=== PATIENT | male | born 1945 | race African-American/Black ===

== ENCOUNTER 2016-04-10 18:03 | Emergency (ER) | payer OTHER ==
[2016-04-10 18:23] VITALS: BP 207/122; PULSE 95; BMI 22.4
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
[2016-04-10] MEDS ORDERED: amLODIPine BESYLATE 5 MG TABLET (FP) PO ONE (18:28)
[2016-04-10 18:59] LABS: BASOPHIL 0.7 % (0-2.0); EOSINOPHIL 1.1 % (0-4.5); MCH 31.7 pg (25.7-33.7); MCHC 33.5 g/dl (32.0-35.9); MEAN CELL VOLUME 94.6 fl (80-96); MEAN PLT VOLUME 8.1 fl (7.5-11.1); NEUTROPHILS 58.4 % (42.8-82.8); PLATELET COUNT 157 K/MM3 (134-434); RDW 13.2 % (11.9-15.9); WHITE BLOOD COUNT 3.9 K/mm3 (4.0-10.0)
[2016-04-10] MEDS ORDERED: amLODIPine BESYLATE 5 MG TABLET (FP) ONE (19:13)
[2016-04-10 19:18] VITALS: TEMP 98.6
[2016-04-10 19:28] LABS: ALBUMIN 4.1 g/dl (3.4-5.0); ANION GAP 7 (8-16); BILIRUBIN,TOTAL 0.3 mg/dL (0.2-1.0); CALCIUM 8.5 mg/dL (8.5-10.1); CO2 30 mmol/L (21-32); CREATININE 1.1 mg/dL (0.7-1.3); GLUCOSE,RANDOM 117 mg/dL (74-106); MAGNESIUM 2.6 mg/dL (1.8-2.4); PHOSPHOROUS 2.4 mg/dL (2.5-4.9); SGOT/AST 48 U/L (15-37); SGPT/ALT 14 U/L (12-78)
[2016-04-10 19:31] LABS: ALK PHOS 78 U/L (45-117); TROPONIN I 0.05 ng/ml (0.00-0.05)
[2016-04-10 21:18] LABS: URINE APPEARANCE CLEAR; URINE BILIRUBIN NEGATIVE (NEGATIVE); URINE BLOOD NEGATIVE (NEGATIVE); URINE COLOR YELLOW; URINE GLUCOSE (UA) NEGATIVE (NEGATIVE); URINE KETONE NEGATIVE (NEGATIVE); URINE LEUK ESTERASE NEGATIVE (NEGATIVE); URINE NITRITE NEGATIVE (NEGATIVE); URINE PROTEIN NEGATIVE (NEGATIVE); URINE UROBILINOGEN NEGATIVE E.U./dl (0.2-1.0)
[2016-04-10 22:46] LABS: TROPONIN I 0.06 ng/ml (0.00-0.05)
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
--- NOTE | 2016-04-15 16:24 | EKG ---
Test Reason : Blood Pressure : / mmHG Vent. Rate : 096 BPM Atrial Rate : 096 BPM P-R Int : 160 ms QRS Dur : 094 ms QT Int : 348 ms P-R-T Axes : 042 020 033 degrees QTc Int : 439 ms SINUS RHYTHM WITH PREMATURE SUPRAVENTRICULAR COMPLEXES OTHERWISE NORMAL ECG WHEN COMPARED WITH ECG OF 11-NOV-2015 11:10, T WAVE VARIATION Confirmed by ANTHONY RON MD ([id number]) on 04/15/2016 4:24:30 PM Referred By: Confirmed By:ANTHONY RON MD
== END 2016-04-10 23:05 | disposition home or self-care (01) ==
LOC: JER 18:03
DX: R55 Syncope and collapse (principal); I10 Essential (primary) hypertension; G20 Parkinson's disease; I42.9 Cardiomyopathy, unspecified; V43.52XA Car driver injured in collision with other type car in traffic accident, initial encounter; Y93.89 Activity, other specified; Y92.410 Unspecified street and highway as the place of occurrence of the external cause
CPT/HCPCS: 36415; 70450-TC; 71010-TC; 80053; 81003; 82550; 82553; 83735; 84100; 84484; 85025; 93005; 93010; 99283-25

== ENCOUNTER 2017-01-12 11:38 | Observation (INO) | payer OTHER ==
--- NOTE | 2017-01-12 11:43 | PDOC ---
Attending Attestation - Resident Resident Name: Oskar Hayward - ED Attending Attestation I have performed the following: I have examined & evaluated the patient, The case was reviewed & discussed with the resident, I agree w/resident's findings & plan, Exceptions are as noted - Physicial Exam PE: GENERAL: Awake, alert, and fully oriented, in no acute distress HEAD: No signs of trauma EYES: PERRLA, EOMI, sclera anicteric, conjunctiva clear ENT: Auricles normal inspection, hearing grossly normal, nares patent, oropharynx clear without exudates. Moist mucosa NECK: Normal ROM, supple, no lymphadenopathy, JVD, or masses LUNGS: Breath sounds equal, clear to auscultation bilaterally. No wheezes, and no crackles HEART: Regular rate and rhythm, normal S1 and S2, no murmurs, rubs or gallops ABDOMEN: Soft, nontender, normoactive bowel sounds. No guarding, no rebound. No masses EXTREMITIES: Normal range of motion, no edema. No clubbing or cyanosis. No cords, erythema, or tenderness NEUROLOGICAL: Cranial nerves II through XII grossly intact. Normal speech, normal gait. +R facial droop (slight- with droop to R forehead; nasolabial fold intact) SKIN: Warm, Dry, normal turgor, no rashes or lesions noted. - Medical Decision Making 01/12/17 12:24 Case d/w Dr. Meza, field artillery operations specialist for neuro. NIHSS is very low at 1, not a tPA candidate. <Madie Galdamez - Last Filed: 01/12/17 12:39> - HPI HPI: 01/12/17 12:43 71 year old male, with significant past medical history of parkinson's, nonischemic cardiomyopathy, HTN, who presents to the emergency room s/p syncopal episode this morning at 10:30am. The patient slumped over at the table after eating breakfast. Denies headache, lightheadedness, chest pain prior to or after the fall. The patient does not have any complaints at the time. Denies fever, chills, nausea, vomiting. Denies recent travel. Denies sick contact. PCP: Dr. Vin Galan Neurologist: Dr. Meza <Millie Coburn - Last Filed: 01/12/17 12:43> - Medical Decision Making 01/12/17 14:[address] Schmidt [phone] 01/12/17 14:[address] Schmidt at [phone] <Brenda Devries - Last Filed: 01/12/17 14:53> NIH Stroke Scale - Last Known Well Date/Time & Onset Date Last Known Well: 01/12/17 Time Last Known Well: 10:30 - Initial Evaluation Level of consciousness: Alert Ask patient the month and their age: Answers both correctly Ask patient to open & close eyes; make fist and let go: Obeys both correctly Best gaze (horizontal eye movement): Normal Visual field testing: No visual field loss Facial paresis (Show teeth/raise eyebrows/close eyes tight): Minor paralysis ( flattened nasolabial fold, asymmetry on smiling) Motor Function: Left Arm: Normal Motor Function: Right Arm: Normal (extends arm 90 (or 45) degrees for 10 seconds without drift Motor Function: Left Leg: Normal (extends leg 30 degrees for 5 seconds without drift) Motor Function: Right Leg: Normal (extends leg 30 degrees for 5 seconds without drift) Limb Ataxia: No ataxia Sensory(Use pinprick test arms,legs,trunk,face/side to side): Normal Best language (Describe picture, name items, read sentences): No Aphasia Dysarthria (read several words): Normal articulation Extinction and Inattention: No abnormality - Total Score NIH Stroke Scale Score: 1 <Madie Galdamez - Last Filed: 01/12/17 12:39> tPA Exclusion Checklist 0-3hr - Time Elapsed Date last known well: 01/12/17 Time last known well: 10:30 Elaspsed time: Day(s) and 2 Hour(s) and 9 Minutes - Thrombolytic Therapy Candidate Is the patient eligible for Thrombolytic Therapy?: No - Exclusion Criteria 0-3hr SBP greater than 185 or DBP greater than 110mmHg despite tx: No Recent IC/spinal surgery,head trauma or stroke w/in last 3mo: No Hx of previous IC hemorrhage, IC neoplasm, AVM or aneurysm: No Active internal bleeding: No Blding diathesis(low plt ct, inc PTT,INR>1.7 or use of NOAC): No Symptoms suggest subarachnoid hemorrhage: No CT demonstrates multilobar infarct(>1/3 cerebral hemiphere): No Arterial puncture at noncompressible site in previous 7 days: No Blood glucose concentration less than 50mg/dL (2.7mmol/L): No - Relative Exclusion Criteria 0-3h Life expectancy <1yr/severe co-morbid illness/BACK SHOE CUTTER on admit: No : No Patient/family refused: No Rapid improvement: No Stroke severity too mild: Yes Recent acute [place] (w/in previous 3 months): No Seizure at onset with postictal residual neuro impairments: No Major surgery or serious trauma w/in previous 14 days: No Recent GI or hemorrhage (w/in previous 21 days): No - Ineligibility reason(s) Reasons No tPA given: See reason(s) noted above <Madie Galdamez - Last Filed: 01/12/17 12:39>
[2017-01-12] MEDS ORDERED: SODIUM CHLORIDE 1,000 ML IV SCH (12:15)
--- NOTE | 2017-01-12 12:16 | PDOC ---
History of Present Illness <Madie Galdamez - Last Filed: 01/12/17 12:29> - General History Source: Patient Exam Limitations: No Limitations - History of Present Illness Initial Comments: 01/12/17 12:30 71 year old M with pmh of HTN, parkinsons, nonischemic Cardiomyopathy, and multiple syncopal episodes in the past presenting with syncopal episode. Patient was eating breakfast with his sister at 1030 am. He slumped over and was unconscious for 20 minutes per sister. Sister called EMS and brought him in to the ED. Patient denies any preceding symptoms (DHILLON, chest pain, palpitations) , seizure activity, urinary incontinence, head trauma. PSH: denies All: NKDA SH: denies PCP: Vin Galan Neurology: Dr. Garcia --per patient <Oskar Hayward - Last Filed: 01/12/17 14:59> - General Chief Complaint: Syncope/Near Syncope Stated Complaint: altered mental status Time Seen by Provider: 01/12/17 11:42 Past History <Madie Galdamez - Last Filed: 01/12/17 12:29> - Past Medical History Cardiac Disorders: Yes (cardiomyopathy"loop" was removed) Disorders: Yes (bph) HTN: Yes - Surgical History Cardiac Surgery: Yes ("loop") - Suicide/Smoking/Psychosocial Hx Smoking History: Never smoked Have you smoked in the past 12 months: No Number of Cigarettes Smoked Daily: 0 Information on smoking cessation initiated: No Hx Alcohol Use: No Drug/Substance Use Hx: No Substance Use Type: None Hx Substance Use Treatment: No <Oskar Hayward - Last Filed: 01/12/17 14:59> - Past Medical History Allergies/Adverse Reactions: Allergies Allergy/AdvReac Type Severity Reaction Status Date / Time No Known Allergies Allergy Verified 04/10/16 18:20 Home Medications: Ambulatory Orders Amlodipine Besylate [Norvasc -] 1 tab PO DAILY 01/12/17 Carbidopa/Levodopa [Carbidopa-Levo ER 50-200 Tab] 1 tab PO HS 01/12/17 Carbidopa/Levodopa [Carbidopa-Levodopa 25-250 Tab] 1 tab PO BID 01/12/17 Escitalopram Oxalate [Lexapro -] 1 tab PO DAILY 01/12/17 Losartan Potassium 1 tab PO DAILY 01/12/17 Review of Systems - Review of Systems Able to Perform ROS?: Yes Comments:: 01/12/17 12:16 GENERAL/CONSTITUTIONAL: No fever or chills. No weakness. HEAD, EYES, EARS, NOSE AND THROAT: No acute change in vision. No ear pain or discharge. No sore throat. CARDIOVASCULAR: No chest pain or shortness of breath RESPIRATORY: No cough, wheezing, or hemoptysis. GASTROINTESTINAL: No nausea, vomiting, diarrhea or constipation. GENITOURINARY: No dysuria, frequency, or change in urination. MUSCULOSKELETAL: No joint or muscle swelling or pain. No neck or back pain. SKIN: No rash NEUROLOGIC: No headache, vertigo, loss of consciousness, or change in strength/ sensation. ENDOCRINE: No increased thirst. No abnormal weight change HEMATOLOGIC/LYMPHATIC: No anemia, easy bleeding, or history of blood clots. ALLERGIC/IMMUNOLOGIC: No hives or skin allergy. <Oskar Hayward - Last Filed: 01/12/17 14:59> *Physical Exam - Vital Signs Last Vital Signs Temp Pulse Resp BP Pulse Ox 98.7 F 72 16 141/90 98 01/12/17 12:02 01/12/17 12:02 01/12/17 12:02 01/12/17 12:02 01/12/17 12:02 <Madie Galdamez - Last Filed: 01/12/17 12:29> - Vital Signs Last Vital Signs Temp Pulse Resp BP Pulse Ox 98.7 F 72 16 141/90 98 01/12/17 12:02 01/12/17 12:02 01/12/17 12:02 01/12/17 12:02 01/12/17 12:02 - Physical Exam Comments: 01/12/17 12:16 GENERAL: Awake, alert, and fully oriented, in no acute distress, +resting tremor HEAD: No signs of trauma, normocephalic, atraumatic EYES: PERRLA, EOMI, sclera anicteric, conjunctiva clear ENT: Auricles normal inspection, hearing grossly normal, nares patent, oropharynx clear without exudates. Moist mucosa NECK: Normal ROM, supple, no lymphadenopathy, JVD, or masses LUNGS: No distress, speaks full sentences, clear to auscultation bilaterally HEART: Regular rate and rhythm, normal S1 and S2, no murmurs, rubs or gallops, peripheral pulses normal and equal bilaterally. ABDOMEN: Soft, nontender, normoactive bowel sounds. No guarding, no rebound. No masses EXTREMITIES: Normal inspection, Normal range of motion, no edema. No clubbing or cyanosis. NEUROLOGICAL: Right sided facial droop, decreased sensation in V1 distribution, Normal speech, Gait not observed, 5/5 strenght in UE/LE, sensation intact bilateral extremities. Cerebellar test unable to assess 2/2 to resting tremor SKIN: Warm, Dry, normal turgor, no rashes or lesions noted. <Oskar Hayward - Last Filed: 01/12/17 14:59> ED Treatment Course - RADIOLOGY Radiology Studies Ordered: Category Date Time Status HEAD CT (STROKE) [CT] Stat CT Scan 01/12/17 12:14 Ordered <Madie Galadmez - Last Filed: 01/12/17 12:29> - LABORATORY CBC & Chemistry Diagram: 01/12/17 12:26 01/12/17 13:41 <Oskar Hayward - Last Filed: 01/12/17 14:59> Medical Decision Making - Medical Decision Making 01/12/17 12:34 71 year old M with pmh of HTN, parkinsons, nonischemic Cardiomyopathy, and multiple syncopal episodes in the past presenting with syncopal episode. Code [place] Called. NIHSS- 1 Plan: Stroke order set ordered. Neurology called, Head CT performed. Head CT negative for any acute intracranial bleed <Oskar Hayward - Last Filed: 01/12/17 14:59> *DC/Admit/Observation/Transfer <Madie Galdamez - Last Filed: 01/12/17 12:29> - Discharge Dispostion Admit: Yes <Oskar Hayward - Last Filed: 01/12/17 14:59> Diagnosis at time of Disposition: CVA (cerebral vascular accident) Qualifiers: CVA mechanism: unspecified Qualified Code(s): I63.9 - Cerebral infarction, unspecified - Referrals Referrals: Vin Galan MD [Primary Care Provider] -
[2017-01-12 12:43] LABS: BASOPHIL 0.6 % (0-2.0); EOSINOPHIL 0.9 % (0-4.5); MCH 31.5 pg (25.7-33.7); MCHC 33.4 g/dl (32.0-35.9); MEAN CELL VOLUME 94.4 fl (80-96); NEUTROPHILS 57.6 % (42.8-82.8); PLATELET COUNT 154 K/MM3 (134-434); RDW 13.5 % (11.9-15.9); WHITE BLOOD COUNT 5.1 K/mm3 (4.0-10.0)
[2017-01-12 12:55] LABS: INR 1.05 (0.82-1.09); PROTHROMBIN TIME (PATIENT) 11.9 SEC (9.98-11.88)
[2017-01-12 14:14] LABS: ALBUMIN 4.1 g/dl (3.4-5.0); ANION GAP 9 (8-16); CALCIUM 9.1 mg/dL (8.5-10.1); CO2 30 mmol/L (21-32); CREATININE 1.3 mg/dL (0.7-1.3); GLUCOSE,RANDOM 106 mg/dL (74-106); SGPT/ALT 21 U/L (12-78)
[2017-01-12 14:15] LABS: ALK PHOS 67 U/L (45-117); BILIRUBIN,TOTAL 0.8 mg/dL (0.2-1.0); TOT PROT 7.6 g/dl (6.4-8.2)
[2017-01-12 14:16] LABS: SGOT/AST 36 U/L (15-37)
[2017-01-12 14:21] LABS: URINE APPEARANCE CLEAR; URINE BILIRUBIN NEGATIVE (NEGATIVE); URINE BLOOD NEGATIVE (NEGATIVE); URINE COLOR STRAW; URINE GLUCOSE (UA) NEGATIVE (NEGATIVE); URINE KETONE NEGATIVE (NEGATIVE); URINE NITRITE NEGATIVE (NEGATIVE); URINE PROTEIN NEGATIVE (NEGATIVE); URINE UROBILINOGEN NEGATIVE mg/dL (0.2-1.0)
[2017-01-12 14:42] LABS: CHOLESTEROL 181 mg/dL (50-200)
[2017-01-12 14:44] LABS: TROPONIN I 0.06 ng/ml (0.00-0.05)
[2017-01-12 14:53] LABS: CPK 277 IU/L (39-308)
[2017-01-12] MEDS ORDERED: ASPIRIN 81 MG CHEWABLE TABLETS PO ONE (14:56)
[2017-01-12] MEDS ORDERED: ATORVASTATIN CA 80 MG TABLET (FP) PO ONE (14:56)
[2017-01-12] MEDS ORDERED: ASPIRIN 325 MG TABLET ONE (15:14)
[2017-01-12] MEDS ORDERED: ATORVASTATIN CA 80 MG TABLET (FP) ONE (15:15)
[2017-01-12 16:00] VITALS: BMI 22.8
--- NOTE | 2017-01-12 17:16 | CON.NEURO ---
Consult - History of Present Illness History of Present Illness: cc episode of passing out. HPI 71 year old male history of htn, and parkinson disease, and cardiomyopathy . He has history of syncopal episode in past. He was having breastfast and slump over in chair. There was no tonic clonic activity, no tongue bite or incontinence and there was no post ictal confusion. As per sister, whole episodes may have lasted 15-20 minute. His was at bed side and sister was at bed side. They both feels that he is back to his baseline. He has been diagnoed with PD and he has blood pressure which fluctuate alot. 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 Cardio/Vascular: Yes: CHF, HTN, Other (Non-ischemic cardiomyopathy with recovery of LV function, Autonomic dysfunction with profound orthostatic hypotension) - Alcohol/Substance Use Hx Alcohol Use: No - Smoking History Smoking history: Never smoked Have you smoked in the past 12 months: No Aproximately how many cigarettes per day: 0 - Social History Usual Living Arrangement: With Spouse ADL: Independent History of Recent Travel: No Home Medications - Allergies Allergies/Adverse Reactions: Allergies Allergy/AdvReac Type Severity Reaction Status Date / Time No Known Allergies Allergy Verified 04/10/16 18:20 - Home Medications Home Medications: Ambulatory Orders Amlodipine Besylate [Norvasc -] 1 tab PO DAILY 01/12/17 Carbidopa/Levodopa [Carbidopa-Levo ER 50-200 Tab] 1 tab PO HS 01/12/17 Carbidopa/Levodopa [Carbidopa-Levodopa 25-250 Tab] 1 tab PO BID 01/12/17 Escitalopram Oxalate [Lexapro -] 1 tab PO DAILY 01/12/17 Losartan Potassium 1 tab PO DAILY 01/12/17 Physical Exam-Neuro Vital Signs: Vital Signs Temperature 98 F 01/12/17 16:34 Pulse Rate 86 01/12/17 16:34 Respiratory Rate 18 01/12/17 16:34 Blood Pressure 148/90 01/12/17 16:34 O2 Sat by Pulse Oximetry (%) 98 01/12/17 15:55 Labs: INR, PTT INR 1.05 (0.82-1.09) 01/12/17 12:26 - Neuro Exam Level Of Consciousness: Yes: Alert, Oriented to Person, Oriented to Place, Oriented to Time (Alert oriented x 3 speech is hypophonic and slow, able to follow simple and complex command) Eyes: Yes: PERRL Speech: Other Cranial Nerves II-XII Intact: Yes DTR's: 1+ Left Bicep, 1+ Right Bicep, 1+ Left Tricep, 1+ Right Tricep, 1+ Left Brachioradialis, 1+ Right Brachioradialis Motor Strength: 5/5: Left Arm, Right Arm, Left Leg, Right Leg Gait: Deferred Imaging - Results Cat Scan: Report Reviewed Assessment/Plan cc episode of passing out. HPI 71 year old male history of htn, and parkinson disease, and cardiomyopathy . He has history of syncopal episode in past. He was having breastfast and slump over in chair. There was no tonic clonic activity, no tongue bite or incontinence and there was no post ictal confusion. As per sister, whole episodes may have lasted 15-20 minute. His was at bed side and sister was at bed side. They both feels that he is back to his baseline. He has been diagnoed with PD and he has blood pressure which fluctuate alot. Past Medical History as above. No allergies no surgeries No history of drug abuse, he lives with and Retired Neurological Examination Alert oriented x 3 speech is hypophonic and slow, able to follow simple and complex command masked facies CN eomi and pupils is reactive no face asymmetry motor is 5/5 all four extremity there is bradykinesia in all four extremity there is mild resting tremor noticed on left side sensation is normal gait not tested Assessment- 1. this episodes seems to be syncope , unlikely to be seizure as there was no tonic clonic activity, post ictal confusion, no tongue bite or incontinence , ct head is normal 2. 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 suggest to do eeg and follow up outpatient 3. conitinue tele monitoring Thanks for consult Stan Meza MD
[2017-01-12 17:27] LABS: URINE LEUK ESTERASE Negative (NEGATIVE)
[2017-01-12 19:21] LABS: TROPONIN I 0.06 ng/ml (0.00-0.05)
--- NOTE | 2017-01-12 19:29 | HP ---
Admitting History and Physical - Admission History of Present Illness: Pt is a 71 y/o male who is a poor historian. Pt has a PMH significant for syncope, alzheimer's, parkinson's dz, nonischemic cardiomyopathy and HTN. Pt presented to the ER after a syncopal episode at home. Pt states he doesn't remember for how long it lasted. As per pt's daughter it lasted about 20 mins after eating breakfeast. In the ER pt had ct scan head wc did not show any acute pathology. 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 Cardiovascular: Yes: CHF, HTN, Other (Non-ischemic cardiomyopathy with recovery of LV function, Autonomic dysfunction with profound orthostatic hypotension) - Past Surgical History Past Surgical History: Yes: None - Smoking History Smoking history: Never smoked Have you smoked in the past 12 months: No Aproximately how many cigarettes per day: 0 - Alcohol/Substance Use Hx Alcohol Use: No - Social History ADL: Independent History of Recent Travel: No Home Medications - Allergies Allergies/Adverse Reactions: Allergies Allergy/AdvReac Type Severity Reaction Status Date / Time No Known Allergies Allergy Verified 04/10/16 18:20 - Home Medications Home Medications: Ambulatory Orders Amlodipine Besylate [Norvasc -] 1 tab PO DAILY 01/12/17 Carbidopa/Levodopa [Carbidopa-Levo ER 50-200 Tab] 1 tab PO HS 01/12/17 Carbidopa/Levodopa [Carbidopa-Levodopa 25-250 Tab] 1 tab PO BID 01/12/17 Escitalopram Oxalate [Lexapro -] 1 tab PO DAILY 01/12/17 Losartan Potassium 1 tab PO DAILY 01/12/17 Family Disease History - Family Disease History Family History: Unremarkable Review of Systems - Review of Systems Constitutional: reports: No Symptoms Eyes: reports: No Symptoms HENT: reports: No Symptoms Neck: reports: No Symptoms Cardiovascular: reports: Other (syncope) Respiratory: reports: No Symptoms Gastrointestinal: reports: No Symptoms Physical Examination Vital Signs: Vital Signs Temperature 98 F 01/12/17 16:34 Pulse Rate 86 01/12/17 16:34 Respiratory Rate 18 01/12/17 16:34 Blood Pressure 148/90 01/12/17 16:34 O2 Sat by Pulse Oximetry (%) 98 01/12/17 15:55 Constitutional: Yes: No Distress Eyes: Yes: WNL HENT: Yes: WNL Neck: Yes: WNL, Supple Cardiovascular: Yes: WNL, Regular Rate and Rhythm Respiratory: Yes: WNL, Regular, CTA Bilaterally Gastrointestinal: Yes: WNL, Normal Bowel Sounds, Soft Musculoskeletal: Yes: WNL Extremities: Yes: WNL Edema: No Neurological: Yes: WNL, Alert, Oriented ...Motor Strength: WNL Problem List - Problems (1) Syncope Assessment/Plan: Admitted to tele Serial cpk/troponin Cardio/neuro consults Check echo/carotid doppler Check MRI brain Pt also has a h/o orthostatic hypotension Will need to monitor closely Code(s): R55 - SYNCOPE AND COLLAPSE (2) HTN (hypertension) Assessment/Plan: Cont norvasc/losartan/asa Code(s): I10 - ESSENTIAL (PRIMARY) HYPERTENSION (3) Alzheimers disease Code(s): G30.9 - ALZHEIMER'S DISEASE, UNSPECIFIED (4) Nonischemic cardiomyopathy Code(s): I42.9 - CARDIOMYOPATHY, UNSPECIFIED (5) Parkinson disease Assessment/Plan: Cont sinemet Code(s): G20 - PARKINSON'S DISEASE
[2017-01-12] MEDS ORDERED: PT OWN MED DRAWER 7, Y5N ONE (21:00)
[2017-01-12] MEDS: HEPARIN NA (PORCINE) 5,000 UNITS/ML 1ML VIAL SQ SCH (21:13)
[2017-01-12] MEDS ORDERED: CARBIDOPA/LEVODOPA 25/250 TABLET (FP) PO SCH (22:00)
[2017-01-12] MEDS ORDERED: ATORVASTATIN CA 40 MG TABLET (FP) PO SCH (22:00)
[2017-01-13] MEDS: CARBIDOPA/LEVODOPA 25/250 TABLET (FP) PO SCH ×2 (05:39→13:26)
[2017-01-13 06:59] LABS: BASOPHIL 0.4 % (0-2.0); EOSINOPHIL 1.8 % (0-4.5); MCH 31.4 pg (25.7-33.7); MCHC 33.7 g/dl (32.0-35.9); MEAN CELL VOLUME 93.1 fl (80-96); MEAN PLT VOLUME 8.3 fl (7.5-11.1); NEUTROPHILS 46.3 % (42.8-82.8); PLATELET COUNT 144 K/MM3 (134-434); RDW 13.2 % (11.9-15.9); WHITE BLOOD COUNT 4.3 K/mm3 (4.0-10.0)
[2017-01-13 07:26] LABS: ALBUMIN 3.3 g/dl (3.4-5.0); ALK PHOS 64 U/L (45-117); ANION GAP 7 (8-16); BILIRUBIN,TOTAL 0.4 mg/dL (0.2-1.0); CALCIUM 8.4 mg/dL (8.5-10.1); CO2 29 mmol/L (21-32); GLUCOSE,RANDOM 78 mg/dL (74-106); SGOT/AST 18 U/L (15-37); SGPT/ALT 9 U/L (12-78)
[2017-01-13 07:49] LABS: TROPONIN I 0.07 ng/ml (0.00-0.05)
--- NOTE | 2017-01-13 08:49 | CON.CARD ---
Consult Consult Specialty:: Cardiology Referred by:: Dr. Schmidt Reason for Consultation:: Syncope - History of Present Illness Chief Complaint: Syncope History of Present Illness: 71 year old man with a history of recurrent syncope secondary to autonomic dysfunction/orthostatic hypotension related to his parkinsons disease, HTN with fluctuating BP, NICM, h/o EPS and Loop recorder which was unremarkable, follows at [facility], admitted with another episode of syncope. Pt states that he was sitting at the table yesterday eating and the next thing he knew EMS was there. He does not recall the event. He denies any preceding symptoms before this event. He has not had syncope recently. He does note his BP has been running high lately when normally it runs low. 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 Cardio/Vascular: Yes: CHF, HTN, Other (Non-ischemic cardiomyopathy with recovery of LV function, Autonomic dysfunction with profound orthostatic hypotension) - Past Surgical History Past Surgical History: Yes: None - Alcohol/Substance Use Hx Alcohol Use: No - Smoking History Smoking history: Never smoked Have you smoked in the past 12 months: No Aproximately how many cigarettes per day: 0 - Social History Usual Living Arrangement: With Spouse ADL: Independent History of Recent Travel: No Home Medications - Allergies Allergies/Adverse Reactions: Allergies Allergy/AdvReac Type Severity Reaction Status Date / Time No Known Allergies Allergy Verified 04/10/16 18:20 - Home Medications Home Medications: Ambulatory Orders Amlodipine Besylate [Norvasc -] 1 tab PO DAILY 01/12/17 Carbidopa/Levodopa [Carbidopa-Levo ER 50-200 Tab] 1 tab PO HS 01/12/17 Carbidopa/Levodopa [Carbidopa-Levodopa 25-250 Tab] 1 tab PO BID 01/12/17 Escitalopram Oxalate [Lexapro -] 1 tab PO DAILY 01/12/17 Losartan Potassium 1 tab PO DAILY 01/12/17 Family Disease History - Family Disease History Family History: Denies Review of Systems - Review of Systems Constitutional: denies: No Symptoms, Chills, Diaphoresis, Fever, Lethargy, Loss of Appetite, Malaise, Night Sweats, Unintentional Wgt. Loss, Weakness, Other Eyes: denies: No Symptoms, Blind Spots, Blurred Vision, Double Vision, Eye Pain , Floaters, Photophobia, Recent Change in Vision, Other HENT: denies: No Symptoms, Difficult Swallowing, Ear Discharge, Ear Pain, Epistaxis, Gingival Bleeding, Hearing Loss, Mouth Swelling, Nasal Congestion, Ocular Prosthesis, Throat Pain, Toothache, Ringing in Ears, Other Neck: denies: No Symptoms, Decreased ROM, Lumps, Pain on Movement, Stiffness, Swollen Glands, Tenderness, Other Cardiovascular: denies: No Symptoms, Chest Pain, Edema, Palpitations, Shortness of Breath, Other Respiratory: denies: No Symptoms, Cough, Exercise Intolerance, Hemoptysis, Orthopnea, PND, Snoring, SOB, SOB on Exertion, Wheezing, Other Gastrointestinal: denies: No Symptoms, Abdominal Pain, Bloating, Constipation, Diarrhea, Dysphagia, Indigestion, Melena, Nausea, Rectal Bleeding, Vomiting, Vomiting Blood, Other Genitourinary: denies: No Symptoms, Burning, Discharge, Dysuria, Flank Pain, Frequency, Hematuria, Incontinence, Lesions, Menses, Pain, Testicular Mass, Testicular Pain, Testicular Swelling, Urgency, Vaginal Bleeding, Other Breasts: denies: No Symptoms Reported, See HPI, Breast Implants, Discharge from Nipple, Lumps, Pain, Skin Changes, Other Musculoskeletal: denies: No Symptoms, Back Pain, Crepitus, Decreased ROM, Extremity Pain, Joint Pain, Joint Swelling, Muscle Pain, Muscle Cramps, Muscle Weakness, Other Integumentary: denies: No Symptoms, Blister, Bruising, Change in Color, Eczema, Erythema, Incision, Lesions, Lump, Pallor, Pruritis, Rash, Wound, Other Neurological: reports: Syncope, Tremors. denies: No Symptoms, Change in LOC, Change in Speech, Confusion, Dizziness, Headache, Incoordination, Numbness, Parasthesia, Pre-Existing Deficit, Seizure, Unsteady Gait, Weakness, Other Endocrine: denies: No Symptoms, Excessive Sweating, Flushing, Increased Hunger, Increased Thirst, Intolerance to Cold, Intolerance to Heat, Unexplained Weight Gain, Unexplained Weight Loss, Other Hematology/Lymphatic: denies: No Symptoms, Easily Bruised, Excessive Bleeding, Swollen Glands, Other Psychiatric: denies: No Symptoms, Altered Sleep Pattern, Anxiety, Depression, Hallucinations, Panic, Paranoia, Suicidal, Other - Risk Factors Known Risk Factors: Yes: Age, Hypertension Vital Signs: Vital Signs Temperature 98.1 F 01/13/17 05:15 Pulse Rate 86 01/13/17 05:15 Respiratory Rate 18 01/13/17 05:15 Blood Pressure 161/98 01/13/17 05:15 O2 Sat by Pulse Oximetry (%) 99 01/12/17 21:00 Constitutional: Yes: Well Nourished, No Distress, Calm Eyes: Yes: WNL, Conjunctiva Clear, EOM Intact, PERRL HENT: Yes: WNL, Atraumatic, Normocephalic Neck: Yes: WNL, Supple, Trachea Midline Respiratory: Yes: WNL, Regular, CTA Bilaterally. No: Rales, Rhonchi, Wheezes Gastrointestinal: Yes: WNL, Normal Bowel Sounds, Soft. No: Distention, Tenderness Renal/: Yes: WNL Cardiovascular: Yes: WNL, Regular Rate and Rhythm. No: Bradycardia, Tachycardia , Pulse Irregular, Gallop, Rub, Varicosities JVD: No Carotid Bruit: No PMI: Non-Displaced Heart Sounds: Yes: S1, S2. No: Split S2, S3, S4, Clicks, Gallop, Rub, Bruit Murmur: No: Systolic Murmur, Diastolic Murmur Musculoskeletal: Yes: WNL Extremities: Yes: WNL Edema: No Peripheral Pulses WNL: Yes Peripheral Pulses: 2+ Left Doralis Pedis, 2+ Right Dorsalis Pedis Integumentary: Yes: WNL Neurological: Yes: Alert, Oriented Psychiatric: Yes: Alert, Oriented - Other Data Labs, Other Data: CBC, BMP 01/13/17 06:25 01/13/17 06:25 INR, PTT INR 1.05 (0.82-1.09) 01/12/17 12:26 Troponin, BNP 01/12/17 01/13/17 18:00 06:25 Troponin I 0.06 H 0.07 H Troponin, BNP 01/12/17 01/13/17 18:00 06:25 Troponin I 0.06 H 0.07 H ekg nsr 78bpm, apc, no sig st abnl Echo: Report Reviewed Prior Cardiac Procedures: Cardiac Catheterization Imaging - Results Chest X-ray: Report Reviewed, Image Reviewed EKG: Report Reviewed, Image Reviewed Other: Report Reviewed, Image Reviewed (tele-nsr, apcs, pvcs, 3 beats nsvt) Assessment/Plan 71 year old man with a history of recurrent syncope secondary to autonomic dysfunction/orthostatic hypotension related to his parkinsons disease, HTN with fluctuating BP, NICM, h/o EPS and Loop recorder which was unremarkable, follows at [facility], admitted with another episode of syncope. Pt states that he was sitting at the table yesterday eating and the next thing he knew EMS was there. He does not recall the event. He denies any preceding symptoms before this event. He has not had syncope recently. He does note his BP has been running high lately when normally it runs low. Syncope-chronic intermittent secondary to autonomic dysfunction/orthostatic hypotension -unlikely arrhythmia -ekg wnl, no sig events on telemetry -cardiac enzymes wnl -pt is followed closely as outpatient for these events -no additional inpatient cardiac work up needed at this time -pt is acceptable for discharge home from a cardiac standpoint, recc close outpatient f/up this week, pt is aware of safety precautions and lifestyle modifications HTN-elevated, in past runs low normal -cont current home medical regimen and recc close outpatient f/up -goal is lenient control of BP to avoid orthostatic hypotension NICM-with recovery in LV function -euvolemic -cont home medical regimen, outpatient f/up Prior work up as below: ECHO- 09/06- 1. Overall, normal LV systolic function. 2. Normal RV size and mildly reduced RV function. 3. Thickened mitral valve. 4. There is a 0.4 x 0.7 cm echodensity on the posterior mitral valve leaflet which likely represents focal calcification (stable from 2014). 5. Mild LVH. 6. Insufficient TR to measure pulmonary artery pressures. STRESS- 09/05- persantine- nml perfusion, lvef 45% CATH- 07/03- normal cors, no as, nml lv fxn, nml lvedp CAROTID DOPPLER- 09/06- no ctd stenosis cardiac mri- nml bivent size and fxn, non specific scarring, LOOP- 06/29/13- reveal interrogation- reported as afib episodes but more likely sr with apcs
[2017-01-13] MEDS: HEPARIN NA (PORCINE) 5,000 UNITS/ML 1ML VIAL SQ SCH (09:21)
[2017-01-13] MEDS ORDERED: LOSARTAN POTASSIUM 50 MG TABLET (FP) PO SCH (10:00)
[2017-01-13] MEDS ORDERED: ASPIRIN COATED 81 MG TABLET.EC PO SCH (10:00)
[2017-01-13] MEDS ORDERED: ESCITALOPRAM OXALATE 10 MG TABLET (FP) PO SCH (10:00)
[2017-01-13] MEDS ORDERED: amLODIPine BESYLATE 2.5 MG TABLET (FP) PO SCH (10:00)
[2017-01-13 10:01] LABS: CHOLESTEROL 141 mg/dl
--- NOTE | 2017-01-13 10:11 | EKG ---
Test Reason : Blood Pressure : / mmHG Vent. Rate : 078 BPM Atrial Rate : 078 BPM P-R Int : 156 ms QRS Dur : 084 ms QT Int : 378 ms P-R-T Axes : 055 032 027 degrees QTc Int : 430 ms NORMAL SINUS RHYTHM WITH SINUS ARRHYTHMIA PREMATURE ATRIAL COMPLEXES WHEN COMPARED WITH ECG OF 10-APR-2016 18:12, NO SIGNIFICANT CHANGE WAS FOUND Confirmed by ANTHONY RON MD ([id number]) on 01/13/2017 10:11:03 AM Referred By: Confirmed By:ANTHONY RON MD
--- NOTE | 2017-01-13 13:02 | PN ---
Progress Note (short form) - Note Progress Note: He is admitted for episode of passing out. 71 year old male history of htn, and parkinson disease, and cardiomyopathy . He has history of syncopal episode in past. He was having breastfast and slump over in chair. There was no tonic clonic activity, no tongue bite or incontinence and there was no post ictal confusion. As per sister, whole episodes may have lasted 15-20 minute. His was at bed side and sister was at bed side. They both feels that he is back to his baseline. He has been diagnoed with PD and he has blood pressure which fluctuate alot. Neurological Examination Alert oriented x 3 speech is hypophonic and slow, able to follow simple and complex command masked facies CN eomi and pupils is reactive no face asymmetry motor is 5/5 all four extremity there is bradykinesia in all four extremity there is mild resting tremor noticed on left side sensation is normal gait not tested Assessment- 1. this episodes seems to be syncope , unlikely to be seizure as there was no tonic clonic activity, post ictal confusion, no tongue bite or incontinence , ct head is normal 2. 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 eeg is being done and would follow up Thanks for consult Stan Meza MD
[2017-01-13 15:45] VITALS: BP 106/60; PULSE 94; TEMP 97.7
== END 2017-01-13 16:29 | disposition home or self-care (01) ==
LOC: JER 11:38 → JERBED 14:55 → UNDOADMOB 14:55 → INTOOBSV 14:55 → J4W 15:02 → JERBED 16:02 → J4W 16:02 → UNDOADMOB 01-13 15:02
PROVIDERS: ADMIT Internal Medicine; ATTEND Internal Medicine
PROC: 3E0337Z Introduction of Electrolytic and Water Balance Substance into Peripheral Vein, Percutaneous Approach (ICD-10-PCS; principal; 2017-01-12)
PROC: 3E013GC Introduction of Other Therapeutic Substance into Subcutaneous Tissue, Percutaneous Approach (ICD-10-PCS; 2017-01-12)
DX: R55 Syncope and collapse (principal); I10 Essential (primary) hypertension; I42.9 Cardiomyopathy, unspecified; I50.9 Heart failure, unspecified; G20 Parkinson's disease; G30.9 Alzheimer's disease, unspecified; N40.0 Benign prostatic hyperplasia without lower urinary tract symptoms
CPT/HCPCS: 36415; 70450-TC; 80053; 80061; 81003; 82550; 82553; 83721; 84484; 85025; 85610; 93005; 93010; 93306-TC; 93880-TC; 95816; 96372; 97116-GP; 97161-GP; 99285-25; G0378; J1644

== ENCOUNTER 2017-10-02 14:53 | Inpatient (IN) | payer OTHER ==
--- NOTE | 2017-10-02 15:00 | PDOC ---
History of Present Illness - General Chief Complaint: Syncope/Near Syncope Stated Complaint: SYNCOPE History Source: Patient - History of Present Illness Initial Comments: The patient is a 71M with a history of Parkinson's Disease who presents for evaluation for syncopal fall x4 today. The patient endorses a history of syncopal falls of unknown etiology and reports a negative cardiogenic evaluation. His reports that he fell three times this morning, and on the fourth fall at approximately 1400, the patient also had assciated tonic-clonic seizure-like activity with +LOC and +urinary & fecal incontinence. She does endorse a history of urinary incontinence for the patient; however, the fecal incontinence is new. 10/02/17 16:27 Past History - Past Medical History Allergies/Adverse Reactions: Allergies Allergy/AdvReac Type Severity Reaction Status Date / Time No Known Allergies Allergy Verified 04/10/16 18:20 Home Medications: Ambulatory Orders Amlodipine Besylate [Norvasc -] 1 tab PO DAILY 01/12/17 Escitalopram Oxalate [Lexapro -] 1 tab PO DAILY 01/12/17 Losartan Potassium 1 tab PO DAILY 01/12/17 Carbidopa/Levodopa [Carbidopa-Levodopa 25-100 Tab] 1 each PO TID 10/02/17 Dextromethorphan HBr/Quinidine [Nuedexta 20-10 mg Capsule] 1 each PO BID Meloxicam 7.5 mg PO DAILY 10/02/17 Mirtazapine 15 mg PO DAILY 10/02/17 Cardiac Disorders: Yes (cardiomyopathy"loop" was removed) Disorders: Yes (bph) HTN: Yes Seizures: No - Surgical History Cardiac Surgery: Yes ("loop") - Suicide/Smoking/Psychosocial Hx Smoking History: Never smoked Have you smoked in the past 12 months: No Number of Cigarettes Smoked Daily: 0 Hx Alcohol Use: No Drug/Substance Use Hx: No Substance Use Type: None Hx Substance Use Treatment: No Review of Systems - Review of Systems Constitutional: No: Chills, Fever HEENTM: No: Blurred Vision (no acute change in vision ), Double Vision Respiratory: No: Cough, Shortness of Breath Cardiac (ROS): Yes: Syncope. No: Chest Pain, Irregular Heart Rate, Palpitations , Chest Tightness ABD/GI: Yes: Other (Suprapubic abdominal pain for 'several days'). No: Abdominal Distended, Diarrhea, Vomiting, Tarry Stools : No: Burning, Dysuria, Hematuria Musculoskeletal: No: Back Pain, Joint Swelling, Neck Pain Integumentary: No: Pruritus, Rash Neurological: Yes: Dizziness. No: Numbness, Paresthesia Psychiatric: No: Anxiety, Depression Endocrine: No: Intolerance to Cold, Intolerance to Heat Hematologic/Lymphatic: No: Anemia, Blood Clots *Physical Exam - Physical Exam General Appearance: Yes: Thin. No: Apparent Distress HEENT: positive: EOMI, MANDO, Other (b/l arcus senilis). negative: Scleral Icterus (R), Scleral Icterus (L) Neck: positive: Trachea midline, Supple. negative: Lymphadenopathy (R), Lymphadenopathy (L) Respiratory/Chest: positive: Lungs Clear. negative: Chest Tender, Respiratory Distress Cardiovascular: positive: Regular Rhythm, Regular Rate, S1, S2. negative: Murmur Vascular Pulses: Femoral (R): 2+, Femoral (L): 2+, Carotid (R): 2+, Carotid (L) : 2+, Dorsalis-Pedis (R): 2+, Doralis-Pedis (L): 2+ Gastrointestinal/Abdominal: positive: Normal Bowel Sounds, Tender (mild suprapubic TTP), Flat, Soft. negative: Distended, Guarding, Rebound, Hernia, Mass Male Genitalia: positive: normal genitalia. negative: testicular tenderness, testicular mass, inguinal hernia Musculoskeletal: negative: CVA Tenderness Extremity: positive: Normal Capillary Refill ED Treatment Course - LABORATORY CBC & Chemistry Diagram: 10/02/17 16:00 10/02/17 16:00 Medical Decision Making - Medical Decision Making The patient is a 71M with a history of Parkinson's Disease who presents for evaluation for syncopal fall x4 today. Patient also endorses several days of suprapubic pain without dysuria/hematuria. Ddx: Hemorrhagic/ischemic stroke, syncope, seizure, hypoglycemia, Parkinson's Disease/mechanical, UTI, Urosepsis ED Course: BMP, CBC, BGM, ECG, CXR, UA, Head CT Vitals repeated upon first evaluation and BP found to be 112/59 without tachycardia 10/02/17 16:52 Patient re-evaluated and found to have improved mentation according to spouse with more rapid and continued appropriate responses. 10/02/17 16:58 Patient found to have a UA concerning for UTI. Will treat patient for UTI with Rocephen 1g IV once. 10/02/17 17:[address] Head w/o contrast without acute intracranial pathology Dispo: Admission for syncopal workup and symptomatic anemia 10/02/17 20:49 *DC/Admit/Observation/Transfer Diagnosis at time of Disposition: Syncope Qualifiers: Syncope type: unspecified Qualified Code(s): R55 - Syncope and collapse - Discharge Dispostion Condition at time of disposition: Guarded - Referrals - Patient Instructions - Post Discharge Activity
[2017-10-02 15:05] VITALS: BMI 21.5
--- NOTE | 2017-10-02 15:44 | PDOC ---
Attending Attestation - HPI HPI: 10/02/17 15:44 The patient is a 71-year-old male with significant past medical history of BPH, syncopal episodes, Alzheimer's, cardiomyopathy, who presents to the emergency department today s/p multiple falls and a seizure-like episode at approximately 2:00 pm today. Upon exam, patient's symptoms have subsided, he is not tachycardic, however patient is a poor historian and moderately confused. The patient endorses symptoms of dizziness and loss of consciousness s/p fall, but denies hitting his head. Patient's states that she administers her ' s medications for Parkinson's with which he is compliant. As per , he has not had a seizure-like episode similar before. Denies any other kinds of injuries. Allergies: NKA Social history: none reported Surgical history: cardiomyopathy loop removed, Family history: none reported PCP: unknown - Physicial Exam PE: 10/02/17 15:58 ADULT Vitals: Triage vital signs reviewed General Appearance: No acute distress, well nourished, well developed Head: Atraumatic Cardiac: Regular rate and rhythm, no murmurs, no rubs, no gallops Lungs: Clear to auscultation bilateral, good air movement bilaterally Abdomen: Soft, nondistended, normal bowel sounds, nontender to palpation Genitourinary: Rectal: Exam deferred Extremities: Full range of motion to all extremities, no cyanosis, clubbing, or edema Skin: Warm and dry, no rashes or lesions, no rash, no petechiae Neuro: No focal or neuro deficits. AOX3; Cranial Nerves 2-12 grossly intact, Strength intact to all extremities, Sensation intact to all extremities, gait normal Psych: Normal mood, normal affect - Medical Decision Making 10/02/17 16:00 Documentation prepared by Amy Martin, acting as medical psychotherapist for Mt Morales MD. <Amy Martin - Last Filed: 10/02/17 16:01> - Resident Resident Name: José Luis Harris - ED Attending Attestation I have performed the following: I have examined & evaluated the patient, The case was reviewed & discussed with the resident, I agree w/resident's findings & plan, Exceptions are as noted - Medical Decision Making The patient is a 71-year-old male with significant past medical history of BPH, syncopal episodes, Alzheimer's, cardiomyopathy, who presents to the emergency department today s/p multiple falls and a seizure-like episode at approximately 2:00 pm today. Upon exam, patient's symptoms have subsided, he is not tachycardic, however patient is a poor historian and moderately confused. The patient endorses symptoms of dizziness and loss of consciousness s/p fall, but denies hitting his head. Patient's states that she administers her ' s medications for Parkinson's with which he is compliant. As per , he has not had a seizure-like episode similar before. We'll obtain labs head CT observing reassessed. Reevaluation: Labs notable for hemoglobin of 7 which is different than his hemoglobin from 1 year ago We'll add on coags type and screen obtain a fecal occult blood. Patient will need admission GI consultation and blood transfusion Dr. Bejarano to follow up labs and admitted for further management. <Mt Morales - Last Filed: 10/02/17 17:09> Heart Score/ECG Review - ECG Impressions Comment:: 10/02/17 17:09 EKG performed at 1500. Demonstrates sinus rhythm 92 bpm. MA 142. QRS 86. QTc 440. No ST elevations. No T-wave inversions. Normal axis. Interpreted by me. <Mt Morales - Last Filed: 10/02/17 17:09>
[2017-10-02 16:37] LABS: BASO % 0.3 % (0-2.0); EOS % 0.6 % (0-4.5); LYMPH % 15.5 % (8-40); MCH 31.2 pg (25.7-33.7); MCHC 33.1 g/dl (32.0-35.9); MEAN CELL VOLUME 94.4 fl (80-96); MEAN PLT VOLUME 8.3 fl (7.5-11.1); MONO % 6.4 % (3.8-10.2); NEUT % 77.2 % (42.8-82.8); PLATELET COUNT 283 K/MM3 (134-434); RBC 2.23 M/mm3 (4.00-5.60); WHITE BLOOD COUNT 6.6 K/mm3 (4.0-10.0)
[2017-10-02 17:03] LABS: ANION GAP 9 (8-16); BLOOD UREA NITROGEN 60 mg/dL (7-18); CALCIUM 8.8 mg/dL (8.5-10.1); CHLORIDE 109 mmol/L (98-107); CO2 26 mmol/L (21-32); CREATININE 1.4 mg/dL (0.7-1.3); GLUCOSE,RANDOM 109 mg/dL (74-106); POTASSIUM 4.8 mmol/L (3.5-5.1); SODIUM 144 mmol/L (136-145)
[2017-10-02 17:09] LABS: URINE APPEARANCE CLEAR; URINE BILIRUBIN NEGATIVE (<2.0 mg/dL); URINE COLOR LTYELLOW; URINE GLUCOSE (UA) NEGATIVE (NEGATIVE); URINE KETONE NEGATIVE (NEGATIVE); URINE NITRITE NEGATIVE (NEGATIVE); URINE PROTEIN NEGATIVE (NEGATIVE); URINE UROBILINOGEN NEGATIVE mg/dL (0.2-1.0)
[2017-10-02 17:13] LABS: URINE LEUK ESTERASE 3+ (NEGATIVE)
[2017-10-02 17:24] LABS: GRANULAR CASTS 1 /lpf; URINE MUCUS RARE
[2017-10-02] MEDS ORDERED: CEFTRIAXONE 1,000 MG in DEXTROSE 5%-WATER - 50 ML IVPB ONE (17:39)
[2017-10-02] MEDS ORDERED: CEFTRIAXONE 1 GM/50 ML BAG ONE (18:05)
[2017-10-02 18:23] LABS: INR 1.15 (0.82-1.09)
[2017-10-02 18:25] LABS: ACTIVATED PTT 27.4 SECONDS (25.2-36.5)
--- NOTE | 2017-10-02 21:49 | PN ---
Teaching Attending Note Name of Resident: Sigifredo Garcia ATTENDING PHYSICIAN STATEMENT I saw and evaluated the patient. I reviewed the resident's note and discussed the case with the resident. I agree with the resident's findings and plan as documented. SUBJECTIVE: 71 y/o M brought in for numerous falls today along with both urinary and fecal incontinence. As per , patient noted to have tonic clonic movements and confusion after. No prior h/o seizures. PMH: HTN, Parkinsons and h/o falls Ct head done was negative for any mass or bleed. OBJECTIVE: Agree with physical exam as documented by resident. CBCD WBC 6.6 K/mm3 (4.0-10.0) 10/02/17 16:00 RBC 2.23 M/mm3 (4.00-5.60) L 10/02/17 16:00 Hgb 7.0 GM/dL (11.7-16.9) L 10/02/17 16:00 Hct 21.0 % (35.4-49) L D 10/02/17 16:00 MCV 94.4 fl (80-96) 10/02/17 16:00 MCHC 33.1 g/dl (32.0-35.9) 10/02/17 16:00 RDW 17.0 % (11.9-15.9) H 10/02/17 16:00 Plt Count 283 K/MM3 (134-434) D 10/02/17 16:00 MPV 8.3 fl (7.5-11.1) 10/02/17 16:00 CMP Sodium 144 mmol/L (136-145) 10/02/17 16:00 Potassium 4.8 mmol/L (3.5-5.1) D 10/02/17 16:00 Chloride 109 mmol/L (98-107) H 10/02/17 16:00 Carbon Dioxide 26 mmol/L (21-32) 10/02/17 16:00 Anion Gap 9 (8-16) 10/02/17 16:00 BUN 60 mg/dL (7-18) H 10/02/17 16:00 Creatinine 1.4 mg/dL (0.7-1.3) H 10/02/17 16:00 Creat Clearance w eGFR 50.10 (>60) 10/02/17 16:00 Calcium 8.8 mg/dL (8.5-10.1) 10/02/17 16:00 Troponin, BNP 10/02/17 16:00 Troponin I 0.03 D ASSESSMENT AND PLAN: AMS new onset seizure vs syncope vs secondary to UTI. Admit to telemetry. fall risk protocol, aspiration precautions. Ativan prn for possible seizures, consider neurology consult. Orthostatics positive, IVF. Patient also noted to have anemia most likely secondary to GI bleed, monitor H&H and transfuse 1 unit and, protonix and GI consult for colonoscopy and EGD. UTI continue ceftriaxone and follow urine cultures. KATHY , get urine electrolytes and repeat BMP after IV hydration. troponin elevated most likely secondary to demand will trend.
--- NOTE | 2017-10-02 23:27 | HP ---
CHIEF COMPLAINT: falls PCP: HISTORY OF PRESENT ILLNESS: 71 y/o male with PMH HTN, Parkinson's presents after falling 4 times today. Patient admits to frequent falls and extensive cardiologic and neurologic workup that was negative. Falls occurred as patient got up from bed. Patient denies lightheadedness, dizziness, flushing, prodromal symptoms. His last fall today was witnessed by his who admits to fecal and urinary incontinence, as well as tonic-clonic movements lasting approximately 5 minutes. Also admits 2 day history of dark colored stools mixed with bright red blood. His states that this is first occurrence of fecal incontinence, tonic-clonic movements, and dark colored, blood stools. Denies prior episodes of melena, hematochezia. Denies headaches, fevers, chills, shortness of breath, chest pain , palpitations, abdominal pain, nausea, vomiting, diarrhea, dysuria, hematuria. History obtained with help of patient's : [facility] ER course was notable for: (1) 1 unit PRBC (2) ECG, CXR, UA, CT head (3) Recent Travel: PAST MEDICAL HISTORY: HTN, Parkinson's PAST SURGICAL HISTORY: Loop recorder, now removed. Social History: Smoking: denies Alcohol: denies Drugs: denies Family History: Mother: breast CA, father unknown heart condition Allergies : denies No Known Allergies Allergy (Verified 04/10/16 18:20) HOME MEDICATIONS: Home Medications Medication Instructions Recorded Amlodipine Besylate [Norvasc -] 1 tab PO DAILY 01/12/17 Escitalopram Oxalate [Lexapro -] 1 tab PO DAILY 01/12/17 Losartan Potassium 1 tab PO DAILY 01/12/17 Carbidopa/Levodopa 1 each PO TID 10/02/17 [Carbidopa-Levodopa 25-100 Tab] Dextromethorphan HBr/Quinidine 1 each PO BID 10/02/17 [Nuedexta 20-10 mg Capsule] Meloxicam 7.5 mg PO DAILY 10/02/17 Mirtazapine 15 mg PO DAILY 10/02/17 REVIEW OF SYSTEMS CONSTITUTIONAL: Absent: fever, chills, diaphoresis, CARDIOVASCULAR: Admits: syncope. Absent: chest pain, palpitations, irregular heart rate, lightheadedness, peripheral edema RESPIRATORY: Absent: cough, shortness of breath, dyspnea with exertion, orthopnea, wheezing, stridor, hemoptysis GASTROINTESTINAL: Admits: melena, hematochezia. Absent: abdominal pain, abdominal distension, nausea, vomiting, diarrhea, constipation GENITOURINARY: Absent: dysuria, frequency, urgency, hesitancy, hematuria, flank pain, genital pain HEMATOLOGIC/IMMUNOLOGIC: Absent: easy bleeding, easy bruising, frequent infections NEUROLOGIC: Absent: headache, focal weakness or paresthesias, dizziness PHYSICAL EXAMINATION Vital Signs - 24 hr 10/02/17 10/02/17 10/02/17 15:02 19:26 20:05 Temperature 97.5 F L 98.6 F Pulse Rate 79 Pulse Rate [ 89 88 Radial] Respiratory 18 20 20 Rate Blood Pressure 77/55 Blood Pressure 117/65 92/55 [Left Arm] O2 Sat by Pulse 100 99 100 Oximetry (%) 10/02/17 10/02/17 10/02/17 20:20 20:35 21:35 Temperature 98.8 F Pulse Rate 18 L Pulse Rate [ 99 H Radial] Respiratory 20 88 H Rate Blood Pressure 122/67 Blood Pressure 102/53 [Left Arm] O2 Sat by Pulse 99 97 Oximetry (%) GENERAL: Awake, confused, slow to respond, in no acute distress. HEAD: Normal with no signs of trauma. EYES: Pupils equal, round and reactive to light, extraocular movements intact, sclera anicteric. EARS, NOSE, THROAT: Oropharynx clear without exudates. Moist mucous membranes. NECK: Normal range of motion, supple without JVD LUNGS: Breath sounds equal, clear to auscultation bilaterally. No wheezes, and no crackles. HEART: Regular rate and rhythm, normal S1 and S2 without murmur, rub or gallop. ABDOMEN: Soft, nontender, not distended, normoactive bowel sounds, no guarding, no rebound, no masses. No hepatomegaly or splenomegaly. RECTAL: No external hemorrhoids noted. Rectal vault with trace amounts dark colored, tarry stool. FOBT was positive. MUSCULOSKELETAL: Normal range of motion at all joints. No bony deformities or tenderness. EXTREMITIES: 2+ pulses, warm, well-perfused. No peripheral edema. NEUROLOGICAL: No focal defecits. Strength 4/5 B/L upper and lower extremities. Slow speech. PSYCHIATRIC: Cooperative. Laboratory Results - last 24 hr 10/02/17 10/02/17 10/02/17 16:00 16:00 16:05 WBC 6.6 RBC 2.23 L Hgb 7.0 L Hct 21.0 L D MCV 94.4 MCH 31.2 MCHC 33.1 RDW 17.0 H Plt Count 283 D MPV 8.3 Absolute Neuts (auto) 5.1 Neutrophils % 77.2 D Lymphocytes % 15.5 D Monocytes % 6.4 Eosinophils % 0.6 Basophils % 0.3 Nucleated RBC % 0 PT with INR INR PTT (Actin FS) Sodium 144 Potassium 4.8 D Chloride 109 H Carbon Dioxide 26 Anion Gap 9 BUN 60 H Creatinine 1.4 H Creat Clearance w eGFR 50.10 POC Glucometer [phone] Random Glucose 109 H D Calcium 8.8 Troponin I 0.03 D Urine Color Urine Appearance Urine pH Ur Specific [place] Urine Protein Urine Glucose (UA) Urine Ketones Urine Blood Urine Nitrite Urine Bilirubin Urine Urobilinogen Ur Leukocyte Esterase Urine WBC (Auto) Urine RBC (Auto) Granular Casts Urine Mucus Stool Occult Blood Blood Type Antibody Screen Crossmatch 10/02/17 10/02/17 10/02/17 16:16 17:22 17:22 WBC RBC Hgb Hct MCV MCH MCHC RDW Plt Count MPV Absolute Neuts (auto) Neutrophils % Lymphocytes % Monocytes % Eosinophils % Basophils % Nucleated RBC % PT with INR 13.00 INR 1.15 H PTT (Actin FS) 27.4 Sodium Potassium Chloride Carbon Dioxide Anion Gap BUN Creatinine Creat Clearance w eGFR POC Glucometer Random Glucose Calcium Troponin I Urine Color Ltyellow Urine Appearance Clear Urine pH 5.0 D Ur Specific [place] 1.016 Urine Protein Negative Urine Glucose (UA) Negative Urine Ketones Negative Urine Blood 2+ H Urine Nitrite Negative Urine Bilirubin Negative Urine Urobilinogen Negative Ur Leukocyte Esterase 3+ H Urine WBC (Auto) 57 Urine RBC (Auto) 16 Granular Casts 1 Urine Mucus Rare Stool Occult Blood Blood Type O POSITIVE Antibody Screen Negative Crossmatch See Detail 10/02/17 17:25 WBC RBC Hgb Hct MCV MCH MCHC RDW Plt Count MPV Absolute Neuts (auto) Neutrophils % Lymphocytes % Monocytes % Eosinophils % Basophils % Nucleated RBC % PT with INR INR PTT (Actin FS) Sodium Potassium Chloride Carbon Dioxide Anion Gap BUN Creatinine Creat Clearance w eGFR POC Glucometer Random Glucose Calcium Troponin I Urine Color Urine Appearance Urine pH Ur Specific [place] Urine Protein Urine Glucose (UA) Urine Ketones Urine Blood Urine Nitrite Urine Bilirubin Urine Urobilinogen Ur Leukocyte Esterase Urine WBC (Auto) Urine RBC (Auto) Granular Casts Urine Mucus Stool Occult Blood Positive Blood Type Antibody Screen Crossmatch ASSESSMENT/PLAN: 71 y/o male with PMH HTN and Parkinson's disease presents after 4 falls with one episode fecal, urinary incontinence, tonic-clonic movements, and melanotic stools. Symptomatic anemia s/t upper vs. lower GI bleed -HB7.0/ Hct 21.0 -Patient was orthostatic- supine 102/53 (69) -> standing 93/57 (98) -Patient received 2 units PRBC -Trending H/H -NPO -Protonix -GI was paged. Consult requested. ?Seizure -F/U lactic acid -Neurology consult requested -Ativan PRN if seizure activity continues KATHY -BUN 60/ Cr 1.4 -IVNS -F/U Cr UTI -UA showed 2+ blood, 3+ leukocyte esterase -F/U urine cultures -Continue Ceftriaxone HTN -Holding BP medications for now d/t likely GI bleed Parkinson's disease -Continue patient's home medication carbidopa-levodopa Fall Risk Precautions FEN -Patient received 2 units PRBC, IVNS -No electrolyte repletion at this time -NPO Advance directives: Full code Disposition: Admit to telemetry floor for monitoring Case discussed with hospice care consultant attending Visit type - Emergency Visit Emergency Visit: Yes ED Registration Date: 10/02/17 Care time: The patient presented to the Emergency Department on the above date and was hospitalized for further evaluation of their emergent condition. - New Patient This patient is new to me today: Yes Date on this admission: 10/03/17 - Critical Care Critical Care patient: No Hospitalist Screening - Colonoscopy Questionnaire Colonoscopy Questionnaire: Colonoscopy Questionnaire - Patient: 50 - 75 years old and never had a screening colonoscopy: Unknown History of colon or rectal polyps, or CA: Unknown History of IBD, Crohn's disease or UC: Unknown History of abdominal radiation therapy as a child: Unknown - Relative: 1 with colon or rectal CA, or polyps at age 60 or younger: Unknown Colon or rectal CA diagnosed at age 45 or younger: Unknown Multiple relatives with colon or rectal CA: Unknown - Outcome: Screening Result: Negative Screen
[2017-10-03] MEDS ORDERED: LORazepam 2 MG/ML SDV VIAL IVPUSH PRN (01:54)
[2017-10-03] MEDS ORDERED: SODIUM CHLORIDE 1,000 ML IV SCH (02:00)
[2017-10-03] MEDS: CARBIDOPA/LEVODOPA 25/100 TABLET (FP) PO SCH ×3 (06:23→21:15)
[2017-10-03 07:44] LABS: BASO % 0.5 % (0-2.0); EOS % 2.1 % (0-4.5); HEMATOCRIT 23.6 % (35.4-49); HEMOGLOBIN 8.2 GM/dL (11.7-16.9); LYMPH % 29.9 % (8-40); MCH 31.1 pg (25.7-33.7); MCHC 34.8 g/dl (32.0-35.9); MEAN CELL VOLUME 89.4 fl (80-96); MONO % 7.9 % (3.8-10.2); NEUT % 59.6 % (42.8-82.8); PLATELET COUNT 259 K/MM3 (134-434); RBC 2.64 M/mm3 (4.00-5.60); RDW 18.3 % (11.9-15.9); WHITE BLOOD COUNT 9.2 K/mm3 (4.0-10.0)
--- NOTE | 2017-10-03 07:45 | CON.GI ---
Consult Consult Specialty:: GI: For Dr. Wilder Referred by:: Hospitalist Service Reason for Consultation:: Anemia - History of Present Illness Chief Complaint: "I blacked out" History of Present Illness: 71M admitted for evaluation of syncope. Had 4 falls w/ syncope yesterday. Has a history of syncope. Noted ho have hgb of 7 and given 2 UPRBC. No overt bleeding was reported. he described some lower abdominal discomfort. In 01/07 Hgb was 11.5. He takes ibuprofen "a couple of times per month". he does not take ASA. His medication list includes meloxicam however. He remembers remotely having EGD and colonoscopy in the past. 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: Alzheimer's, Parkinson's, Syncope Cardio/Vascular: Yes: CHF, HTN, Other (Non-ischemic cardiomyopathy with recovery of LV function, Autonomic dysfunction with profound orthostatic hypotension) - Past Surgical History Past Surgical History: Yes: None - Alcohol/Substance Use Hx Alcohol Use: No - Smoking History Smoking history: Never smoked Have you smoked in the past 12 months: No Aproximately how many cigarettes per day: 0 - Social History Usual Living Arrangement: With Spouse ADL: Independent 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 History of Recent Travel: No Home Medications - Allergies Allergies/Adverse Reactions: Allergies Allergy/AdvReac Type Severity Reaction Status Date / Time No Known Allergies Allergy Verified 04/10/16 18:20 - Home Medications Home Medications: Ambulatory Orders Amlodipine Besylate [Norvasc -] 1 tab PO DAILY 01/12/17 Escitalopram Oxalate [Lexapro -] 1 tab PO DAILY 01/12/17 Losartan Potassium 1 tab PO DAILY 01/12/17 Carbidopa/Levodopa [Carbidopa-Levodopa 25-100 Tab] 1 each PO TID 10/02/17 Dextromethorphan HBr/Quinidine [Nuedexta 20-10 mg Capsule] 1 each PO BID Meloxicam 7.5 mg PO DAILY 10/02/17 Mirtazapine 15 mg PO DAILY 10/02/17 Family Disease History - Family Disease History Other Family History: No family history of colorectal cancer or other GI malignancy Review of Systems - Review of Systems Constitutional: denies: Chills Cardiovascular: denies: Chest Pain, Shortness of Breath Gastrointestinal: reports: Abdominal Pain, Constipation. denies: Diarrhea, Melena, Rectal Bleeding Physical Exam-GI Vital Signs: Vital Signs Temperature 98.5 F 10/03/17 05:00 Pulse Rate 88 10/03/17 05:00 Respiratory Rate 18 10/03/17 05:00 Blood Pressure 140/72 10/03/17 05:00 O2 Sat by Pulse Oximetry (%) 97 10/02/17 20:35 Constitutional: Yes: Calm Eyes: No: Sclera Icterus Cardiovascular: Yes: Regular Rate and Rhythm. No: Murmur Respiratory: Yes: CTA Bilaterally Gastrointestinal Inspection: No: Distention, Scars ...Auscultate: Yes: Normoactive Bowel Sounds ...Palpate: No: Hepatomegaly, Splenomegaly, Tenderness ...Percussion: No: Tympanitic ...Rectal Exam: Yes: Other (No external lesions, no masses copious dark brown stool in rectal vault, guaiac +) Edema: No (No LE edema) Neurological: Yes: Alert Labs: INR 1.15 (0.82-1.09) H 10/02/17 17:22 Laboratory Tests 01/13/17 01/13/17 10/02/17 06:25 06:25 16:00 Hgb 11.5 L D 7.0 L BUN 16 Creatinine 1.0 D 10/02/17 16:00 Hgb BUN 60 H Creatinine 1.4 H Problem List - Problems (1) Anemia Assessment/Plan: Guaiac + on exam without overt bleeding and ? meloxicam on home medication list currently hemodynamically stable Discussed EGD followed by colonosocpy if unrevealing for evaluation of a bleeding source. Discussed potential risks of the procedures like but not limited to bleeding, perforation requiring surgery to repair, infection, sedation medication effects all of which could be potentially life threatening. He says that he would think about these options. I discussed the above and Mr. Cary's decision re w/u with his as well via telephone [phone]. For now: NPO IV hydration Monitor H/H Protonix drip @ 8mg/hr Code(s): D64.9 - ANEMIA, UNSPECIFIED
[2017-10-03 08:16] LABS: CHLORIDE 109 mmol/L (98-107); POTASSIUM 4.4 mmol/L (3.5-5.1); SODIUM 145 mmol/L (136-145)
[2017-10-03 08:31] LABS: ALBUMIN 2.9 g/dl (3.4-5.0); ALK PHOS 672 U/L (45-117); ANION GAP 8 (8-16); BLOOD UREA NITROGEN 50 mg/dL (7-18); CALCIUM 8.9 mg/dL (8.5-10.1); CO2 28 mmol/L (21-32); CREATININE 1.1 mg/dL (0.7-1.3); GLUCOSE,RANDOM 90 mg/dL (74-106); SGOT/AST 166 U/L (15-37); SGPT/ALT 205 U/L (12-78); TOT PROT 6.6 g/dl (6.4-8.2)
--- NOTE | 2017-10-03 08:55 | EKG ---
Test Reason : Blood Pressure : / mmHG Vent. Rate : 092 BPM Atrial Rate : 092 BPM P-R Int : 142 ms QRS Dur : 086 ms QT Int : 356 ms P-R-T Axes : 050 029 048 degrees QTc Int : 440 ms NORMAL SINUS RHYTHM NONSPECIFIC T WAVE ABNORMALITY ABNORMAL ECG Confirmed by JUDY KUHN MD ([id number]) on 10/03/2017 8:55:07 AM Referred By: Confirmed By:JUDY KUHN MD
--- NOTE | 2017-10-03 09:04 | CONSULT ---
Consult - text type - Consultation Consultation Note: Neurology CHIEF COMPLAINT: falls HISTORY OF PRESENT ILLNESS: 71 y/o male with PMH HTN, Parkinson's presents after reported multiple falls. Reportedly has history of falls. Per notes, mention of incontinence and possibly tonic clonic activity. Patient denies history of seizures. Of note, anemic on labs and required RBC transfusion. CT head reivewed and without acute changes. Denies prior episodes of melena, hematochezia. Denies headaches, fevers , chills, shortness of breath, chest pain, palpitations, abdominal pain, nausea , vomiting, diarrhea, dysuria, hematuria. PAST MEDICAL HISTORY: HTN, Parkinson's PAST SURGICAL HISTORY: Loop recorder, now removed. Social History: Smoking: denies Alcohol: denies Drugs: denies Family History: Mother: breast CA, father unknown heart condition Allergies : denies No Known Allergies Allergy (Verified 04/10/16 18:20) HOME MEDICATIONS: Home Medications Medication Instructions Recorded Amlodipine Besylate [Norvasc -] 1 tab PO DAILY 01/12/17 Escitalopram Oxalate [Lexapro -] 1 tab PO DAILY 01/12/17 Losartan Potassium 1 tab PO DAILY 01/12/17 Carbidopa/Levodopa 1 each PO TID 10/02/17 [Carbidopa-Levodopa 25-100 Tab] Dextromethorphan HBr/Quinidine 1 each PO BID 10/02/17 [Nuedexta 20-10 mg Capsule] Meloxicam 7.5 mg PO DAILY 10/02/17 Mirtazapine 15 mg PO DAILY 10/02/17 REVIEW OF SYSTEMS CONSTITUTIONAL: Absent: fever, chills, diaphoresis, CARDIOVASCULAR: Admits: syncope. Absent: chest pain, palpitations, irregular heart rate, lightheadedness, peripheral edema RESPIRATORY: Absent: cough, shortness of breath, dyspnea with exertion, orthopnea, wheezing, stridor, hemoptysis GASTROINTESTINAL: Admits: melena, hematochezia. Absent: abdominal pain, abdominal distension, nausea, vomiting, diarrhea, constipation GENITOURINARY: Absent: dysuria, frequency, urgency, hesitancy, hematuria, flank pain, genital pain HEMATOLOGIC/IMMUNOLOGIC: Absent: easy bleeding, easy bruising, frequent infections NEUROLOGIC: Absent: headache, focal weakness or paresthesias, dizziness PHYSICAL EXAMINATION Vital Signs Temperature 98.5 F 10/03/17 05:00 Pulse Rate 88 10/03/17 05:00 Respiratory Rate 18 10/03/17 05:00 Blood Pressure 140/72 10/03/17 05:00 O2 Sat by Pulse Oximetry (%) 97 10/02/17 20:35 GENERAL: Awake, confused, slow to respond, in no acute distress. HEAD: Normal with no signs of trauma. EYES: Pupils equal, round and reactive to light, extraocular movements intact, sclera anicteric. EARS, NOSE, THROAT: Oropharynx clear without exudates. Moist mucous membranes. NECK: Normal range of motion, supple without JVD LUNGS: Breath sounds equal, clear to auscultation bilaterally. No wheezes, and no crackles. HEART: Regular rate and rhythm, normal S1 and S2 without murmur, rub or gallop. ABDOMEN: Soft, nontender, not distended, normoactive bowel sounds, no guarding, no rebound, no masses. No hepatomegaly or splenomegaly. RECTAL: No external hemorrhoids noted. Rectal vault with trace amounts dark colored, tarry stool. FOBT was positive. MUSCULOSKELETAL: Normal range of motion at all joints. No bony deformities or tenderness. EXTREMITIES: 2+ pulses, warm, well-perfused. No peripheral edema. NEUROLOGICAL: No focal defecits. Bradykinesia noted, no tremor, +cogwheeling, sensory intact, grossly intact strenght, gait deferred PSYCHIATRIC: Cooperative. Laboratory Results - last 24 hr 10/02/17 10/02/17 10/02/17 16:00 16:00 16:05 WBC 6.6 RBC 2.23 L Hgb 7.0 L Hct 21.0 L D MCV 94.4 MCH 31.2 MCHC 33.1 RDW 17.0 H Plt Count 283 D MPV 8.3 Absolute Neuts (auto) 5.1 Neutrophils % 77.2 D Lymphocytes % 15.5 D Monocytes % 6.4 Eosinophils % 0.6 Basophils % 0.3 Nucleated RBC % 0 PT with INR INR PTT (Actin FS) Sodium 144 Potassium 4.8 D Chloride 109 H Carbon Dioxide 26 Anion Gap 9 BUN 60 H Creatinine 1.4 H Creat Clearance w eGFR 50.10 POC Glucometer [phone] Random Glucose 109 H D Calcium 8.8 Troponin I 0.03 D Urine Color Urine Appearance Urine pH Ur Specific [place] Urine Protein Urine Glucose (UA) Urine Ketones Urine Blood Urine Nitrite Urine Bilirubin Urine Urobilinogen Ur Leukocyte Esterase Urine WBC (Auto) Urine RBC (Auto) Granular Casts Urine Mucus Stool Occult Blood Blood Type Antibody Screen Crossmatch 10/02/17 10/02/17 10/02/17 16:16 17:22 17:22 WBC RBC Hgb Hct MCV MCH MCHC RDW Plt Count MPV Absolute Neuts (auto) Neutrophils % Lymphocytes % Monocytes % Eosinophils % Basophils % Nucleated RBC % PT with INR 13.00 INR 1.15 H PTT (Actin FS) 27.4 Sodium Potassium Chloride Carbon Dioxide Anion Gap BUN Creatinine Creat Clearance w eGFR POC Glucometer Random Glucose Calcium Troponin I Urine Color Ltyellow Urine Appearance Clear Urine pH 5.0 D Ur Specific [place] 1.016 Urine Protein Negative Urine Glucose (UA) Negative Urine Ketones Negative Urine Blood 2+ H Urine Nitrite Negative Urine Bilirubin Negative Urine Urobilinogen Negative Ur Leukocyte Esterase 3+ H Urine WBC (Auto) 57 Urine RBC (Auto) 16 Granular Casts 1 Urine Mucus Rare Stool Occult Blood Blood Type O POSITIVE Antibody Screen Negative Crossmatch See Detail 10/02/17 17:25 WBC RBC Hgb Hct MCV MCH MCHC RDW Plt Count MPV Absolute Neuts (auto) Neutrophils % Lymphocytes % Monocytes % Eosinophils % Basophils % Nucleated RBC % PT with INR INR PTT (Actin FS) Sodium Potassium Chloride Carbon Dioxide Anion Gap BUN Creatinine Creat Clearance w eGFR POC Glucometer Random Glucose Calcium Troponin I Urine Color Urine Appearance Urine pH Ur Specific [place] Urine Protein Urine Glucose (UA) Urine Ketones Urine Blood Urine Nitrite Urine Bilirubin Urine Urobilinogen Ur Leukocyte Esterase Urine WBC (Auto) Urine RBC (Auto) Granular Casts Urine Mucus Stool Occult Blood Positive Blood Type Antibody Screen Crossmatch ASSESSMENT/PLAN: 71 y/o male with PMH HTN, Parkinson's presents after reported multiple falls. Reportedly has history of falls. Per notes, mention of incontinence and possibly tonic clonic activity. Patient denies history of seizures. Of note, anemic on labs and required RBC transfusion. CT head reivewed and without acute changes. Likely 2/2 anemia, continue monitoring CBC. Transfuse as needed. Check orthostatics, maintain hydration, deconditioned appearing. No history of seizures, would not start AED at this time. UTI on labs, f/p cultures, Abx as needed. Monitor BP, maintain normotensive range. Can continue Sinemet for Parkinson's. PT recommended, likely to need rehab placement if ambulation does not improve with medical optimization. Fall precautions. Cardiology followup.
[2017-10-03] MEDS ORDERED: DEXTROSE 5%-WATER - 50 ML IVPB ONE (09:09)
[2017-10-03] MEDS ORDERED: cefTRIAXone SODIUM 1 GM VIAL ONE (09:09)
[2017-10-03] MEDS: PANTOPRAZOLE SODIUM 80 MG in SODIUM CHLORIDE 100 ML IVPB SCH ×2 (09:37→17:58)
[2017-10-03] MEDS: CEFTRIAXONE 1 GM in DEXTROSE 5%-WATER - 50 ML IVPB SCH (09:38)
[2017-10-03] MEDS ORDERED: PANTOPRAZOLE SODIUM 40 MG VIAL IVPUSH SCH (10:00)
[2017-10-03 13:17] LABS: HEMATOCRIT 22.7 % (35.4-49); HEMOGLOBIN 7.6 GM/dL (11.7-16.9); MCH 30.1 pg (25.7-33.7); MCHC 33.5 g/dl (32.0-35.9); MEAN CELL VOLUME 89.9 fl (80-96); MEAN PLT VOLUME 7.7 fl (7.5-11.1); PLATELET COUNT 263 K/MM3 (134-434); RBC 2.53 M/mm3 (4.00-5.60); RDW 18.2 % (11.9-15.9); WHITE BLOOD COUNT 7.6 K/mm3 (4.0-10.0)
--- NOTE | 2017-10-03 13:31 | PN ---
Teaching Attending Note Name of Resident: Primo Taylor ATTENDING PHYSICIAN STATEMENT I saw and evaluated the patient. I reviewed the resident's note and discussed the case with the resident. I agree with the resident's findings and plan as documented. SUBJECTIVE: No fever or chills. No abd pain , does not feel light headed. He had a syncopal episode ths am when he stood up with PT . OBJECTIVE: NAD, awake , alert , knows his location and age. does not know why he is here. CV: regularly irreg . no MRG Lungs: CTAB abd: soft, NT, ND ,NL BS . ext: no edema or erythema ASSESSMENT AND PLAN: 71 y/o gentleman with h/o Parkinsonism's, HTN and recurrent falls who presented from home with a syncopal episode in the shower accompanied by melena nad BRBPR 1- Syncopal episode: likely due to orthostatic hypotension from acute blood loss anemia. he has parkinson's and his prevous falls might have been mechanical in nature or due to autonomic dysfunction with Parkinson's and Parkinson's medications unlikely had a seizure but will watch for that in house - treat anemia - IVF - hold antihypertensive meds - tele to detect any arrhythmias - repeat orthostatic VS 2- Acute blood loss anemia due to likely upper GI bleed. less likely lower GI bleed - s/p RBC transfusion - repeat H&H this afternoon - pt and his are agreeable to procedure. - this gentleman has no h/o CAD, no signs of ACS , EKG showed no acute ischemic changes, blocks or arrhythmias, on exam has possible PVCs, but no signs of heart failure. last echo in 01/07 with NL EF, minimal valvular abnormalities. his vitals are currently stable. his syncope is likely due to orthostatic hypotension .Hi sUTI is being treated. His functional status is poor though. His clinical risk for uli-Op cardiac complications for this low risk procedure is low to intermediate given his poor functional status. However , no further cardiac work up is recommended before this procedure as it is unlikely to change outcome . 3- h/o HTN: hold anti hypertensive and monitor BP . in no further bled , will resume 4- Parkinson's : cont Carbi/levo 5- UTI: cont ceftriaxone. follow urine cx. HLOC
--- NOTE | 2017-10-03 14:56 | PN ---
Physical Exam: SUBJECTIVE: Patient seen and examined at bedside. No acute subjective complaints , cannot recall circumstances of syncope, cannot recall passing bloody stool. Had further syncopal episode approximately 10 am when trial of standing was attempted by PT. OBJECTIVE: Vital Signs Period Temp Pulse Resp BP Sys/Zheng Pulse Ox Last 24 Hr 97.5 F-99 F 79-99 16-20 77-152/53-85 96-100 GENERAL: Undernourished patient with temporal wasting, oriented x 3, subject to psychomotor retardation and/or bradykinesia. Remains orthostatic on serial tests of supine vs. seated position, cannot sustain standing position. HEAD: Normal with no signs of trauma. EYES: PERRLA, EOMI, sclera anicteric, conjunctiva clear ENT: moist mucous membranes. NECK: Trachea midline, full range of motion, supple, no JVD, no cervical LAD LUNGS: Breath sounds equal, clear to auscultation bilaterally, no wheezes, no crackles, no accessory muscle use HEART: S1S2 no m/r/g, PVCs every 5 or 6 cardiac cycles ABDOMEN: Soft, nontender, nondistended, normoactive bowel sounds, no guarding, no rebound, no hepatosplenomegaly, no masses. EXTREMITIES: 2+ pulses, warm, well-perfused, no edema. NEUROLOGICAL: CNII-XII grossly intact apart from mild facial droop on right. Pronator drift b/l. Motor strength 5/5 x 4 extremities, pronounced bradykinesia , no tremor, mild rigidity in UE b/l. Sensorium grossly intact. Could not comply with instructions for cerebellar exam. PSYCH: Affect moderately blunted Laboratory Results - last 24 hr 10/02/17 10/02/17 10/02/17 16:00 16:00 16:05 WBC 6.6 RBC 2.23 L Hgb 7.0 L Hct 21.0 L D MCV 94.4 MCH 31.2 MCHC 33.1 RDW 17.0 H Plt Count 283 D MPV 8.3 Absolute Neuts (auto) 5.1 Neutrophils % 77.2 D Lymphocytes % 15.5 D Monocytes % 6.4 Eosinophils % 0.6 Basophils % 0.3 Nucleated RBC % 0 PT with INR INR PTT (Actin FS) Sodium 144 Potassium 4.8 D Chloride 109 H Carbon Dioxide 26 Anion Gap 9 BUN 60 H Creatinine 1.4 H Creat Clearance w eGFR 50.10 POC Glucometer [phone] Random Glucose 109 H D Lactic Acid Calcium 8.8 Total Bilirubin AST ALT Alkaline Phosphatase Troponin I 0.03 D Total Protein Albumin Urine Color Urine Appearance Urine pH Ur Specific [place] Urine Protein Urine Glucose (UA) Urine Ketones Urine Blood Urine Nitrite Urine Bilirubin Urine Urobilinogen Ur Leukocyte Esterase Urine WBC (Auto) Urine RBC (Auto) Granular Casts Urine Mucus Stool Occult Blood Blood Type Antibody Screen Crossmatch 10/02/17 10/02/17 10/02/17 16:16 17:22 17:22 WBC RBC Hgb Hct MCV MCH MCHC RDW Plt Count MPV Absolute Neuts (auto) Neutrophils % Lymphocytes % Monocytes % Eosinophils % Basophils % Nucleated RBC % PT with INR 13.00 INR 1.15 H PTT (Actin FS) 27.4 Sodium Potassium Chloride Carbon Dioxide Anion Gap BUN Creatinine Creat Clearance w eGFR POC Glucometer Random Glucose Lactic Acid Calcium Total Bilirubin AST ALT Alkaline Phosphatase Troponin I Total Protein Albumin Urine Color Ltyellow Urine Appearance Clear Urine pH 5.0 D Ur Specific [place] 1.016 Urine Protein Negative Urine Glucose (UA) Negative Urine Ketones Negative Urine Blood 2+ H Urine Nitrite Negative Urine Bilirubin Negative Urine Urobilinogen Negative Ur Leukocyte Esterase 3+ H Urine WBC (Auto) 57 Urine RBC (Auto) 16 Granular Casts 1 Urine Mucus Rare Stool Occult Blood Blood Type O POSITIVE Antibody Screen Negative Crossmatch See Detail 10/02/17 10/02/17 10/03/17 17:25 22:45 00:22 WBC RBC Hgb Hct MCV MCH MCHC RDW Plt Count MPV Absolute Neuts (auto) Neutrophils % Lymphocytes % Monocytes % Eosinophils % Basophils % Nucleated RBC % PT with INR INR PTT (Actin FS) Sodium Potassium Chloride Carbon Dioxide Anion Gap BUN Creatinine Creat Clearance w eGFR POC Glucometer Random Glucose Lactic Acid 1.4 Calcium Total Bilirubin AST ALT Alkaline Phosphatase Troponin I Total Protein Albumin Urine Color Urine Appearance Urine pH Ur Specific [place] Urine Protein Urine Glucose (UA) Urine Ketones Urine Blood Urine Nitrite Urine Bilirubin Urine Urobilinogen Ur Leukocyte Esterase Urine WBC (Auto) Urine RBC (Auto) Granular Casts Urine Mucus Stool Occult Blood Positive Positive Blood Type Antibody Screen Crossmatch 10/03/17 10/03/17 10/03/17 06:30 06:30 12:47 WBC 9.2 7.6 RBC 2.64 L 2.53 L Hgb 8.2 L 7.6 L Hct 23.6 L 22.7 L MCV 89.4 89.9 MCH 31.1 30.1 MCHC 34.8 33.5 RDW 18.3 H 18.2 H Plt Count 259 263 MPV 8.0 7.7 Absolute Neuts (auto) 5.5 Neutrophils % 59.6 D Lymphocytes % 29.9 D Monocytes % 7.9 Eosinophils % 2.1 D Basophils % 0.5 Nucleated RBC % 0 PT with INR INR PTT (Actin FS) Sodium 145 Potassium 4.4 Chloride 109 H Carbon Dioxide 28 Anion Gap 8 BUN 50 H Creatinine 1.1 Creat Clearance w eGFR > 60 POC Glucometer Random Glucose 90 Lactic Acid Calcium 8.9 Total Bilirubin 1.0 AST 166 H D ALT 205 H D Alkaline Phosphatase 672 H Troponin I Total Protein 6.6 Albumin 2.9 L Urine Color Urine Appearance Urine pH Ur Specific [place] Urine Protein Urine Glucose (UA) Urine Ketones Urine Blood Urine Nitrite Urine Bilirubin Urine Urobilinogen Ur Leukocyte Esterase Urine WBC (Auto) Urine RBC (Auto) Granular Casts Urine Mucus Stool Occult Blood Blood Type Antibody Screen Crossmatch Active Medications Generic Name Dose Route Start Last Admin Trade Name Freq PRN Reason Stop Dose Admin Carbidopa/Levodopa 1 each 10/03/17 06:00 10/03/17 06:23 Sinemet 25/100 - PO 1 each TID MICAH Administration Escitalopram Oxalate 10 mg 10/04/17 10:00 Lexapro - PO DAILY MICAH Ceftriaxone Sodium 1 gm/ 50 mls @ 100 mls/hr 10/03/17 10:00 10/03/17 09:38 Dextrose IVPB 100 mls/hr DAILY MICAH Administration Protocol Sodium Chloride 1,000 mls @ 100 mls/hr 10/03/17 02:00 10/03/17 05:48 Normal Saline - IV 100 mls/hr ASDIR MICAH Administration Pantoprazole Sodium 80 mg/ 100 mls @ 10 mls/hr 10/03/17 06:00 10/03/17 09:37 Sodium Chloride IVPB 10 mls/hr Q10H MICAH Administration 8 MG/HR Lorazepam 1 mg 10/03/17 01:54 Ativan Injection - IVPUSH 10/04/17 01:53 Q6H PRN Seizures ASSESSMENT/PLAN: 71 y/o M w/ PMHx Parkinson's disease and subacute onset of recurring syncope p/ w 1 day h/o 4 falls, the last of which was witnessed and accompanied by urinary and darkly bloody fecal incontinence and 5 minute period of tonic-clonic activity #syncope -likely 2/2 UGI bleed -GI consult appreciated, plans for EGD once orthostatic/acutely syncopal condition is stabilized -transfuse if Hgb <7 -CT head and CXR no acute pathology -EKG benign, trops negative -monitor H/H -NPO -Protonix drip per GI #UTI -UA significant for blood and LE -cont ceftriaxone -f/u UCx #KATHY -Cr at baseline -IVF #questionable seizure -neurology consulted, neurogenic etiology unlikely -ativan PRN if recurrent seizure #HTN -hold d/t syncope and likely bleed -monitor VS, orthostatics #PD -cont sinemet #fall risk -precautions #FEN -NS @ 100 -monitor lytes -NPO #code -full #dispo -monitor on tele Visit type - Emergency Visit Emergency Visit: No - New Patient This patient is new to me today: Yes Date on this admission: 10/03/17 - Critical Care Critical Care patient: No
[2017-10-03 18:39] LABS: BASO % 0.6 % (0-2.0); EOS % 3.2 % (0-4.5); HEMATOCRIT 25.1 % (35.4-49); HEMOGLOBIN 8.6 GM/dL (11.7-16.9); LYMPH % 30.8 % (8-40); MCH 30.7 pg (25.7-33.7); MCHC 34.2 g/dl (32.0-35.9); MEAN CELL VOLUME 89.6 fl (80-96); MEAN PLT VOLUME 7.8 fl (7.5-11.1); MONO % 7.6 % (3.8-10.2); NEUT % 57.8 % (42.8-82.8); PLATELET COUNT 299 K/MM3 (134-434); RDW 18.7 % (11.9-15.9); WHITE BLOOD COUNT 8.1 K/mm3 (4.0-10.0)
[2017-10-03] MEDS ORDERED: PROPOFOL 20 ML ONE ×2 (18:58)
--- NOTE | 2017-10-03 20:01 | PN ---
Progress Note (short form) - Note Progress Note: GI Procedure NOte ( covering for Drs. Johnston/Meño) : Please see scanned EGD report (also placed into chart). 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 He also has GERD. Will check stool for HP. I informed Khari of the findings, the need to abstain from NSAIDs and of the need to have a repeat EGD in 3 months to assure ulcer healing and exclude gastric malignancy.
[2017-10-03] MEDS: DEXTROSE 5%-0.45% SALINE 1,000 ML IV SCH (20:10)
[2017-10-03] MEDS: MAG HYDROX/AL HYDROX/SIMETH 30 ML UNIT-DOSE CUP PO SCH (21:15)
[2017-10-04] MEDS: MAG HYDROX/AL HYDROX/SIMETH 30 ML UNIT-DOSE CUP PO SCH ×4 (01:08→17:13)
[2017-10-04] MEDS: PANTOPRAZOLE SODIUM 80 MG in SODIUM CHLORIDE 100 ML IVPB SCH ×4 (02:30→22:13)
[2017-10-04] MEDS: CARBIDOPA/LEVODOPA 25/100 TABLET (FP) PO SCH ×3 (05:56→22:07)
[2017-10-04 08:08] LABS: BASO % 0.5 % (0-2.0); EOS % 2.9 % (0-4.5); HEMATOCRIT 18.9 % (35.4-49); LYMPH % 20.9 % (8-40); MCH 31.7 pg (25.7-33.7); MCHC 34.9 g/dl (32.0-35.9); MEAN CELL VOLUME 90.6 fl (80-96); MEAN PLT VOLUME 8.1 fl (7.5-11.1); MONO % 7.2 % (3.8-10.2); NEUT % 68.5 % (42.8-82.8); PLATELET COUNT 293 K/MM3 (134-434); RBC 2.09 M/mm3 (4.00-5.60); RDW 18.3 % (11.9-15.9); RETICULOCYTES 2.48 % (0.5-1.5)
[2017-10-04 08:37] LABS: HEMOGLOBIN 6.6 GM/dL (11.7-16.9)
--- NOTE | 2017-10-04 09:18 | PN ---
Physical Exam: SUBJECTIVE: Patient seen and examined at bedside. No complaints. Reports no bowel movements, bloody or otherwise. Underwent EGD last night. Hgb 6.6 this morning, given PRBCs. OBJECTIVE: Vital Signs Period Temp Pulse Resp BP Sys/Zheng Pulse Ox Last 24 Hr 98.0 F-98.9 F 71-90 16-18 110-164/64-89 96-100 GENERAL: Undernourished patient with temporal wasting, oriented x 3, subject to psychomotor retardation and/or bradykinesia. HEAD: Normal with no signs of trauma. EYES: PERRLA, EOMI, sclera anicteric, conjunctiva clear ENT: moist mucous membranes NECK: Trachea midline, full range of motion, supple, no JVD, no cervical LAD LUNGS: Breath sounds equal, clear to auscultation bilaterally, no wheezes, no crackles, no accessory muscle use HEART: S1S2 no m/r/g, premature beats every 5 or 6 cardiac cycles ABDOMEN: Soft, nontender, nondistended, normoactive bowel sounds, no guarding, no rebound, no hepatosplenomegaly, no masses. EXTREMITIES: 2+ pulses, warm, well-perfused, no edema. NEUROLOGICAL: CNII-XII grossly intact apart from mild facial droop on right. Pronator drift b/l. Motor strength 5/5 x 4 extremities, pronounced bradykinesia , no tremor, mild rigidity in UE b/l. Sensorium grossly intact. Could not comply with instructions for cerebellar exam. PSYCH: Affect moderately blunted Laboratory Results - last 24 hr 10/02/17 10/03/17 10/03/17 17:22 12:47 17:30 WBC 7.6 8.1 RBC 2.53 L 2.80 L Hgb 7.6 L 8.6 L Hct 22.7 L 25.1 L MCV 89.9 89.6 MCH 30.1 30.7 MCHC 33.5 34.2 RDW 18.2 H 18.7 H Plt Count 263 299 MPV 7.7 7.8 Absolute Neuts (auto) 4.7 Neutrophils % 57.8 Lymphocytes % 30.8 Monocytes % 7.6 Eosinophils % 3.2 Basophils % 0.6 Nucleated RBC % 0 Retic Count Stool H. pylori Ag Crossmatch See Detail 10/04/17 10/04/17 05:30 05:30 WBC 11.0 H RBC 2.09 L Hgb 6.6 L* Hct 18.9 L D MCV 90.6 MCH 31.7 MCHC 34.9 RDW 18.3 H Plt Count 293 MPV 8.1 Absolute Neuts (auto) 7.5 Neutrophils % 68.5 Lymphocytes % 20.9 D Monocytes % 7.2 Eosinophils % 2.9 Basophils % 0.5 Nucleated RBC % 0 Retic Count 2.48 H Stool H. pylori Ag Cancelled Crossmatch Active Medications Generic Name Dose Route Start Last Admin Trade Name Enmanuel PRN Reason Stop Dose Admin Al Hydroxide/Mg Hydroxide 30 ml 10/03/17 20:15 10/04/17 05:55 Mylanta Oral Suspension - PO Not Given Q6HPO MIACH Carbidopa/Levodopa 1 each 10/03/17 06:00 10/04/17 05:56 Sinemet 25/100 - PO 1 each TID MICAH Administration Escitalopram Oxalate 10 mg 10/04/17 10:00 Lexapro - PO DAILY MICAH Ceftriaxone Sodium 1 gm/ 50 mls @ 100 mls/hr 10/03/17 10:00 10/03/17 09:38 Dextrose IVPB 100 mls/hr DAILY MICAH Administration Protocol Pantoprazole Sodium 80 mg/ 100 mls @ 10 mls/hr 10/03/17 06:00 10/04/17 02:30 Sodium Chloride IVPB 10 mls/hr Q10H MICAH Administration 8 MG/HR Dextrose/Sodium Chloride 1,000 mls @ 75 mls/hr 10/03/17 20:15 10/03/17 20:10 D5-1/2ns - IV 0 mls ASDIR MICAH Administration ASSESSMENT/PLAN: 71 y/o M w/ PMHx Parkinson's disease and subacute onset of recurring syncope p/ w 1 day h/o 4 falls, the last of which was witnessed and accompanied by urinary and darkly bloody fecal incontinence and 5 minute period of tonic-clonic activity #syncope -likely 2/2 UGI bleed -GI consult appreciated, plans for EGD once orthostatic/acutely syncopal condition is stabilized -morning Hgb 6.6, improved to 10.5 after 1 unit PRBCs, CBC to be redone at 18 :00 given likely error -NPO given possible need for urgent scope -transfuse if Hgb < 7.5 -EGD: multiple NSAID-induced ulcers, repeat EGD in 3 months -CT head and CXR no acute pathology -EKG benign, trops negative -monitor H/H -NPO -Protonix drip per GI #UTI -UA significant for blood and LE -cont ceftriaxone -f/u UCx #KATHY -Cr at baseline -IVF #questionable seizure -neurology consulted, neurogenic etiology unlikely -ativan PRN if recurrent seizure #HTN -hold d/t syncope and likely bleed -monitor VS, orthostatics #PD -cont sinemet #fall risk -precautions #FEN -NS @ 100 -monitor lytes -NPO #code -full #dispo -monitor on tele Visit type - Emergency Visit Emergency Visit: No - New Patient This patient is new to me today: No - Critical Care Critical Care patient: No
[2017-10-04 09:32] LABS: ALBUMIN 2.7 g/dl (3.4-5.0); ANION GAP 9 (8-16); BILIRUBIN,TOTAL 0.5 mg/dL (0.2-1.0); BLOOD UREA NITROGEN 27 mg/dL (7-18); CALCIUM 8.9 mg/dL (8.5-10.1); CHLORIDE 106 mmol/L (98-107); CO2 28 mmol/L (21-32); GLUCOSE,RANDOM 96 mg/dL (74-106); SGPT/ALT 73 U/L (12-78); SODIUM 143 mmol/L (136-145); TOT PROT 6.4 g/dl (6.4-8.2)
[2017-10-04 09:34] LABS: ALK PHOS 586 U/L (45-117)
[2017-10-04 09:35] LABS: POTASSIUM 4.3 mmol/L (3.5-5.1); SGOT/AST 111 U/L (15-37)
[2017-10-04] MEDS ORDERED: cefTRIAXone SODIUM 1 GM VIAL ONE (09:44)
[2017-10-04] MEDS ORDERED: DEXTROSE 5%-WATER - 50 ML IVPB ONE (09:45)
[2017-10-04] MEDS: CEFTRIAXONE 1 GM in DEXTROSE 5%-WATER - 50 ML IVPB SCH (09:47)
[2017-10-04] MEDS: ESCITALOPRAM OXALATE 10 MG TABLET (FP) PO SCH (09:47)
--- NOTE | 2017-10-04 11:27 | PN ---
Teaching Attending Note Name of Resident: Primo Taylor ATTENDING PHYSICIAN STATEMENT I saw and evaluated the patient. I reviewed the resident's note and discussed the case with the resident. I agree with the resident's findings and plan as documented. SUBJECTIVE: No fever or chills. No abd pain. no N/V . OBJECTIVE: NAD, awake , alert ,and cooperative . flat affect CV: regularly irreg . no MRG Lungs: CTAB Abd: soft, NT, ND ,NL BS . Ext: no edema or erythema ASSESSMENT AND PLAN: 71 y/o gentleman with h/o Parkinsonism's, HTN and recurrent falls who presented from home with a syncopal episode in the shower accompanied by melena nad BRBPR 1- Syncopal episode: likely due to orthostatic hypotension from acute blood loss anemia and parkinson's /parkinson's meds. - treat anemia - IVF - hold antihypertensive meds a stella sBP on lower side this am and HB dropped . ? active bleed - Cont tele - repeat orthostatic VS in am after fixing his anemia 2- Acute blood loss anemia due to NSAIDs induced gastric ulcers. s/p EGD yesterday - Hb dropped this am , but there is no melena , N/V or epigastric pain. - NPO in case he shows signs of active bleed and needs Urgent EGD - transfuse 2 units of RBCs - repeat H&H after then - f/u with GI - cont PPI gtt 3- h/o HTN: hold anti hypertensive and monitor BP . in no further bleed , will resume 4- Parkinson's : cont Carbi/levo 5- UTI: cont ceftriaxone. follow urine cx. HLOC
--- NOTE | 2017-10-04 11:40 | PN ---
GI Progress Note Subjective: GI NOte ( covering Dr Wilder): NO melena or hematemesis overnight yet Hb has dropped to 6.6 so 2 more units of PRBCs being given. Will keep on liquids as may need repeat emergent EGD. The bleeding may alternatively be distal to the ligament of Treitz . Will also check for hemolysis. The etiology for abnormal LFTs remains unclear. Liver and GB sonogram are unremarkable. - Objective Vital Signs: Vital Signs Temperature 98.0 F 10/04/17 10:00 Pulse Rate 75 10/04/17 10:00 Respiratory Rate 18 10/04/17 10:00 Blood Pressure 101/60 10/04/17 10:00 O2 Sat by Pulse Oximetry (%) 100 10/04/17 09:00 Laboratory Tests 10/03/17 10/03/17 10/04/17 06:30 17:30 05:30 Hgb 8.6 L 6.6 L* Retic Count 2.48 H Ferritin Total Bilirubin 1.0 AST 166 H D ALT 205 H D Alkaline Phosphatase 672 H 10/04/17 05:30 Hgb Retic Count Ferritin 332.0 H Total Bilirubin 0.5 AST 111 H D ALT 73 D Alkaline Phosphatase 586 H D Constitutional: Calm ...Auscultate: Yes: Normoactive Bowel Sounds ...Palpate: Yes: Soft, Other (nontender) Labs: CBC, BMP 10/04/17 05:30 10/04/17 05:30 INR, PTT INR 1.15 (0.82-1.09) H 10/02/17 17:22 Problem List - Problems (1) Gastric cardia ulcer Assessment/Plan: Not clear whether the bleeding has recurred or not and need to follow carefully. Will repeat CBC later today as is still being transfused. He may need a CTA or bleeding scan. Continue PPI drip.Melena may be trapped by fecal impaction that is common with Parkinson's Disease. 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
[2017-10-04 15:56] LABS: BASO % 0.6 % (0-2.0); EOS % 2.4 % (0-4.5); HEMOGLOBIN 10.5 GM/dL (11.7-16.9); MCH 30.9 pg (25.7-33.7); MCHC 34.1 g/dl (32.0-35.9); MEAN CELL VOLUME 90.8 fl (80-96); MONO % 6.5 % (3.8-10.2); NEUT % 65.5 % (42.8-82.8); RBC 3.41 M/mm3 (4.00-5.60); RDW 18.1 % (11.9-15.9); WHITE BLOOD COUNT 10.1 K/mm3 (4.0-10.0)
[2017-10-04 17:28] LABS: PLATELET COUNT 275 K/MM3 (134-434); PLATELET ESTIMATE ADEQUATE
[2017-10-04 18:50] LABS: HEMATOCRIT 27.7 % (35.4-49); HEMOGLOBIN 9.3 GM/dL (11.7-16.9); MCH 30.5 pg (25.7-33.7); MCHC 33.5 g/dl (32.0-35.9); MEAN CELL VOLUME 91.1 fl (80-96); MEAN PLT VOLUME 7.9 fl (7.5-11.1); PLATELET COUNT 267 K/MM3 (134-434); RBC 3.04 M/mm3 (4.00-5.60); RDW 18.2 % (11.9-15.9); WHITE BLOOD COUNT 7.7 K/mm3 (4.0-10.0)
[2017-10-04] MEDS: DEXTROSE 5%-0.45% SALINE 1,000 ML IV SCH (21:14)
[2017-10-04] MEDS: POLYETHYLENE GLYCOL 3350 119 GM BTL PO SCH (22:07)
[2017-10-05] MEDS: MAG HYDROX/AL HYDROX/SIMETH 30 ML UNIT-DOSE CUP PO SCH ×5 (00:48→23:46)
[2017-10-05] MEDS: CARBIDOPA/LEVODOPA 25/100 TABLET (FP) PO SCH ×3 (05:45→22:24)
[2017-10-05 06:46] LABS: HEMOGLOBIN 9.2 GM/dL (11.7-16.9); MCH 31.1 pg (25.7-33.7); MCHC 34.2 g/dl (32.0-35.9); MEAN CELL VOLUME 90.8 fl (80-96); MEAN PLT VOLUME 7.8 fl (7.5-11.1); PLATELET COUNT 261 K/MM3 (134-434); RBC 2.97 M/mm3 (4.00-5.60); RDW 18.5 % (11.9-15.9); WHITE BLOOD COUNT 7.2 K/mm3 (4.0-10.0)
[2017-10-05 07:23] LABS: ALBUMIN 2.8 g/dl (3.4-5.0)
[2017-10-05 07:25] LABS: BILIRUBIN,DIRECT 0.4 mg/dL (0.0-0.2); BILIRUBIN,TOTAL 0.6 mg/dL (0.2-1.0); CHLORIDE 106 mmol/L (98-107); SODIUM 144 mmol/L (136-145); TOT PROT 6.1 g/dl (6.4-8.2)
[2017-10-05 07:29] LABS: INR 1.13 (0.82-1.09); PROTHROMBIN TIME (PATIENT) 12.8 SEC (9.7-13.0)
[2017-10-05 07:31] LABS: ANION GAP 7 (8-16); BLOOD UREA NITROGEN 15 mg/dL (7-18); CALCIUM 8.7 mg/dL (8.5-10.1); CO2 31 mmol/L (21-32); GLUCOSE,RANDOM 93 mg/dL (74-106); LDH 177 U/L (87-241)
[2017-10-05] MEDS ORDERED: cefTRIAXone SODIUM 1 GM VIAL ONE (09:26)
[2017-10-05] MEDS ORDERED: DEXTROSE 5%-WATER - 50 ML IVPB ONE (09:27)
[2017-10-05] MEDS: ESCITALOPRAM OXALATE 10 MG TABLET (FP) PO SCH (09:28)
[2017-10-05] MEDS: POLYETHYLENE GLYCOL 3350 119 GM BTL PO SCH ×2 (09:28→22:24)
[2017-10-05] MEDS: CEFTRIAXONE 1 GM in DEXTROSE 5%-WATER - 50 ML IVPB SCH (09:28)
[2017-10-05] MEDS: SENNOSIDES/DOCUSATE COMBO (SENNA PLUS) TABLET (UD) PO SCH ×2 (10:55→22:24)
[2017-10-05] MEDS: PANTOPRAZOLE SODIUM 80 MG in SODIUM CHLORIDE 100 ML IVPB SCH ×3 (12:17→22:26)
--- NOTE | 2017-10-05 16:54 | PN ---
Progress Note (short form) - Note Progress Note: Subjective: no fever or chills . no abd pain , constipated Objective: Vital Signs: Last Vital Signs Temp Pulse Resp BP Pulse Ox 98.2 F 77 20 115/62 97 10/05/17 14:00 10/05/17 14:00 10/05/17 14:00 10/05/17 14:00 10/05/17 10:00 Laboratory Results - last 24 hr 10/04/17 10/04/17 10/05/17 15:05 18:30 05:30 WBC 7.7 7.2 RBC 3.04 L 2.97 L Hgb 9.3 L 9.2 L Hct 27.7 L 27.0 L MCV 91.1 90.8 MCH 30.5 31.1 MCHC 33.5 34.2 RDW 18.2 H 18.5 H Plt Count 275 267 261 MPV No Result Required. 7.9 7.8 Platelet Estimate Adequate Platelet Comment No clumping noted PT with INR INR Sodium Potassium Chloride Carbon Dioxide Anion Gap BUN Creatinine Creat Clearance w eGFR Random Glucose Calcium Total Bilirubin Direct Bilirubin GGT AST ALT Alkaline Phosphatase LD Total Total Protein Albumin 10/05/17 10/05/17 10/05/17 05:30 05:30 05:30 WBC RBC Hgb Hct MCV MCH MCHC RDW Plt Count MPV Platelet Estimate Platelet Comment PT with INR 12.80 INR 1.13 Sodium 144 Potassium 4.0 Chloride 106 Carbon Dioxide 31 Anion Gap 7 L BUN 15 Creatinine 1.0 Creat Clearance w eGFR > 60 Random Glucose 93 Calcium 8.7 Total Bilirubin 0.6 Direct Bilirubin 0.4 H GGT 960 H AST 73 H D ALT 39 D Alkaline Phosphatase 606 H D LD Total 177 Total Protein 6.1 L Albumin 2.8 L Physical Exam: NAD, awake , alert ,and cooperative . flat affect CV: regularly irreg . no MRG Lungs: CTAB Abd: soft, NT, ND ,NL BS . Ext: no edema or erythema ASSESSMENT AND PLAN: 71 y/o gentleman with h/o Parkinsonism's, HTN and recurrent falls who presented from home with a syncopal episode in the shower accompanied by melena nad BRBPR 1- Syncopal episode: due to orthostatic hypotension - repeat orthostatics - might dc IVF tomorrow 2- Acute blood loss anemia due to NSAIDs induced gastric ulcers. s/p EGD - received one unit yesterday for HB of 6.6 which increaed it to 10.5. ? 6.6 was lab error - no signs of recurrent bleed. - cont PPI gtt , probably can change to PO PPI tomorrow 3- h/o HTN: NL BP off anti-hypertensive meds. Monitor 4- Parkinson's : cont Carbi/levo 5- UTI: day 4 /7 of ceftriaxone. cx reviewed. switch to po levaquin for 3 more days HLOC PT eval. possibly will need SNF. he will think about it Visit type - Emergency Visit Emergency Visit: Yes ED Registration Date: 10/02/17 Care time: The patient presented to the Emergency Department on the above date and was hospitalized for further evaluation of their emergent condition. - New Patient This patient is new to me today: No - Critical Care Critical Care patient: No
[2017-10-05] MEDS: DEXTROSE 5%-0.45% SALINE 1,000 ML IV SCH (21:30)
[2017-10-06] MEDS: CARBIDOPA/LEVODOPA 25/100 TABLET (FP) PO SCH ×3 (05:52→21:32)
[2017-10-06] MEDS: MAG HYDROX/AL HYDROX/SIMETH 30 ML UNIT-DOSE CUP PO SCH ×2 (05:52→12:30)
[2017-10-06 06:13] LABS: HEMATOCRIT 26.5 % (35.4-49); HEMOGLOBIN 9.2 GM/dL (11.7-16.9); MCH 31.6 pg (25.7-33.7); MCHC 34.7 g/dl (32.0-35.9); MEAN CELL VOLUME 90.9 fl (80-96); MEAN PLT VOLUME 7.6 fl (7.5-11.1); PLATELET COUNT 267 K/MM3 (134-434); RBC 2.91 M/mm3 (4.00-5.60); RDW 17.7 % (11.9-15.9); WHITE BLOOD COUNT 8.5 K/mm3 (4.0-10.0)
--- NOTE | 2017-10-06 09:25 | PN ---
Progress Note (short form) - Note Progress Note: Neurology HISTORY OF PRESENT ILLNESS: 71 y/o male with PMH HTN, Parkinson's presents after reported multiple falls. Reportedly has history of falls. Per notes, mention of incontinence and possibly tonic clonic activity. Patient denies history of seizures. Of note, anemic on labs and required RBC transfusion. CT head reivewed and without acute changes. Stable over the weekend, does know he's in the hospital. Does appear to have increased energy and more interactive today. Parkinson's medications have been continued. No neurologic events. Active Medications Al Hydroxide/Mg Hydroxide (Mylanta Oral Suspension -) 30 ml PO Q6HPO [facility] Last Admin: 10/06/17 05:52 Dose: 30 ml Carbidopa/Levodopa (Sinemet 25/100 -) 1 each PO TID [facility] Last Admin: 10/06/17 05:52 Dose: 1 each Escitalopram Oxalate (Lexapro -) 10 mg PO DAILY [facility] Last Admin: 10/05/17 09:28 Dose: 10 mg Pantoprazole Sodium 80 mg/ (Sodium Chloride) 100 mls @ 10 mls/hr IVPB Q10H [facility] Last Admin: 10/05/17 22:26 Dose: 10 mls/hr Dextrose/Sodium Chloride (D5-1/2ns -) 1,000 mls @ 75 mls/hr IV ASDIR [facility] Last Admin: 10/05/17 21:30 Dose: 75 mls/hr Levofloxacin (Levaquin -) 500 mg PO DAILY [facility] Stop: 10/08/17 10:01 Polyethylene Glycol (Miralax (For Daily Use) -) 17 gm PO BID [facility] Last Admin: 10/05/17 22:24 Dose: 17 gm Senna/Docusate Sodium (Pericolace -) 1 tablet PO BID [facility] Last Admin: 10/05/17 22:24 Dose: 1 tablet PHYSICAL EXAMINATION Vital Signs Period Temp Pulse Resp BP Sys/Zheng Pulse Ox Last 24 Hr 97.8 F-98.8 F 70-86 18-20 92-160/57-97 97 GENERAL: Awake, confused, slow to respond, in no acute distress. HEAD: Normal with no signs of trauma. EYES: Pupils equal, round and reactive to light, extraocular movements intact, sclera anicteric. EARS, NOSE, THROAT: Oropharynx clear without exudates. Moist mucous membranes. NECK: Normal range of motion, supple without JVD LUNGS: Breath sounds equal, clear to auscultation bilaterally. No wheezes, and no crackles. HEART: Regular rate and rhythm, normal S1 and S2 without murmur, rub or gallop. ABDOMEN: Soft, nontender, not distended, normoactive bowel sounds, no guarding, no rebound, no masses. No hepatomegaly or splenomegaly. RECTAL: No external hemorrhoids noted. Rectal vault with trace amounts dark colored, tarry stool. FOBT was positive. MUSCULOSKELETAL: Normal range of motion at all joints. No bony deformities or tenderness. EXTREMITIES: 2+ pulses, warm, well-perfused. No peripheral edema. NEUROLOGICAL: No focal defecits. Bradykinesia noted, no tremor, +cogwheeling, sensory intact, grossly intact strenght, gait deferred PSYCHIATRIC: Cooperative. CBCD WBC 8.5 K/mm3 (4.0-10.0) 10/06/17 05:30 RBC 2.91 M/mm3 (4.00-5.60) L 10/06/17 05:30 Hgb 9.2 GM/dL (11.7-16.9) L 10/06/17 05:30 Hct 26.5 % (35.4-49) L 10/06/17 05:30 MCV 90.9 fl (80-96) 10/06/17 05:30 MCHC 34.7 g/dl (32.0-35.9) 10/06/17 05:30 RDW 17.7 % (11.9-15.9) H 10/06/17 05:30 Plt Count 267 K/MM3 (134-434) 10/06/17 05:30 MPV 7.6 fl (7.5-11.1) 10/06/17 05:30 CMP Sodium 144 mmol/L (136-145) 10/05/17 05:30 Potassium 4.0 mmol/L (3.5-5.1) 10/05/17 05:30 Chloride 106 mmol/L (98-107) 10/05/17 05:30 Carbon Dioxide 31 mmol/L (21-32) 10/05/17 05:30 Anion Gap 7 (8-16) L 10/05/17 05:30 BUN 15 mg/dL (7-18) 10/05/17 05:30 Creatinine 1.0 mg/dL (0.7-1.3) 10/05/17 05:30 Creat Clearance w eGFR > 60 (>60) 10/05/17 05:30 Calcium 8.7 mg/dL (8.5-10.1) 10/05/17 05:30 Total Bilirubin 0.6 mg/dL (0.2-1.0) 10/05/17 05:30 AST 73 U/L (15-37) H D 10/05/17 05:30 ALT 39 U/L (12-78) D 10/05/17 05:30 Alkaline Phosphatase 606 U/L (45-117) H D 10/05/17 05:30 Total Protein 6.1 g/dl (6.4-8.2) L 10/05/17 05:30 Albumin 2.8 g/dl (3.4-5.0) L 10/05/17 05:30 ASSESSMENT/PLAN: 71 y/o male with PMH HTN, Parkinson's presents after reported multiple falls. Reportedly has history of falls. Per notes, mention of incontinence and possibly tonic clonic activity. Patient denies history of seizures. Of note, anemic on labs and required RBC transfusion. CT head reivewed and without acute changes. Likely 2/2 anemia, continue monitoring CBC. Transfuse as needed. Check orthostatics, maintain hydration, deconditioning improving with hydration and ongoing care. No history of seizures, would not start AED at this time. Remains on Levaquin, Abx as needed. Monitor BP, maintain normotensive range. Can continue Sinemet three times a day for Parkinson's. PT recommended, possibly for rehab placement. Fall precautions.
[2017-10-06] MEDS: POLYETHYLENE GLYCOL 3350 119 GM BTL PO SCH ×2 (10:53→21:39)
[2017-10-06] MEDS: SENNOSIDES/DOCUSATE COMBO (SENNA PLUS) TABLET (UD) PO SCH ×2 (10:53→21:32)
[2017-10-06] MEDS: ESCITALOPRAM OXALATE 10 MG TABLET (FP) PO SCH (10:53)
--- NOTE | 2017-10-06 13:19 | PN ---
Teaching Attending Note Name of Resident: Primo Taylor ATTENDING PHYSICIAN STATEMENT I saw and evaluated the patient. I reviewed the resident's note and discussed the case with the resident. I agree with the resident's findings and plan as documented. SUBJECTIVE: No fever or chills, No events over night . No abd pain. no BMs OBJECTIVE: NAD, awake , alert ,and cooperative . flat affect CV: regularly irreg . no MRG Lungs: CTAB Abd: soft, NT, ND ,NL BS . Ext: no edema or erythema ASSESSMENT AND PLAN: 71 y/o gentleman with h/o Parkinsonism's, HTN and recurrent falls who presented from home with a syncopal episode in the shower accompanied by melena nad BRBPR 1- Syncopal episode: due to orthostatic hypotension - repeat orthostatics show no orthostatic drop - DC IVF 2- Acute blood loss anemia due to NSAIDs induced gastric ulcers. s/p EGD - Hb remians stable s/p RBC transfusion , no signs of active bleed. No need for further w/u . Need repeat EGD in 3 months - repeat HB this evening - change PPI to PO 3- h/o HTN: hypertensive now . resume home norvasc 4- Parkinson's : cont Carbi/levo 5- UTI: day 5 /7 of Abx . cont levaquin HLOC PT eval pending. pt is medically ready for Dc . he refuses SNF, but will d/w his . CM updated.
[2017-10-06] MEDS ORDERED: SODIUM CHLORIDE 1,000 ML IV SCH ×2 (13:30→16:45)
[2017-10-06 15:09] LABS: BASO % 0.6 % (0-2.0); EOS % 5.2 % (0-4.5); HEMATOCRIT 26.4 % (35.4-49); HEMOGLOBIN 8.9 GM/dL (11.7-16.9); MCHC 33.7 g/dl (32.0-35.9); MEAN PLT VOLUME 7.8 fl (7.5-11.1); MONO % 8.8 % (3.8-10.2); NEUT % 62.4 % (42.8-82.8); PLATELET COUNT 291 K/MM3 (134-434); RBC 2.87 M/mm3 (4.00-5.60); RDW 17.7 % (11.9-15.9); WHITE BLOOD COUNT 6.4 K/mm3 (4.0-10.0)
--- NOTE | 2017-10-06 15:27 | PN ---
Physical Exam: SUBJECTIVE: Patient seen and examined at bedside. No complaints. Reports no bowel movements, bloody or otherwise. OBJECTIVE: Vital Signs Period Temp Pulse Resp BP Sys/Zheng Pulse Ox Last 24 Hr 97.6 F-98.8 F 70-93 16-20 92-160/54-97 98 GENERAL: Undernourished patient with temporal wasting, oriented x 3, subject to psychomotor retardation and/or bradykinesia HEAD: Normal with no signs of trauma EYES: PERRLA, EOMI, sclera anicteric, conjunctiva clear ENT: moist mucous membranes NECK: Trachea midline, full range of motion, supple, no JVD, no cervical LAD LUNGS: Breath sounds equal, clear to auscultation bilaterally, no wheezes, no crackles, no accessory muscle use HEART: S1S2 no m/r/g, regularly irregularly with premature beats ABDOMEN: Soft, nontender, nondistended, normoactive bowel sounds, no guarding, no rebound, no hepatosplenomegaly, no masses EXTREMITIES: 2+ pulses NEUROLOGICAL: CNII-XII grossly intact apart from mild facial droop on right. Pronator drift b/l. Motor strength 5/5 x 4 extremities, pronounced bradykinesia , no tremor, mild rigidity in UE b/l. Sensorium grossly intact. PSYCH: Flat affect Laboratory Results - last 24 hr 10/02/17 10/06/17 10/06/17 17:22 05:30 14:30 WBC 8.5 6.4 RBC 2.91 L 2.87 L Hgb 9.2 L 8.9 L Hct 26.5 L 26.4 L MCV 90.9 92.0 MCH 31.6 31.0 MCHC 34.7 33.7 RDW 17.7 H 17.7 H Plt Count 267 291 MPV 7.6 7.8 Absolute Neuts (auto) 4.0 Neutrophils % 62.4 Lymphocytes % 23.0 Monocytes % 8.8 Eosinophils % 5.2 H D Basophils % 0.6 Nucleated RBC % 0 Blood Type O POSITIVE Antibody Screen Negative Crossmatch See Detail Active Medications Generic Name Dose Route Start Last Admin Trade Name Freq PRN Reason Stop Dose Admin Al Hydroxide/Mg Hydroxide 30 ml 10/03/17 20:15 10/06/17 12:30 Mylanta Oral Suspension - PO 30 ml Q6HPO [facility] Administration Carbidopa/Levodopa 1 each 10/03/17 06:00 10/06/17 15:00 Sinemet 25/100 - PO 1 each TID [facility] Administration Escitalopram Oxalate 10 mg 10/04/17 10:00 10/06/17 10:53 Lexapro - PO 10 mg DAILY [facility] Administration Levofloxacin 500 mg 10/06/17 10:00 10/06/17 10:53 Levaquin - PO 10/08/17 10:01 500 mg DAILY [facility] Administration Pantoprazole Sodium 40 mg 10/06/17 22:00 Protonix - PO BID [facility] Polyethylene Glycol 17 gm 10/04/17 22:00 10/06/17 10:53 Miralax (For Daily Use) - PO 17 gm BID [facility] Administration Senna/Docusate Sodium 1 tablet 10/05/17 10:30 10/06/17 10:53 Pericolace - PO 1 tablet BID [facility] Administration ASSESSMENT/PLAN: 71 y/o M w/ PMHx Parkinson's disease and subacute onset of recurring syncope p/ w 1 day h/o 4 falls, the last of which was witnessed and accompanied by urinary and darkly bloody fecal incontinence and 5 minute period of tonic-clonic activity #syncope -continues to be orthostatic, did not syncopize on trial of standing but aborted trial d/t severe weakness/dysequilibrium -H/H stable s/p 1 unit transfusion -transfuse if Hgb < 7.5 -EGD: multiple NSAID-induced ulcers, repeat EGD in 3 months -CT head and CXR no acute pathology -EKG benign, trops negative -monitor H/H -Protonix drip per GI #UTI -Pseudomonas on UCx -levaquin 500 PO #KATHY -Cr at baseline #questionable seizure -neurology consulted, neurogenic etiology unlikely -ativan PRN if recurrent seizure #HTN -hold d/t syncope and likely bleed -monitor VS, orthostatics #PD -cont sinemet #fall risk -precautions #FEN -no fluids -monitor lytes -regular diet #code -full #dispo -monitor on tele, hope to d/c to SNF but Pt refuses thus far Visit type - Emergency Visit Emergency Visit: No - New Patient This patient is new to me today: No - Critical Care Critical Care patient: No
[2017-10-06] MEDS: PANTOPRAZOLE 40 MG TABLET (FP) PO SCH (21:32)
[2017-10-07] MEDS: MAG HYDROX/AL HYDROX/SIMETH 30 ML UNIT-DOSE CUP PO SCH ×6 (00:35→21:29)
[2017-10-07] MEDS: CARBIDOPA/LEVODOPA 25/100 TABLET (FP) PO SCH ×3 (03:00→21:20)
--- NOTE | 2017-10-07 08:58 | PN ---
Progress Note (short form) - Note Progress Note: Neurology HISTORY OF PRESENT ILLNESS: 71 y/o male with PMH HTN, Parkinson's presents after reported multiple falls. Reportedly has history of falls. Per notes, mention of incontinence and possibly tonic clonic activity. Patient denies history of seizures. Of note, anemic on labs and required RBC transfusion. CT head reivewed and without acute changes. Stable over the weekend, more somnolent this AM but arousable. Discussed with nurse and will continue to monitor. Active Medications Al Hydroxide/Mg Hydroxide (Mylanta Oral Suspension -) 30 ml PO Q6HPO [facility] Last Admin: 10/07/17 06:52 Dose: 30 ml Carbidopa/Levodopa (Sinemet 25/100 -) 1 each PO TID [facility] Last Admin: 10/07/17 06:53 Dose: 1 each Escitalopram Oxalate (Lexapro -) 10 mg PO DAILY [facility] Last Admin: 10/06/17 10:53 Dose: 10 mg Sodium Chloride (Normal Saline -) 1,000 mls @ 75 mls/hr IV ASDIR [facility] Last Admin: 10/06/17 17:48 Dose: 75 mls/hr Levofloxacin (Levaquin -) 500 mg PO DAILY [facility] Stop: 10/08/17 10:01 Last Admin: 10/06/17 10:53 Dose: 500 mg Pantoprazole Sodium (Protonix -) 40 mg PO BID [facility] Last Admin: 10/06/17 21:32 Dose: 40 mg Polyethylene Glycol (Miralax (For Daily Use) -) 17 gm PO BID [facility] Last Admin: 10/06/17 21:39 Dose: 17 gm Senna/Docusate Sodium (Pericolace -) 1 tablet PO BID [facility] Last Admin: 10/06/17 21:32 Dose: 1 tablet PHYSICAL EXAMINATION Vital Signs Temperature 97.8 F 10/07/17 05:00 Pulse Rate 84 10/07/17 05:00 Respiratory Rate 20 10/07/17 05:00 Blood Pressure 154/92 10/07/17 05:00 O2 Sat by Pulse Oximetry (%) 99 10/06/17 21:00 GENERAL: Somnolent but arousable, followed simple commands HEAD: Normal with no signs of trauma. EYES: Pupils equal, round and reactive to light, extraocular movements intact, sclera anicteric. EARS, NOSE, THROAT: Oropharynx clear without exudates. Moist mucous membranes. NECK: Normal range of motion, supple without JVD LUNGS: Breath sounds equal, clear to auscultation bilaterally. No wheezes, and no crackles. HEART: Regular rate and rhythm, normal S1 and S2 without murmur, rub or gallop. ABDOMEN: Soft, nontender, not distended, normoactive bowel sounds, no guarding, no rebound, no masses. No hepatomegaly or splenomegaly. RECTAL: No external hemorrhoids noted. Rectal vault with trace amounts dark colored, tarry stool. FOBT was positive. MUSCULOSKELETAL: Normal range of motion at all joints. No bony deformities or tenderness. EXTREMITIES: 2+ pulses, warm, well-perfused. No peripheral edema. NEUROLOGICAL: No focal defecits. Bradykinesia noted, no tremor, +cogwheeling, sensory intact, grossly intact strenght, gait deferred PSYCHIATRIC: Cooperative. CBCD WBC 6.4 K/mm3 (4.0-10.0) 10/06/17 14:30 RBC 2.87 M/mm3 (4.00-5.60) L 10/06/17 14:30 Hgb 8.9 GM/dL (11.7-16.9) L 10/06/17 14:30 Hct 26.4 % (35.4-49) L 10/06/17 14:30 MCV 92.0 fl (80-96) 10/06/17 14:30 MCHC 33.7 g/dl (32.0-35.9) 10/06/17 14:30 RDW 17.7 % (11.9-15.9) H 10/06/17 14:30 Plt Count 291 K/MM3 (134-434) 10/06/17 14:30 MPV 7.8 fl (7.5-11.1) 10/06/17 14:30 CMP Sodium 144 mmol/L (136-145) 10/05/17 05:30 Potassium 4.0 mmol/L (3.5-5.1) 10/05/17 05:30 Chloride 106 mmol/L (98-107) 10/05/17 05:30 Carbon Dioxide 31 mmol/L (21-32) 10/05/17 05:30 Anion Gap 7 (8-16) L 10/05/17 05:30 BUN 15 mg/dL (7-18) 10/05/17 05:30 Creatinine 1.0 mg/dL (0.7-1.3) 10/05/17 05:30 Creat Clearance w eGFR > 60 (>60) 10/05/17 05:30 Calcium 8.7 mg/dL (8.5-10.1) 10/05/17 05:30 Total Bilirubin 0.6 mg/dL (0.2-1.0) 10/05/17 05:30 AST 73 U/L (15-37) H D 10/05/17 05:30 ALT 39 U/L (12-78) D 10/05/17 05:30 Alkaline Phosphatase 606 U/L (45-117) H D 10/05/17 05:30 Total Protein 6.1 g/dl (6.4-8.2) L 10/05/17 05:30 Albumin 2.8 g/dl (3.4-5.0) L 10/05/17 05:30 ASSESSMENT/PLAN: 71 y/o male with PMH HTN, Parkinson's presents after reported multiple falls. Reportedly has history of falls. Per notes, mention of incontinence and possibly tonic clonic activity. Patient denies history of seizures. Of note, anemic on labs and required RBC transfusion. CT head reivewed and without acute changes. Likely 2/2 anemia, continue monitoring CBC. Transfuse as needed. Check orthostatics, maintain hydration, deconditioning improving with hydration and ongoing care. No history of seizures, did not start AEDs. Remains on Levaquin, Abx as needed. Monitor BP, maintain normotensive range. Can continue Sinemet three times a day for Parkinson's. PT recommended, possibly for rehab placement. Fall precautions. Less interactive this AM, monitor mental status, consider repeat CT head if remains lethargic. May be 2/2 underlying infection, toxic metabolic.
[2017-10-07] MEDS ORDERED: SODIUM CHLORIDE 0.9% 1000 ML INFUS.BAG IV ONE (09:17)
[2017-10-07 09:22] LABS: BASO % 0.4 % (0-2.0); EOS % 3.7 % (0-4.5); HEMOGLOBIN 8.4 GM/dL (11.7-16.9); LYMPH % 22.5 % (8-40); MCH 31.4 pg (25.7-33.7); MCHC 33.6 g/dl (32.0-35.9); MEAN CELL VOLUME 93.4 fl (80-96); MEAN PLT VOLUME 7.5 fl (7.5-11.1); MONO % 7.5 % (3.8-10.2); NEUT % 65.9 % (42.8-82.8); PLATELET COUNT 247 K/MM3 (134-434); RBC 2.68 M/mm3 (4.00-5.60); RDW 17.5 % (11.9-15.9); WHITE BLOOD COUNT 6.9 K/mm3 (4.0-10.0)
[2017-10-07] MEDS: SODIUM CHLORIDE 1,000 ML IV SCH (10:49)
[2017-10-07] MEDS: ESCITALOPRAM OXALATE 10 MG TABLET (FP) PO SCH (11:21)
[2017-10-07] MEDS: SENNOSIDES/DOCUSATE COMBO (SENNA PLUS) TABLET (UD) PO SCH ×2 (11:21→21:21)
[2017-10-07] MEDS: POLYETHYLENE GLYCOL 3350 119 GM BTL PO SCH ×2 (11:23→21:23)
[2017-10-07] MEDS: PANTOPRAZOLE 40 MG TABLET (FP) PO SCH ×2 (11:23→21:22)
[2017-10-07 14:30] LABS: SERUM IRON SATURATION 16 % (15-55); TOTAL IRON BINDING CAPACITY 275 ug/dL (250-450); UIBC 231 ug/dL (111-343)
--- NOTE | 2017-10-07 14:34 | PN ---
Physical Exam: SUBJECTIVE: Patient seen and examined. Had brief hypotensive episode this morning with SBP ~60 and mental status change (arousable to sternal rub, A&Ox2 not place), given 1L bolus and NS line running 100cc/h, quickly recovered to baseline. Still no bowel movements OBJECTIVE: Vital Signs Period Temp Pulse Resp BP Sys/Zheng Pulse Ox Last 24 Hr 97.8 F-98.4 F 71-85 16-20 114-154/60-92 99-99 PE reflects evaluation several hours after hypotensive episode. GENERAL: At baseline, A&Ox3, alert and attentive, Parkinsonian bradykinesia/ psychomotor retardation, temporal wasting HEAD: Normal with no signs of trauma. EYES: PERRLA, EOMI, sclera anicteric, conjunctiva clear ENT: moist mucous membranes. NECK: Trachea midline, full range of motion, supple LUNGS: Breath sounds equal, clear to auscultation bilaterally, no wheezes, no crackles, no accessory muscle use. HEART: Regularly irregular, no m/r/g ABDOMEN: +bs, soft, NTND EXTREMITIES: 2+ pulses, warm, well-perfused, no edema NEUROLOGICAL: baseline unknown but seems to reflect chronic changes s/p CVA; only pertinent positives and negatives below: CN: reduced sensation in left CNV3, mild facial droop on left, asymmetric smile w/ tremulous left lower facial muscles, full strength upper facial muscles b/l, subtle left SCM and trapezius weakness motor: 5/5 strength throughout RUE and RLE, subtle (>4/5 strength) weakness throughout LUE and LLE, mild spasticity of LUE, spasticity of LLE could not be assessed d/t overwhelming rigidity, 2+ right biceps reflex, other reflexes could not be ascertained, non-reactive to plantar stimulation on right, downgoing plantar on left EPS: no tremor, mild-moderate rigidity of UE b/l, leadpipe rigidity of LE b/l , pronounced bradykinesia sensation: slightly reduced coarse sensation in left extremities and body, preserved vibration/position sense b/l cerebellar: intact FtN b/l PSYCH: Flattened affect Laboratory Results - last 24 hr 10/02/17 10/05/17 10/05/17 17:22 05:30 05:30 WBC Corrected WBC (auto) RBC Hgb Hct MCV MCH MCHC RDW Plt Count MPV Absolute Neuts (auto) Neutrophils % Lymphocytes % Monocytes % Eosinophils % Basophils % Nucleated RBC % Manual Slide Review Platelet Comment Haptoglobin 123 Creatine Kinase Troponin I Hep C Ab Diagnostic <0.1 Liver Fibrosis Interp Blood Type O POSITIVE Antibody Screen Negative Crossmatch See Detail 10/06/17 10/07/17 10/07/17 14:30 09:10 09:10 WBC 6.4 Cancelled 6.9 Corrected WBC (auto) Cancelled RBC 2.87 L Cancelled 2.68 L Hgb 8.9 L Cancelled 8.4 L Hct 26.4 L Cancelled 25.0 L MCV 92.0 Cancelled 93.4 MCH 31.0 Cancelled 31.4 MCHC 33.7 Cancelled 33.6 RDW 17.7 H Cancelled 17.5 H Plt Count 291 Cancelled 247 MPV 7.8 Cancelled 7.5 Absolute Neuts (auto) 4.0 4.5 Neutrophils % 62.4 65.9 Lymphocytes % 23.0 22.5 Monocytes % 8.8 7.5 Eosinophils % 5.2 H D 3.7 Basophils % 0.6 0.4 Nucleated RBC % 0 0 Manual Slide Review Cancelled Platelet Comment Cancelled Haptoglobin Creatine Kinase Troponin I Hep C Ab Diagnostic Liver Fibrosis Interp Blood Type Antibody Screen Crossmatch 10/07/17 13:00 WBC Corrected WBC (auto) RBC Hgb Hct MCV MCH MCHC RDW Plt Count MPV Absolute Neuts (auto) Neutrophils % Lymphocytes % Monocytes % Eosinophils % Basophils % Nucleated RBC % Manual Slide Review Platelet Comment Haptoglobin Creatine Kinase 50 Troponin I 0.08 H D Hep C Ab Diagnostic Liver Fibrosis Interp Blood Type Antibody Screen Crossmatch Active Medications Generic Name Dose Route Start Last Admin Trade Name Freq PRN Reason Stop Dose Admin Al Hydroxide/Mg Hydroxide 30 ml 10/03/17 20:15 10/07/17 11:22 Mylanta Oral Suspension - PO 30 ml Q6HPO [facility] Administration Carbidopa/Levodopa 1 each 10/03/17 06:00 10/07/17 06:53 Sinemet 25/100 - PO 1 each TID [facility] Administration Escitalopram Oxalate 10 mg 10/04/17 10:00 10/07/17 11:21 Lexapro - PO 10 mg DAILY [facility] Administration Sodium Chloride 1,000 mls @ 100 mls/hr 10/07/17 09:20 10/07/17 10:49 Normal Saline - IV 100 mls/hr ASDIR [facility] Administration Levofloxacin 500 mg 10/06/17 10:00 10/07/17 11:22 Levaquin - PO 10/08/17 10:01 500 mg DAILY [facility] Administration Pantoprazole Sodium 40 mg 10/06/17 22:00 10/07/17 11:23 Protonix - PO 40 mg BID [facility] Administration Polyethylene Glycol 17 gm 10/04/17 22:00 10/07/17 11:23 Miralax (For Daily Use) - PO 17 gm BID [facility] Administration Senna/Docusate Sodium 1 tablet 10/05/17 10:30 10/07/17 11:21 Pericolace - PO 1 tablet BID [facility] Administration ASSESSMENT/PLAN: 71 y/o M w/ PMHx Parkinson's disease and subacute onset of recurring syncope p/ w 1 day h/o 4 falls, the last of which was witnessed and accompanied by urinary and darkly bloody fecal incontinence and 5 minute period of tonic-clonic activity #syncope -continues to be orthostatic -transfuse if Hgb < 7.5 -EGD: multiple NSAID-induced ulcers, repeat EGD in 3 months -Protonix drip per GI #hypotension -corrected prior to bolus being given -may be related to Parkinsonian autonomic dysfunction -confusion afterwards may have been post-ictal to non-convulsive seizure -neurology consulted -repeat CT head negative -MRI brain w/o ordered -cardiology consulted for r/o of cardiogenic causes -repeat trop slightly positive (0.08), will get serials -awaiting repeat EKG -may be related to GI bleed -Hgb fell to 8.4 from post-transfusion peak of 10.5 -as per GI, Parkinsonian fecal impaction (Pt still constipated) may be concealing melena #UTI -Pseudomonas on UCx -levaquin 500 PO #KATHY -Cr at baseline #questionable seizure -neurology consulted -given possible recurrence of seizure, Keppra 500 BID w/ neuro's assent #HTN -hold d/t syncope and likely bleed -monitor VS, orthostatics #PD -cont sinemet #fall risk -precautions #FEN -no fluids -monitor lytes -regular diet #code -full #dispo -monitor on tele, Pt now amenable to d/c to SNF Visit type - Emergency Visit Emergency Visit: No - New Patient This patient is new to me today: No - Critical Care Critical Care patient: No
--- NOTE | 2017-10-07 15:03 | CON.CARD ---
Consult Consult Specialty:: cardiology - History of Present Illness History of Present Illness: 71 y/o M brought in for numerous falls today along with both urinary and fecal incontinence. As per , patient noted to have tonic clonic movements and confusion after. No prior h/o seizures. PMH: HTN, Parkinsons and h/o falls Ct head done was negative for any mass or bleed. 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 History of Recent Travel: No Home Medications - Allergies Allergies/Adverse Reactions: Allergies Allergy/AdvReac Type Severity Reaction Status Date / Time No Known Allergies Allergy Verified 04/10/16 18:20 - Home Medications Home Medications: Ambulatory Orders Amlodipine Besylate [Norvasc -] 1 tab PO DAILY 01/12/17 Escitalopram Oxalate [Lexapro -] 1 tab PO DAILY 01/12/17 Losartan Potassium 1 tab PO DAILY 01/12/17 Carbidopa/Levodopa [Carbidopa-Levodopa 25-100 Tab] 1 each PO TID 10/02/17 Dextromethorphan HBr/Quinidine [Nuedexta 20-10 mg Capsule] 1 each PO BID Meloxicam 7.5 mg PO DAILY 10/02/17 Mirtazapine 15 mg PO DAILY 10/02/17 Linaclotide [Linzess] 72 mcg PO DAILY 10/03/17 Family Disease History - Family Disease History Other Family History: No family history of colorectal cancer or other GI malignancy Vital Signs: Vital Signs Temperature 98.0 F 10/07/17 09:00 Pulse Rate 85 10/07/17 09:00 Respiratory Rate 16 10/07/17 09:00 Blood Pressure 114/60 10/07/17 09:00 O2 Sat by Pulse Oximetry (%) 99 10/07/17 09:00 - Other Data Labs, Other Data: CBC, BMP 10/07/17 09:10 10/05/17 05:30 INR, PTT INR 1.13 (0.82-1.09) 10/05/17 05:30 Troponin, BNP 10/07/17 13:00 Troponin I 0.08 H D Troponin, BNP 10/07/17 13:00 Troponin I 0.08 H D
[2017-10-07 16:05] LABS: HEMATOCRIT 27.7 % (35.4-49); MCH 30.2 pg (25.7-33.7); MCHC 32.4 g/dl (32.0-35.9); MEAN CELL VOLUME 93.3 fl (80-96); MEAN PLT VOLUME 8.2 fl (7.5-11.1); PLATELET COUNT 305 K/MM3 (134-434); RBC 2.97 M/mm3 (4.00-5.60); RDW 18.3 % (11.9-15.9); WHITE BLOOD COUNT 7.7 K/mm3 (4.0-10.0)
--- NOTE | 2017-10-07 16:07 | PN ---
Teaching Attending Note Name of Resident: Primo Taylor ATTENDING PHYSICIAN STATEMENT I saw and evaluated the patient. I reviewed the resident's note and discussed the case with the resident. I agree with the resident's findings and plan as documented. No complaints , no fever or chills, has no pain. he had a period of non responsiveness ( few seconds) with head turned to R , hand clinging to his table and mouth open . later today he was found unresponsive by RN with BP of 60, after correction of hypotension with IVF, the patient remained very lethargic and confused and arousable only with sternal rub. head CT was done , and was neg for bleed or stroke. after event,around 1 PM , I saw patient again, and he was completely awake , at his ifeanyi line, eating lunch, and has no complaints NAD, awake , alert ,and cooperative . flat affect CV: regularly irreg . no MRG Lungs: CTAB Ext: no edema or erythema ASSESSMENT AND PLAN: 71 y/o gentleman with h/o Parkinsonism's, HTN and recurrent falls who presented from home with a syncopal episode in the shower accompanied by melena nad BRBPR 1- Episode of non responsiveness this am : likely having seizures with postictal period. the episode witnessed by me as described above , is also suspicious for seizure activity - check EEG - check MRI w/o Zachary - will d/w Neuro the need for loading and maintenance AED 2- Orthostatic hypotension : improved , but not resolved. probably has autonomic dysfunction due to PArkinson's and is on PArkinson's meds . - Unexplained sudden onset of hypotension ( SBP 65) this am with LOC. tele at that time with no molly/tachy events . - BP after 250 cc bolus 150s . dc IVF - cont to hold antihypertensive meds - CArd eval 3- Acute blood loss anemia due to NSAIDs induced gastric ulcers. s/p EGD - Hb trending down. but doubt re-bleeding - cont PPI - repeat Hb 3- h/o HTN: cont to hold antihypertensive meds. will likely start one of them only tomorrow 4- Parkinson's : cont Carbi/levo 5- UTI: day 6 /7 of Abx . cont levaquin HLOC At dc , he will go home with VNS. refused SNF
[2017-10-07] MEDS: levETIRAcetam 500 MG TABLET (FP) PO SCH (21:20)
--- NOTE | 2017-10-07 21:44 | EKG ---
Test Reason : Blood Pressure : / mmHG Vent. Rate : 085 BPM Atrial Rate : 085 BPM P-R Int : 158 ms QRS Dur : 090 ms QT Int : 368 ms P-R-T Axes : 050 031 050 degrees QTc Int : 437 ms SINUS RHYTHM WITH PREMATURE ATRIAL COMPLEXES OTHERWISE NORMAL ECG WHEN COMPARED WITH ECG OF 02-OCT-2017 15:00, PREMATURE ATRIAL COMPLEXES ARE NOW PRESENT Confirmed by MD ECHO, LUIS ([id number]) on 10/07/2017 9:44:27 PM Referred By: Kartik VILLARREAL Confirmed By:LUIS DODGE MD
[2017-10-08 00:17] LABS: HBSAG SCREEN Negative (Negative); HEP A AB, IGM Negative (Negative); HEP B CORE AB, TOT Negative (Negative)
[2017-10-08] MEDS: MAG HYDROX/AL HYDROX/SIMETH 30 ML UNIT-DOSE CUP PO SCH ×2 (05:42)
[2017-10-08] MEDS: CARBIDOPA/LEVODOPA 25/100 TABLET (FP) PO SCH ×2 (05:42→13:26)
--- NOTE | 2017-10-08 06:49 | PN ---
Physical Exam: SUBJECTIVE: Patient seen and examined at bedside. Back to baseline s/p hypotensive episode and possible seizure. No complaints. Still no BMs after 6 days hospitalization. OBJECTIVE: Vital Signs Period Temp Pulse Resp BP Sys/Zheng Pulse Ox Last 24 Hr 97.9 F-99 F 79-85 16-20 114-162/60-96 99-99 GENERAL: At baseline, A&Ox3, alert and attentive, Parkinsonian bradykinesia/ psychomotor retardation, temporal wasting HEAD: Normal with no signs of trauma. EYES: PERRLA, EOMI, sclera anicteric, conjunctiva clear ENT: dry mouth observed despite IVF NECK: Trachea midline, full range of motion, supple LUNGS: Breath sounds equal, clear to auscultation bilaterally, no wheezes, no crackles, no accessory muscle use. HEART: Regularly irregular, no m/r/g ABDOMEN: +bs, soft, NTND EXTREMITIES: 2+ pulses, warm, well-perfused, no edema NEUROLOGICAL: baseline unknown but seems to reflect chronic changes s/p CVA; only pertinent positives and negatives below: CN: reduced sensation in left CNV3, mild facial droop on left, asymmetric smile w/ tremulous left lower facial muscles, full strength upper facial muscles b/l, subtle left SCM and trapezius weakness motor: 5/5 strength throughout RUE and RLE, subtle (>4/5 strength) weakness throughout LUE and LLE, mild spasticity of LUE, spasticity of LLE could not be assessed d/t overwhelming rigidity, 2+ right biceps reflex, other reflexes could not be ascertained, non-reactive to plantar stimulation on right, downgoing plantar on left EPS: no tremor, mild-moderate rigidity of UE b/l, leadpipe rigidity of LE b/l , pronounced bradykinesia sensation: slightly reduced coarse sensation in left extremities and body, preserved vibration/position sense b/l cerebellar: intact FtN b/l PSYCH: Flattened affect Laboratory Results - last 24 hr 10/02/17 10/04/17 10/05/17 17:22 05:30 05:30 WBC Corrected WBC (auto) RBC Hgb Hct MCV MCH MCHC RDW Plt Count MPV Absolute Neuts (auto) Neutrophils % Lymphocytes % Monocytes % Eosinophils % Basophils % Nucleated RBC % Manual Slide Review Platelet Comment Iron 44 TIBC 275 Iron Saturation 16 Creatine Kinase Troponin I Stool H. 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 Intrp 32 H Hep A IgM Ab Confirm Negative Hepatitis A Ab Total Positive H Hep Bs Antigen Negative Hep Bs Antibody Reactive Hep B Core Total Ab Negative Hep C Ab Diagnostic <0.1 Liver Fibrosis Interp Blood Type O POSITIVE Antibody Screen Negative Crossmatch See Detail 10/07/17 10/07/17 10/07/17 09:10 09:10 13:00 WBC Cancelled 6.9 Corrected WBC (auto) Cancelled RBC Cancelled 2.68 L Hgb Cancelled 8.4 L Hct Cancelled 25.0 L MCV Cancelled 93.4 MCH Cancelled 31.4 MCHC Cancelled 33.6 RDW Cancelled 17.5 H Plt Count Cancelled 247 MPV Cancelled 7.5 Absolute Neuts (auto) 4.5 Neutrophils % 65.9 Lymphocytes % 22.5 Monocytes % 7.5 Eosinophils % 3.7 Basophils % 0.4 Nucleated RBC % 0 Manual Slide Review Cancelled Platelet Comment Cancelled Iron TIBC Iron Saturation Creatine Kinase 50 Troponin I 0.08 H D Stool H. 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 Intrp Hep A IgM Ab Confirm Hepatitis A Ab Total Hep Bs Antigen Hep Bs Antibody Hep B Core Total Ab Hep C Ab Diagnostic Liver Fibrosis Interp Blood Type Antibody Screen Crossmatch Active Medications Generic Name Dose Route Start Last Admin Trade Name Freq PRN Reason Stop Dose Admin Al Hydroxide/Mg Hydroxide 30 ml 10/03/17 20:15 10/08/17 05:42 Mylanta Oral Suspension - PO 30 ml Q6HPO MICAH Administration Carbidopa/Levodopa 1 each 10/03/17 06:00 10/08/17 05:42 Sinemet 25/100 - PO 1 each TID MICAH Administration Escitalopram Oxalate 10 mg 10/04/17 10:00 10/07/17 11:21 Lexapro - PO 10 mg DAILY MICAH Administration Sodium Chloride 1,000 mls @ 100 mls/hr 10/07/17 09:20 10/07/17 10:49 Normal Saline - IV 100 mls/hr ASDIR MICAH Administration Levetiracetam 500 mg 10/07/17 22:00 10/07/17 21:20 Keppra - PO 500 mg BID MICAH Administration Levofloxacin 500 mg 10/06/17 10:00 10/07/17 11:22 Levaquin - PO 10/08/17 10:01 500 mg DAILY MICAH Administration Pantoprazole Sodium 40 mg 10/06/17 22:00 10/07/17 21:22 Protonix - PO 40 mg BID MICAH Administration Polyethylene Glycol 17 gm 10/04/17 22:00 10/07/17 21:23 Miralax (For Daily Use) - PO 17 gm BID MICAH Administration Senna/Docusate Sodium 1 tablet 10/05/17 10:30 10/07/17 21:21 Pericolace - PO 1 tablet BID MICAH Administration ASSESSMENT/PLAN: 71 y/o M w/ PMHx Parkinson's disease and subacute onset of recurring syncope p/ w 1 day h/o 4 falls, the last of which was witnessed and accompanied by urinary and darkly bloody fecal incontinence and 5 minute period of tonic-clonic activity #syncope -continues to be orthostatic -transfuse if Hgb < 7.5 -EGD: multiple NSAID-induced ulcers, repeat EGD in 3 months -Protonix drip per GI #hypotension -corrected prior to bolus being given -may be related to Parkinsonian autonomic dysfunction/multi-system atrophy -confusion afterwards may have been post-ictal to non-convulsive seizure -neurology consulted -repeat CT head negative -MRI brain w/o ordered -cardiology consulted for r/o of cardiogenic causes -repeat trop slightly positive (0.08), will get serials -awaiting repeat EKG -may be related to GI bleed -Hgb fell to 8.4 from post-transfusion peak of 10.5, now corrected to 9 -as per GI, Parkinsonian fecal impaction (Pt still constipated) may be concealing melena #constipation -no BMs since incontinent episode leading to hospitalization -consider Parkinsonian dysfunction -fecal impaction may be concealing bleed #UTI -Pseudomonas on UCx -levaquin 500 PO #KATHY -Cr at baseline #questionable seizure -neurology consulted -given possible recurrence of seizure, Keppra 500 BID w/ neuro's assent #HTN -hold d/t syncope and likely bleed -monitor VS, orthostatics #PD -cont sinemet #fall risk -precautions #FEN -no fluids -monitor lytes -regular diet #code -full #dispo -monitor on tele, Pt now amenable to d/c to SNF
[2017-10-08 06:59] LABS: CHLORIDE 107 mmol/L (98-107); SODIUM 143 mmol/L (136-145)
[2017-10-08 07:02] LABS: ANION GAP 6 (8-16); BLOOD UREA NITROGEN 12 mg/dL (7-18); CALCIUM 8.7 mg/dL (8.5-10.1); CO2 30 mmol/L (21-32); CREATININE 0.9 mg/dL (0.7-1.3); GLUCOSE,RANDOM 83 mg/dL (74-106)
[2017-10-08 07:52] LABS: POTASSIUM 4.9 mmol/L (3.5-5.1)
[2017-10-08 08:17] LABS: BASO % 0.6 % (0-2.0); EOS % 3.8 % (0-4.5); HEMOGLOBIN 8.8 GM/dL (11.7-16.9); LYMPH % 22.4 % (8-40); MCH 31.4 pg (25.7-33.7); MEAN CELL VOLUME 92.3 fl (80-96); MEAN PLT VOLUME 7.5 fl (7.5-11.1); MONO % 8.5 % (3.8-10.2); NEUT % 64.7 % (42.8-82.8); PLATELET COUNT 263 K/MM3 (134-434); RBC 2.81 M/mm3 (4.00-5.60); WHITE BLOOD COUNT 7.3 K/mm3 (4.0-10.0)
--- NOTE | 2017-10-08 08:21 | PN ---
Teaching Attending Note Name of Resident: Primo Taylor ATTENDING PHYSICIAN STATEMENT I saw and evaluated the patient. I reviewed the resident's note and discussed the case with the resident. I agree with the resident's findings and plan as documented. SUBJECTIVE: Patient is lying in bed, AA0x3, patient has no new complains. No further seizure activity noted or reported. OBJECTIVE: Vital Signs Temperature 98.6 F 10/08/17 06:17 Pulse Rate 82 10/08/17 06:17 Respiratory Rate 20 10/08/17 06:17 Blood Pressure 127/76 10/08/17 06:17 O2 Sat by Pulse Oximetry (%) 99 10/07/17 20:29 CBCD WBC 7.7 K/mm3 (4.0-10.0) 10/07/17 15:15 RBC 2.97 M/mm3 (4.00-5.60) L 10/07/17 15:15 Hgb 9.0 GM/dL (11.7-16.9) L 10/07/17 15:15 Hct 27.7 % (35.4-49) L 10/07/17 15:15 MCV 93.3 fl (80-96) 10/07/17 15:15 MCHC 32.4 g/dl (32.0-35.9) 10/07/17 15:15 RDW 18.3 % (11.9-15.9) H 10/07/17 15:15 Plt Count 305 K/MM3 (134-434) D 10/07/17 15:15 MPV 8.2 fl (7.5-11.1) 10/07/17 15:15 CMP Sodium 143 mmol/L (136-145) 10/08/17 05:30 Potassium 4.9 mmol/L (3.5-5.1) D 10/08/17 05:30 Chloride 107 mmol/L (98-107) 10/08/17 05:30 Carbon Dioxide 30 mmol/L (21-32) 10/08/17 05:30 Anion Gap 6 (8-16) L 10/08/17 05:30 BUN 12 mg/dL (7-18) 10/08/17 05:30 Creatinine 0.9 mg/dL (0.7-1.3) 10/08/17 05:30 Creat Clearance w eGFR > 60 (>60) 10/08/17 05:30 Random Glucose 83 mg/dL (74-106) 10/08/17 05:30 Calcium 8.7 mg/dL (8.5-10.1) 10/08/17 05:30 Total Bilirubin 0.6 mg/dL (0.2-1.0) 10/05/17 05:30 AST 73 U/L (15-37) H D 10/05/17 05:30 ALT 39 U/L (12-78) D 10/05/17 05:30 Alkaline Phosphatase 606 U/L (45-117) H D 10/05/17 05:30 Total Protein 6.1 g/dl (6.4-8.2) L 10/05/17 05:30 Albumin 2.8 g/dl (3.4-5.0) L 10/05/17 05:30 CARDIAC ENZYMES Creatine Kinase 53 IU/L (39-308) 10/07/17 19:30 Troponin I 0.05 ng/ml (0.00-0.05) D 10/07/17 19:30 Current Medications Generic Name Dose Route Start Last Admin Trade Name Freq PRN Reason Stop Dose Admin Al Hydroxide/Mg Hydroxide 30 ml 10/03/17 20:15 10/08/17 05:42 Mylanta Oral Suspension - PO 30 ml Q6HPO MICAH Administration Carbidopa/Levodopa 1 each 10/03/17 06:00 10/08/17 05:42 Sinemet 25/100 - PO 1 each TID MICAH Administration Escitalopram Oxalate 10 mg 10/04/17 10:00 10/07/17 11:21 Lexapro - PO 10 mg DAILY MICAH Administration Sodium Chloride 1,000 mls @ 100 mls/hr 10/07/17 09:20 10/07/17 10:49 Normal Saline - IV 100 mls/hr ASDIR MICAH Administration Levetiracetam 500 mg 10/07/17 22:00 10/07/17 21:20 Keppra - PO 500 mg BID MICAH Administration Levofloxacin 500 mg 10/06/17 10:00 10/07/17 11:22 Levaquin - PO 10/08/17 10:01 500 mg DAILY MICAH Administration Pantoprazole Sodium 40 mg 10/06/17 22:00 10/07/17 21:22 Protonix - PO 40 mg BID MICAH Administration Polyethylene Glycol 17 gm 10/04/17 22:00 10/07/17 21:23 Miralax (For Daily Use) - PO 17 gm BID MICAH Administration Senna/Docusate Sodium 1 tablet 10/05/17 10:30 10/07/17 21:21 Pericolace - PO 1 tablet BID MICAH Administration Home Medications Medication Instructions Recorded Amlodipine Besylate [Norvasc -] 1 tab PO DAILY 01/12/17 Escitalopram Oxalate [Lexapro -] 1 tab PO DAILY 01/12/17 Losartan Potassium 1 tab PO DAILY 01/12/17 Carbidopa/Levodopa 1 each PO TID 10/02/17 [Carbidopa-Levodopa 25-100 Tab] Dextromethorphan HBr/Quinidine 1 each PO BID 10/02/17 [Nuedexta 20-10 mg Capsule] Meloxicam 7.5 mg PO DAILY 10/02/17 Mirtazapine 15 mg PO DAILY 10/02/17 Linaclotide [Linzess] 72 mcg PO DAILY 10/03/17 Reason for the study. AMS MRI of the brain without IV contrast enhancement. Multiple pulse sequences were completed utilizing the [employer] 1.5T. [employer] MRI system. Sagittal: T1. Axial: T2, FLAIR, T2 gradient echo, diffusion-weighted. Coronal. T1 FLAIR. Comparison study, CT brain October 07, 2017 Findings. The intracranial contents are shown well from the dior magnum to the cranial vertex. No evidence of acute ischemia, edema or hemorrhage. There is no mass effect, midline shift, intra or extra axial collections. Normal corpus callosum is noted. No evidence of tonsillar ectopia. CSF spaces are age-appropriate. No evidence of hydrocephalus. Normal signal intensity of the cerebrum, brainstem, cerebellum. There is normal flow void within the major intracranial vessels indicating of patency of vessels No abnormalities are seen in the sella, suprasellar region. Normal pituitary infundibulum, optic chiasm. The orbits are within normal limits. Symmetrical optic nerves, extraocular muscles. Normal signal intensity of retro orbital fat. No abnormalities are seen in region of CP angle cisterns. Small retention cyst left maxillary sinus. Normal signal intensity of the calvarium. Impression. No evidence of acute ischemia, edema or hemorrhage, mass effect, midline shift, intra or extra axial collections. Reported By: Dwight Carmona MD 10/08/17 0826 PE: per resident's note ASSESSMENT AND PLAN: Patient is a 71 y/o male with Hx of Parkinsonism's, HTN and recurrent falls who presented from home with a syncopal episode in the shower accompanied by melena and BRBPR. # Orthostatic hypotension : improved , Possible due that the patient has an autonomic dysfunction due to Parkinsonism and meds. Patient's BP meds discontinued. Francescone is on the case. # Witnessed seizure was started on Keppera as per neuro will continue. Mri is negative. #Acute blood loss anemia due to NSAIDs induced gastric ulcers. s/p EGD continue PPI # Hx of HTN: off Bp meds for now since having Orthostatic hypotension # Parkinson's : cont Carbi/levo # UTI: cont levaquin 3 more days # Constipation: continue current regimen Patient is being discharged to SNF
--- NOTE | 2017-10-08 08:28 | PN ---
Progress Note, Physician Chief Complaint: Mr. Cary is our office patient, sees Dr. Mccormack regularly and has a long history of orthostatic hypotension and recurrent syncope. He has had a loop recorder in the past which was explanted as no arrhythmias were found. History of Present Illness: He denies chest pain or SOB TELE: NSR, APCs - Current Medication List Current Medications: Active Medications Al Hydroxide/Mg Hydroxide (Mylanta Oral Suspension -) 30 ml PO Q6HPO [facility] Last Admin: 10/08/17 05:42 Dose: 30 ml Carbidopa/Levodopa (Sinemet 25/100 -) 1 each PO TID [facility] Last Admin: 10/08/17 05:42 Dose: 1 each Escitalopram Oxalate (Lexapro -) 10 mg PO DAILY [facility] Last Admin: 10/07/17 11:21 Dose: 10 mg Sodium Chloride (Normal Saline -) 1,000 mls @ 100 mls/hr IV ASDIR [facility] Last Admin: 10/07/17 10:49 Dose: 100 mls/hr Levetiracetam (Keppra -) 500 mg PO BID [facility] Last Admin: 10/07/17 21:20 Dose: 500 mg Levofloxacin (Levaquin -) 500 mg PO DAILY [facility] Stop: 10/08/17 10:01 Last Admin: 10/07/17 11:22 Dose: 500 mg Pantoprazole Sodium (Protonix -) 40 mg PO BID [facility] Last Admin: 10/07/17 21:22 Dose: 40 mg Polyethylene Glycol (Miralax (For Daily Use) -) 17 gm PO BID [facility] Last Admin: 10/07/17 21:23 Dose: 17 gm Senna/Docusate Sodium (Pericolace -) 1 tablet PO BID [facility] Last Admin: 10/07/17 21:21 Dose: 1 tablet - Objective Vital Signs: Vital Signs Temperature 98.6 F 10/08/17 06:17 Pulse Rate 82 10/08/17 06:17 Respiratory Rate 20 10/08/17 06:17 Blood Pressure 127/76 10/08/17 06:17 O2 Sat by Pulse Oximetry (%) 99 10/07/17 20:29 Constitutional: Yes: No Distress Cardiovascular: Yes: Regular Rate and Rhythm Respiratory: Yes: CTA Bilaterally Gastrointestinal: Yes: Soft Edema: No Labs: CBC, BMP 10/08/17 05:30 10/08/17 05:30 INR, PTT INR 1.13 (0.82-1.09) 10/05/17 05:30 - ....Imaging EKG: Image Reviewed Assessment/Plan IMP: GI bleed secondary to PUD s/p EGD Anemia due to above Parkinson's Disease Chronic autonomic dysfx and orthostatic hypotension leading to syncopal episodes Seizures REC: 1. Neuro work up as per PMD, Neuro 2. Agree with holding BP meds for now, BP does tend to fluctuate- will need to monitor closely. Previous extensive cardiac work up including ILR in past had been unrevealing. 3. Follow H/H, continue PPI.
--- NOTE | 2017-10-08 09:12 | PN ---
Progress Note (short form) - Note Progress Note: Neurology HISTORY OF PRESENT ILLNESS: 71 y/o male with PMH HTN, Parkinson's presents after reported multiple falls. Reportedly has history of falls. Per notes, mention of incontinence and possibly tonic clonic activity. Patient denied history of seizures. Of note, anemic on labs and required RBC transfusion on admission. CT head reivewed and without acute changes. Somnolent yesterday, completed repeat CT head without acute changes. Also reviewed MRI brain that was completed and no acute changes noted. Spoke to resident yesterday, informed that PCP had witnessed abnormal motor activity and asked if it would be appropriate to start Keppra, I was in agreement. This AM, more awake, alert, interactive. Knows he's in the hospital. No new neurologic events overnight. Active Medications Al Hydroxide/Mg Hydroxide (Mylanta Oral Suspension -) 30 ml PO Q6HPO [facility] Last Admin: 10/08/17 05:42 Dose: 30 ml Carbidopa/Levodopa (Sinemet 25/100 -) 1 each PO TID [facility] Last Admin: 10/08/17 05:42 Dose: 1 each Escitalopram Oxalate (Lexapro -) 10 mg PO DAILY [facility] Last Admin: 10/07/17 11:21 Dose: 10 mg Sodium Chloride (Normal Saline -) 1,000 mls @ 100 mls/hr IV ASDIR [facility] Last Admin: 10/07/17 10:49 Dose: 100 mls/hr Levetiracetam (Keppra -) 500 mg PO BID [facility] Last Admin: 10/07/17 21:20 Dose: 500 mg Levofloxacin (Levaquin -) 500 mg PO DAILY [facility] Stop: 10/08/17 10:01 Last Admin: 10/07/17 11:22 Dose: 500 mg Pantoprazole Sodium (Protonix -) 40 mg PO BID [facility] Last Admin: 10/07/17 21:22 Dose: 40 mg Polyethylene Glycol (Miralax (For Daily Use) -) 17 gm PO BID [facility] Last Admin: 10/07/17 21:23 Dose: 17 gm Senna/Docusate Sodium (Pericolace -) 1 tablet PO BID [facility] Last Admin: 10/07/17 21:21 Dose: 1 tablet PHYSICAL EXAMINATION Vital Signs Period Temp Pulse Resp BP Sys/Zheng Pulse Ox Last 24 Hr 97.9 F-99 F 79-84 20-20 116-162/72-96 99 GENERAL: Somnolent but arousable, followed simple commands HEAD: Normal with no signs of trauma. EYES: Pupils equal, round and reactive to light, extraocular movements intact, sclera anicteric. EARS, NOSE, THROAT: Oropharynx clear without exudates. Moist mucous membranes. NECK: Normal range of motion, supple without JVD LUNGS: Breath sounds equal, clear to auscultation bilaterally. No wheezes, and no crackles. HEART: Regular rate and rhythm, normal S1 and S2 without murmur, rub or gallop. ABDOMEN: Soft, nontender, not distended, normoactive bowel sounds, no guarding, no rebound, no masses. No hepatomegaly or splenomegaly. RECTAL: No external hemorrhoids noted. Rectal vault with trace amounts dark colored, tarry stool. FOBT was positive. MUSCULOSKELETAL: Normal range of motion at all joints. No bony deformities or tenderness. EXTREMITIES: 2+ pulses, warm, well-perfused. No peripheral edema. NEUROLOGICAL: No focal defecits. Bradykinesia noted, no tremor, +cogwheeling, sensory intact, grossly intact strenght, gait deferred PSYCHIATRIC: Cooperative. CBCD WBC 7.3 K/mm3 (4.0-10.0) 10/08/17 05:30 RBC 2.81 M/mm3 (4.00-5.60) L 10/08/17 05:30 Hgb 8.8 GM/dL (11.7-16.9) L 10/08/17 05:30 Hct 26.0 % (35.4-49) L 10/08/17 05:30 MCV 92.3 fl (80-96) 10/08/17 05:30 MCHC 34.0 g/dl (32.0-35.9) 10/08/17 05:30 RDW 18.0 % (11.9-15.9) H 10/08/17 05:30 Plt Count 263 K/MM3 (134-434) 10/08/17 05:30 MPV 7.5 fl (7.5-11.1) 10/08/17 05:30 CMP Sodium 143 mmol/L (136-145) 10/08/17 05:30 Potassium 4.9 mmol/L (3.5-5.1) D 10/08/17 05:30 Chloride 107 mmol/L (98-107) 10/08/17 05:30 Carbon Dioxide 30 mmol/L (21-32) 10/08/17 05:30 Anion Gap 6 (8-16) L 10/08/17 05:30 BUN 12 mg/dL (7-18) 10/08/17 05:30 Creatinine 0.9 mg/dL (0.7-1.3) 10/08/17 05:30 Creat Clearance w eGFR > 60 (>60) 10/08/17 05:30 Calcium 8.7 mg/dL (8.5-10.1) 10/08/17 05:30 Total Bilirubin 0.6 mg/dL (0.2-1.0) 10/05/17 05:30 AST 73 U/L (15-37) H D 10/05/17 05:30 ALT 39 U/L (12-78) D 10/05/17 05:30 Alkaline Phosphatase 606 U/L (45-117) H D 10/05/17 05:30 Total Protein 6.1 g/dl (6.4-8.2) L 10/05/17 05:30 Albumin 2.8 g/dl (3.4-5.0) L 10/05/17 05:30 CT head reviewed MRI brain reviewed ASSESSMENT/PLAN: 71 y/o male with PMH HTN, Parkinson's presents after reported multiple falls. Reportedly has history of falls. Per notes, mention of incontinence and possibly tonic clonic activity. Patient denies history of seizures. Of note, anemic on labs and required RBC transfusion. CT head reivewed and without acute changes. Likely 2/2 anemia, continue monitoring CBC. Transfuse as needed. Check orthostatics, maintain hydration, deconditioning improving with hydration and ongoing care. CT head without acute changes. MRI brain without acute changes. Started on Keppra for concern for seizure like activity. Remains on Levaquin, Abx as needed. Monitor BP, maintain normotensive range. Can continue Sinemet three times a day for Parkinson's. PT recommended, possibly for rehab placement. Fall precautions. At baseline mental status during my evaluation this AM.
[2017-10-08] MEDS: levETIRAcetam 500 MG TABLET (FP) PO SCH (09:43)
[2017-10-08] MEDS: ESCITALOPRAM OXALATE 10 MG TABLET (FP) PO SCH (09:44)
[2017-10-08] MEDS: PANTOPRAZOLE 40 MG TABLET (FP) PO SCH (09:44)
[2017-10-08] MEDS: SENNOSIDES/DOCUSATE COMBO (SENNA PLUS) TABLET (UD) PO SCH (09:44)
[2017-10-08] MEDS: SODIUM CHLORIDE 1,000 ML IV SCH (09:45)
[2017-10-08] MEDS: POLYETHYLENE GLYCOL 3350 119 GM BTL PO SCH (09:47)
[2017-10-08 14:27] VITALS: BP 155/91; PULSE 71; TEMP 98.3
--- NOTE | 2017-10-08 14:35 | DS ---
Physical Exam: SUBJECTIVE: Patient seen and examined OBJECTIVE: Vital Signs Period Temp Pulse Resp BP Sys/Zheng Pulse Ox Last 24 Hr 97.5 F-99 F 71-91 20-20 85-155/52-96 99-99 PHYSICAL EXAM GENERAL: At baseline, A&Ox3, alert and attentive, Parkinsonian bradykinesia/ psychomotor retardation, temporal wasting HEAD: Normal with no signs of trauma. EYES: PERRLA, EOMI, sclera anicteric, conjunctiva clear ENT: dry mouth observed despite IVF NECK: Trachea midline, full range of motion, supple LUNGS: Breath sounds equal, clear to auscultation bilaterally, no wheezes, no crackles, no accessory muscle use. HEART: Regularly irregular, no m/r/g ABDOMEN: +bs, soft, NTND EXTREMITIES: 2+ pulses, warm, well-perfused, no edema NEUROLOGICAL: baseline unknown but seems to reflect chronic changes s/p CVA; only pertinent positives and negatives below: CN: reduced sensation in left CNV3, mild facial droop on left, asymmetric smile w/ tremulous left lower facial muscles, full strength upper facial muscles b/l, subtle left SCM and trapezius weakness motor: 5/5 strength throughout RUE and RLE, subtle (>4/5 strength) weakness throughout LUE and LLE, mild spasticity of LUE, spasticity of LLE could not be assessed d/t overwhelming rigidity, 2+ right biceps reflex, other reflexes could not be ascertained, non-reactive to plantar stimulation on right, downgoing plantar on left EPS: no tremor, mild-moderate rigidity of UE b/l, leadpipe rigidity of LE b/l , pronounced bradykinesia sensation: slightly reduced coarse sensation in left extremities and body, preserved vibration/position sense b/l cerebellar: intact FtN b/l PSYCH: Flattened affect LABS Laboratory Results - last 24 hr 10/04/17 10/05/17 10/07/17 05:30 05:30 15:15 WBC 7.7 RBC 2.97 L Hgb 9.0 L Hct 27.7 L MCV 93.3 MCH 30.2 MCHC 32.4 RDW 18.3 H Plt Count 305 D MPV 8.2 Absolute Neuts (auto) Neutrophils % Lymphocytes % Monocytes % Eosinophils % Basophils % Nucleated RBC % Sodium Potassium Chloride Carbon Dioxide Anion Gap BUN Creatinine Creat Clearance w eGFR Random Glucose Calcium Creatine Kinase Troponin I Carcinoembryonic Ag 3.0 Smooth Musc &[employer] Intrp 32 H Hep A IgM Ab Confirm Negative Hepatitis A Ab Total Positive H Hep Bs Antigen Negative Hep Bs Antibody Reactive Hep B Core Total Ab Negative 10/07/17 10/08/17 10/08/17 19:30 05:30 05:30 WBC 7.3 RBC 2.81 L Hgb 8.8 L Hct 26.0 L MCV 92.3 MCH 31.4 MCHC 34.0 RDW 18.0 H Plt Count 263 MPV 7.5 Absolute Neuts (auto) 4.7 Neutrophils % 64.7 Lymphocytes % 22.4 Monocytes % 8.5 Eosinophils % 3.8 Basophils % 0.6 Nucleated RBC % 0 Sodium 143 Potassium 4.9 D Chloride 107 Carbon Dioxide 30 Anion Gap 6 L BUN 12 Creatinine 0.9 Creat Clearance w eGFR > 60 Random Glucose 83 Calcium 8.7 Creatine Kinase 53 99 Troponin I 0.05 D 0.05 Carcinoembryonic Ag Smooth Musc &[employer] Intrp Hep A IgM Ab Confirm Hepatitis A Ab Total Hep Bs Antigen Hep Bs Antibody Hep B Core Total Ab HOSPITAL COURSE: Date of Admission:10/02/17 The patient is 71 y/o M w/ PMHx Parkinson's disease and 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 CT of the head and CXR revealed no acute pathology. EKG and troponins were negative for ACS. LFTs were abnormal without apparent cause. RUQ ultrasound revealed no liver or gallbladder abnormalities. Blood pressures were noted to be labile, around the low end of normotensive, and orthostatic; consequently home antihypertensives were withheld. The patient was additionally noted on admission to have UTI, which was empirically treated with Ceftriaxone until cultures grew Levofloxacin-sensitive P. aeruginosa; subsequently he was given Levofloxacin for antibiotic coverage. He was further noted on admission to be anemic to Hgb 7 d/t presumed GI bleed, and two units PRBC were given, subsequent to which his Hgb keshia to 8.6. GI and neurology were consulted. GI performed EGD which revealed multiple non-bleeding NSAID-induced ulcers but no apparent source of active bleeding; he was placed on Protonix. Neurology evaluated the patient and did not have high suspicion of a neurogenic cause of his symptoms. On the morning following EGD, Hgb measured 6.6 and he was ordered another two units PRBC; however, CBC was drawn following the first unit and Hgb measured 10.5. Consequently no further PRBCs were given. From that point, Hgb stabilized at approximately 9 for the duration of his hospitalization. The measurement of Hgb at 6.6 was assumed to be a lab error due to the overcorrection with 1 unit PRBCs. The patient had no bowel movement for the duration of his hospitalization, and it was further noted by GI that Parkinson- related fecal impaction may be concealing melena. He was treated with Miralax and Jacqueline-colace for constipation, but without success. On 10/07/17, the patient experienced a brief episode of significant hypotension with systolic BP in the 60s, accompanied by mental status changes and witnessed posturing/dyskinesia. This was treated with a bolus of 1L NS and ongoing NS IVF, although the patient recovered to baseline prior to completion of the bolus. Subsequent serial neurologic exams determined he was at his neurologic baseline. Due to the witnessed possible seizure activity, and the witnessed possible seizure activity during the event that resulted in his hospitalization, he was placed on Keppra [address] and brain MRI revealed no acute pathology. Repeat EKG and troponins were unchanged. Additionally, cardiology was consulted to evaluate the patient's syncopal diathesis, orthostatic dysfunction, and hypotension; cardiology concurred with the withholding of home anti- hypertensives. The overall picture was one of multisystem atrophy accounting for both his Parkinsonian and autonomic dysfunction, but no definitive diagnosis could be given, and the patient's independent GI pathology requires followup and surveillance. The patient was discharged to SNF on 10/08/17 with instructions to continue use of home Sinemet and Lexapro, to discontinue use of other home medications as they may have contributed to his symptoms, and to continue use of inpatient Keppra, Protonix, Miralax, Jacqueline-colace, and to complete his course of Levaquin. He was given referrals for 1 week followup with PCP, GI, Neurology, and Cardiology. Date of Discharge: 10/08/17 Minutes to complete discharge: 40 Discharge Summary Reason For Visit: ANEMIA Current Active Problems Anemia (Acute) Gastric cardia ulcer (Acute) Liver function test abnormality (Acute) Syncope (Acute) Orthostatic hypotension dysautonomic syndrome (Chronic) Parkinson disease (Chronic) Condition: Stable - Instructions Diet, Activity, Other Instructions: You were hospitalized for losing consciousness and passing bloody stool. During your hospitalization, you were given fluids to improve your ability to maintain consciousness. You were found to be anemic due to blood loss and given two blood transfusions, which improved your anemia and also aided your ability to maintain consciousness. You underwent a procedure called endoscopic gastroduodenoscopy which found ulcers in your stomach. These ulcers were not actively bleeding. You were also noted to have a urinary tract infection and were given antibiotics to treat it. During your hospitalization, you had a brief episode during which your blood pressure dropped, you became confused, and you had abnormal movements that might have constituted a seizure. We repeated CT scan of your head and performed an MRI of your brain, both of which were normal. You were given a medication to prevent future seizure-like activities. You are being discharged to a rehabilitation facility to assist in your recover. Referrals You have been given referrals for followup with your primary care provider, Dr. Galan, your it audit manager, Dr. Mccormack, your in-hospital software applications architect, Dr. Kailash Campos, and your in-hospital neurologist Dr. Avendaño. Medications Some of your home medications may have contributed to your symptoms. Please resume taking your home Sinemet and Lexapro as directed; otherwise, do not take your regular home medications. You are being given the following prescriptions: Levaquin, an antibiotic, to take for 3 days following discharge Keppra, a medication to prevent seizures, 7 days supply Protonix, a medication to assist in healing your ulcers, 7 days supply Miralax, a medication to relieve constipation, 7 days supply. Please do not take your Miralax and Levaquin together Jacqueline-colace, a medication to relieve constipation, 7 days supply In your followup appointments, your doctors will evaluate your need to take these medications in the future, and which of your previous home medications you should resume using. Medical recommendations Please drink plenty of water. Please move from lying or seated positions to standing slowly and carefully. Please take your antibiotic, Levaquin, as directed, to completion. Please take Keppra, Protonix, Miralax, and Jacqueline-colace as directed and keep all of your followup appointments. Please resume using home Sinemet and Lexapro, otherwise discontinue use of your other previous home medications. If you experience any falls, loss of consciousness, blood in your stool, blood in your urine, seizure, or any other new or worsening symptoms, please return to the Emergency Department immediately. Referrals: Hiram Campos DO [Staff Physician] - 1 Week Ambrose Avendaño MD [Staff Physician] - 1 Week Iveth Mccormack MD [Non Staff, Medical] - 1 Week Vin Galan MD [Staff Physician] - 1 Week Disposition: [facility]ARE [facility]ILITY - Home Medications Comprehensive Discharge Medication List: Ambulatory Orders Carbidopa/Levodopa 25/100 [Sinemet 25/100 -] 1 each PO TID tablet 10/08/17 Escitalopram Oxalate [Lexapro -] 10 mg PO DAILY tablet 10/08/17 Pantoprazole Sodium [Protonix -] 40 mg PO BID tablet.ec 10/08/17 Polyethylene Glycol 3350 [Miralax 119 gm Btl -] 17 gm PO BID bottle 10/08/17 Sennosides/Docusate Sodium [Pericolace -] 1 tablet PO BID tablet 10/08/17 levETIRAcetam [Keppra -] 500 mg PO BID tablet 10/08/17 levoFLOXacin [Levaquin -] 500 mg PO DAILY tablet 10/08/17 This patient is new to me today: No Emergency Visit: No Critical Care patient: No - Discharge Referral Referred to [facility] Yes Physician Referral: Justino Campos DO (GI)
== END 2017-10-08 16:00 | DRG 56 ==
LOC: JER 14:53 → JERBED 20:43 → J4W 21:39
PROVIDERS: ADMIT Internal Medicine; ATTEND Internal Medicine
PROC: 30233N1 Transfusion of Nonautologous Red Blood Cells into Peripheral Vein, Percutaneous Approach (ICD-10-PCS; 2017-10-02)
PROC: 0DJ08ZZ Inspection of Upper Intestinal Tract, Via Natural or Artificial Opening Endoscopic (ICD-10-PCS; principal; 2017-10-03 17:00)
DX: G90.3 Multi-system degeneration of the autonomic nervous system (principal); K25.4 Chronic or unspecified gastric ulcer with hemorrhage; I42.9 Cardiomyopathy, unspecified; N39.0 Urinary tract infection, site not specified; N17.9 Acute kidney failure, unspecified; D62 Acute posthemorrhagic anemia; K22.10 Ulcer of esophagus without bleeding; G20 Parkinson's disease; N40.0 Benign prostatic hyperplasia without lower urinary tract symptoms; G30.9 Alzheimer's disease, unspecified; F02.80 Dementia in other diseases classified elsewhere, unspecified severity, without behavioral disturbance, psychotic disturbance, mood disturbance, and anxiety; R41.82 Altered mental status, unspecified; I95.9 Hypotension, unspecified; R94.5 Abnormal results of liver function studies; R29.810 Facial weakness; I11.0 Hypertensive heart disease with heart failure; K59.00 Constipation, unspecified; R56.9 Unspecified convulsions; K44.9 Diaphragmatic hernia without obstruction or gangrene; T88.7XXA Unspecified adverse effect of drug or medicament, initial encounter; K21.0 Gastro-esophageal reflux disease with esophagitis; Z79.1 Long term (current) use of non-steroidal anti-inflammatories (NSAID)
CPT/HCPCS: 36415; 36430; 36511; 70450-TC; 70551-TC; 71045-TC-FY; 76705-TC; 80048; 80053; 80076; 81003; 81015; 82272; 82378; 82550; 82728; 82962; 82977; 83010; 83516; 83540; 83550; 83605; 83615; 84484; 85025; 85027; 85044; 85610; 85730; 86038; 86704; 86706; 86708; 86803; 86850; 86900; 86901; 86922; 87086; 87186; 87340; 93005; 93010; 94760; 95816; 97116-GP; 97162-GP; 99285-25; J7030; P9038; P9058

== ENCOUNTER 2018-06-24 18:25 | Inpatient (IN) | payer OTHER ==
--- NOTE | 2018-06-24 19:13 | PDOC ---
Rapid Medical Evaluation Chief Complaint: Back Pain Time Seen by Provider: 06/24/18 19:10 Medical Evaluation: Allergies Allergy/AdvReac Type Severity Reaction Status Date / Time No Known Allergies Allergy Verified 06/24/18 19:10 06/24/18 19:10 I have performed a brief in-person evaluation of this patient. The patient presents with a chief complaint of:urinary frequency and back pain with vomiting Pertinent physical exam findings: slumped in chair NAD I have ordered the following:UA and cardiac work up The patient will proceed to the ED for further evaluation. Discharge Disposition - Diagnosis Back pain, Vomiting - Referrals - Patient Instructions - Post Discharge Activity
--- NOTE | 2018-06-24 20:13 | PDOC ---
Attending Attestation - HPI HPI: 06/24/18 21:04 The patient is a 71 YOM with a PMH of Parkinson's disease, orthostatic and autonomic dysfuction, and syncope who presents to the ED with catatonic state, urinary urgency, confusion, and right arm pain. Patient returned from [place] less than a week ago. Patient was seen by Dr. Galan today who recommended she come to the ER for further evaluation. Patient is unable to provide further history. Allergies: NKDA Surgeries: None reported Social History: No toxic habits. - Physicial Exam PE: 06/24/18 21:08 Agree with resident's exam. <Mia Chang - Last Filed: 06/24/18 22:29> - Resident Resident Name: Shreyas Christian - ED Attending Attestation I have performed the following: I have examined & evaluated the patient, The case was reviewed & discussed with the resident, I agree w/resident's findings & plan - Medical Decision Making 06/24/18 22:40 72-year-old male sent in for admission by his PMD due to worsening parkinsonian symptoms Patient complains of right arm pain Plan for ultrasound of the right upper extremity due to recent travel Urinalysis is consistent with mild urinary tract infection Plan for admission to medical service <Vicky Shaffer - Last Filed: 06/24/18 22:41>
[2018-06-24 20:23] LABS: BASO % 0.7 % (0-2.0); EOS % 2.1 % (0-4.5); HEMATOCRIT 30.2 % (35.4-49); HEMOGLOBIN 9.9 GM/dL (11.7-16.9); LYMPH % 28.8 % (8-40); MCHC 32.7 g/dl (32.0-35.9); MEAN CELL VOLUME 88.4 fl (80-96); MEAN PLT VOLUME 7.8 fl (7.5-11.1); MONO % 7.2 % (3.8-10.2); NEUT % 61.2 % (42.8-82.8); PLATELET COUNT 272 K/MM3 (134-434); RBC 3.42 M/mm3 (4.00-5.60); RDW 14.8 % (11.9-15.9); WHITE BLOOD COUNT 6.9 K/mm3 (4.0-10.0)
[2018-06-24 20:39] LABS: INR 1.13 (0.83-1.09); PROTHROMBIN TIME (PATIENT) 13.3 SEC (9.7-13.0)
[2018-06-24 20:44] LABS: ALBUMIN 3.2 g/dl (3.4-5.0); ALK PHOS 136 U/L (45-117); ANION GAP 9 MMOL/L (8-16); BILIRUBIN,TOTAL 0.2 mg/dL (0.2-1); BLOOD UREA NITROGEN 23 mg/dL (7-18); CALCIUM 8.3 mg/dL (8.5-10.1); CHLORIDE 108 mmol/L (98-107); CO2 26 mmol/L (21-32); CREATININE 1.3 mg/dL (0.55-1.3); GLUCOSE,RANDOM 97 mg/dL (74-106); POTASSIUM 4.3 mmol/L (3.5-5.1); SGOT/AST 38 U/L (15-37); SGPT/ALT 18 U/L (13-61); SODIUM 143 mmol/L (136-145); TOT PROT 6.6 g/dl (6.4-8.2)
--- NOTE | 2018-06-24 20:48 | PDOC ---
History of Present Illness - General Chief Complaint: Urinary Problem Stated Complaint: BACK PAIN Time Seen by Provider: 06/24/18 19:10 - History of Present Illness Initial Comments: 06/24/18 20:49 71 y/o M w/ PMHx Parkinson's disease and long standing orthostatic and other autonomic dysfunction and recurrent syncopal episodes, who presented to the ED with catatonic state, urinary frequency, fever and arm pain. Recently flew from [facility] on (4h flight) Saw PCP Dr. Galan today who sent him to the ER. 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) COPD: No Disorders: Yes (bph) HTN: Yes Seizures: No - Surgical History Cardiac Surgery: Yes ("loop") - Suicide/Smoking/Psychosocial Hx Smoking History: Never smoked Have you smoked in the past 12 months: No Number of Cigarettes Smoked Daily: 0 Hx Alcohol Use: No Drug/Substance Use Hx: No Substance Use Type: None Hx Substance Use Treatment: No Review of Systems - Review of Systems Able to Perform ROS?: Yes Is the patient limited Uzbek proficient: No Constitutional: Yes: Weakness HEENTM: No: Symptoms Reported Respiratory: No: Symptoms reported Cardiac (ROS): No: Symptoms Reported ABD/GI: No: Symptoms Reported : Yes: See HPI Musculoskeletal: Yes: See HPI, Muscle Pain (right arm), Muscle Weakness Neurological: Yes: See HPI All Other Systems: Reviewed and Negative *Physical Exam - Vital Signs Last Vital Signs Temp Pulse Resp BP Pulse Ox 99.9 F H 113 H 17 98/65 98 06/24/18 19:10 06/24/18 19:10 06/24/18 19:10 06/24/18 19:10 06/24/18 19:10 - Physical Exam General Appearance: Yes: Thin HEENT: positive: EOMI, MANDO Respiratory/Chest: positive: Lungs Clear, Normal Breath Sounds. negative: Chest Tender, Respiratory Distress Cardiovascular: positive: Regular Rhythm, S1, S2, Tachycardia Gastrointestinal/Abdominal: positive: Normal Bowel Sounds, Flat, Soft. negative : Tender Extremity: positive: Other (tender right arm) Integumentary: positive: Normal Color, Dry, Warm Neurologic: positive: Alert. negative: Normal Mood/Affect (blunted affect) ED Treatment Course - LABORATORY CBC & Chemistry Diagram: 06/24/18 19:54 06/24/18 19:51 - ADDITIONAL ORDERS Additional order review: Laboratory Results 06/24/18 06/24/18 06/24/18 19:54 19:51 19:51 PT with INR 13.30 H INR 1.13 H Sodium 143 Potassium 4.3 Chloride 108 H Carbon Dioxide 26 Anion Gap 9 BUN 23 H Creatinine 1.3 Creat Clearance w eGFR 54.42 Random Glucose 97 Lactic Acid 1.8 Calcium 8.3 L Total Bilirubin 0.2 AST 38 H ALT 18 Alkaline Phosphatase 136 H Troponin I 0.02 Total Protein 6.6 Albumin 3.2 L - RADIOLOGY Radiology Studies Ordered: Category Date Time Status CHEST X-RAY PORTABLE* [RAD] Stat Radiology 06/24/18 19:56 Taken Medical Decision Making - Medical Decision Making 06/24/18 21:19 EKG: Normal sinus rhythm. Full septic workup ordered. Possible UTI vs DVT/PE 06/24/18 22:20 urine positive for UTI. Will treat with Ceftazidime which the bacteria was sentitive to last micro. Will send the patient to r/o dvt by duplex due to recent travel and arm pain. Will admit *DC/Admit/Observation/Transfer Diagnosis at time of Disposition: Back pain, Vomiting, UTI (urinary tract infection) - Discharge Dispostion Decision to Admit order: Yes - Referrals Referrals: Vin Galan MD [Primary Care Provider] - - Patient Instructions - Post Discharge Activity
[2018-06-24] MEDS ORDERED: SODIUM CHLORIDE 1,000 ML IV STA (20:50)
[2018-06-24 21:20] LABS: EPI CELLS 2.7 /HPF (0-5); URINE APPEARANCE CLEAR; URINE BACTERIA 6.3 /hpf (NEGATIVE); URINE BILIRUBIN NEGATIVE (NEGATIVE); URINE CASTS 21 /hpf (0-8); URINE COLOR DK YELLOW; URINE GLUCOSE (UA) NEGATIVE (NEGATIVE); URINE KETONE 1+ (NEGATIVE); URINE LEUK ESTERASE 1+ (NEGATIVE); URINE NITRITE NEGATIVE (NEGATIVE); URINE PROTEIN 1+ (NEGATIVE); URINE RBC 6 /hpf (0-4); URINE WBC 14 /hpf (0-5)
[2018-06-24] MEDS ORDERED: cefTAZidime PENTAHYDRATE 1 GM/50ML PRE-DOCKED (RESTRICTED TO ID) IVPB ONE (22:04)
--- NOTE | 2018-06-25 11:47 | EKG ---
Test Reason : Blood Pressure : / mmHG Vent. Rate : 081 BPM Atrial Rate : 081 BPM P-R Int : 146 ms QRS Dur : 084 ms QT Int : 364 ms P-R-T Axes : 082 034 009 degrees QTc Int : 422 ms POOR DATA QUALITY, INTERPRETATION MAY BE ADVERSELY AFFECTED NORMAL SINUS RHYTHM NORMAL ECG WHEN COMPARED WITH ECG OF 07-OCT-2017 12:55, PREMATURE ATRIAL COMPLEXES ARE NO LONGER PRESENT T WAVE INVERSION NOW EVIDENT IN INFERIOR LEADS Confirmed by CONNIE HAINES MD ([id number]) on 06/25/2018 11:47:27 AM Referred By: Confirmed By:CONNIE HAINES MD
[2018-06-25] MEDS ORDERED: BENZTROPINE MESYLATE 0.5 MG TABLET (FP) PO SCH (12:00)
[2018-06-25] MEDS ORDERED: PATIENT'S OWN MEDICATION (NON-FORMULARY) (Linaclotide [Linzess] 72 MCG) PO SCH (12:00)
[2018-06-25] MEDS ORDERED: TAMSULOSIN HCL 0.4 MG CAP ONE (13:13)
[2018-06-25] MEDS ORDERED: CARBIDOPA/LEVODOPA 25/100 TABLET (FP) ONE (13:15)
[2018-06-25] MEDS: TAMSULOSIN HCL 0.4 MG CAP PO SCH (13:16)
[2018-06-25] MEDS: DEXTROSE 5%-0.45% SALINE 1,000 ML IV SCH (13:16)
[2018-06-25] MEDS: CARBIDOPA/LEVODOPA 25/100 TABLET (FP) PO SCH ×2 (13:16→23:11)
--- NOTE | 2018-06-25 14:08 | CONSULT ---
Consult - text type - Consultation Consultation Note: NEUROLOGY CONSULT APPRECIATED: Events reviewed and discussed with staff and MARIA G Chandra. at bedside This 72 yo RH man lives with his . PMHX includes diagnosis Parkinson 's Disease x 5 years, previously followed by Dr. Garcia. Ambulates with walker Maintained on Carbidopa/Levodopa 25/100 TID (8,2,8), benztropine 0.5 mg BID, linaclotide, megestrol 20 mg BID, tamsulosin. Reports of "many years" of urinary incontinence per . Here today for recurrent falls, low blood pressure, urinary frequency, fever and flank pain. Currently receiving IVF and Ceftaz. Last dose of Sinemet given approximately 1:40pm after lunch. Pt does have feeling of "wearing off" at times. Also reports nocturnal "shooting pains" in hands that awaken him from sleep. MRI of brain (10/07/17, reviewed): Mod atrophy. Periventricular ischemic changes. Normal size ventricles without evidence of hydrocephalus. EEG 10/14/17 (noted while on keppra): no evidence of seizure activity MCV 88.4; UA WBC= 14 GERBER: T99.9 BP 98/65 Cor reg. No bruit. Restricted ROM of neck in all directions. Diffuse spinal tenderness. Neg SLR. Early contractures of elbows and knees R > L. NEURO: Mentation/Speech: Periods of staring. OX "medical facility." . 2018 [facility]UMP -> PMURT. 03/26 recall @3. CNII-CNXII: EOM intact. Full arenas appreciated. No facial. Reduced rapid tongue mov'ts. Gag ok. + glabella. Motor: No drift. Bradykinetic. Rhythmic tremor R hand. Rigidity present elbows, knees R >L. ++ Cogwheel L>R. Decreased AVERY's. Reflexes brisk. Plantars silent. Coordination: No FTN dystaxia. Sensation:Reduced vibration to toes and feet. Gait: Flexed, shuffling, festinating. Impression: 1. Mild B/L cerebral dysfunction (OMS) worsened by Toxic-Metabolic Encephalopathy (UTI?) 2. R/O Cervical Myelopathy 3. Extrapyramdial features c/w Parkinson's disease 4. Autonomic dysfunction/Orthostatic Hypotension 5. Nocturnal paresthesia likely Restless Limb Syndrome (RLS) Suggest: Continue antibiotics and hydration Orthostatic BP's, (may require addition of midodrine 5 mg BID) Order MRI of C spine (C-) Order B12, TSH, RPR, Iron studies Continue L-Dopa 25/100 at 7-12-5. Once BP stabilizes, would consider increased dosing to 1.5 tabs TID. D/C benztropine PT eval for gait training and vs. early contractures field services manager eval for home health services or advanced placement Thank you very much, Leodan Lucero MD
[2018-06-25] MEDS ORDERED: cefTAZidime PENTAHYDRATE 1 GM/50ML PRE-DOCKED (RESTRICTED TO ID) IVPB SCH (18:00)
[2018-06-25] MEDS ORDERED: CEFTAZIDIME PENTAHYDRATE 1 GM in DEXTROSE 5%-WATER - 50 ML IVPB SCH (18:00)
--- NOTE | 2018-06-25 18:52 | CON.ID ---
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 History of Recent Travel: No Home Medications - Allergies Allergies/Adverse Reactions: Allergies Allergy/AdvReac Type Severity Reaction Status Date / Time No Known Allergies Allergy Verified 06/24/18 19:10 - Home Medications Home Medications: Ambulatory Orders Carbidopa/Levodopa 25/100 [Sinemet 25/100 -] 1 each PO TID tablet 10/08/17 Benztropine Mesylate 0.5 mg PO BID 06/24/18 Linaclotide [Linzess] 72 mcg PO DAILY 06/24/18 Megestrol Acetate [Megace -] 20 mg PO BID 06/24/18 Tamsulosin HCl [Flomax] 0.4 mg PO DAILY 06/24/18 Physical Exam Vital Signs: Vital Signs Temperature 98.7 F 06/25/18 17:50 Pulse Rate 78 06/25/18 17:50 Respiratory Rate 18 06/25/18 17:50 Blood Pressure 169/98 06/25/18 17:50 O2 Sat by Pulse Oximetry (%) 98 06/25/18 17:50 Labs: CBC, BMP 06/24/18 19:54 06/24/18 19:51
--- NOTE | 2018-06-25 22:37 | HP ---
Admitting History and Physical - Admission History of Present Illness: This 72 yo male w/ PMH significant for Parkinson's Disease(5 years) and ambulates with a walker. Pt presented to the ER after recently flying back from [facility] w/ complaints of urinary frequency, recurrent falls/syncopal episodes. As per medical record pt also had fevers and flank pain. It was noted that the pt appeared to be in a catonic state upon arrival in ER. In the ER pt was found to be febrile and hypotensive. 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 History of Recent Travel: No Home Medications - Allergies Allergies/Adverse Reactions: Allergies Allergy/AdvReac Type Severity Reaction Status Date / Time No Known Allergies Allergy Verified 06/24/18 19:10 - Home Medications Home Medications: Ambulatory Orders Carbidopa/Levodopa 25/100 [Sinemet 25/100 -] 1 each PO TID tablet 10/08/17 Linaclotide [Linzess] 72 mcg PO DAILY 06/24/18 Megestrol Acetate [Megace -] 20 mg PO BID 06/24/18 Tamsulosin HCl [Flomax -] 0.4 mg PO DAILY 06/24/18 Acetaminophen [Tylenol .Regular Strength -] 650 mg PO Q6H PRN tablet 07/02/18 Carbidopa/Levodopa *Cr* 50/200 [Sinemet *Cr* 50/200 -] 1 combo PO TID@0700,1200, 1700 tablet.er 07/02/18 Docusate Sodium [Colace -] 100 mg PO TID capsule 07/02/18 Donepezil HCl [Aricept -] 5 mg PO DAILY tablet 07/02/18 Family Disease History - Family Disease History Family History: Unable to Obtain Review of Systems Unable to obtain ROS, reason: Parkinson's disease Physical Examination Vital Signs: Vital Signs Temperature 98.7 F 06/25/18 17:50 Pulse Rate 78 06/25/18 17:50 Respiratory Rate 18 06/25/18 17:50 Blood Pressure 169/98 06/25/18 17:50 O2 Sat by Pulse Oximetry (%) 98 06/25/18 17:50 Constitutional: Yes: No Distress HENT: Yes: WNL Neck: Yes: WNL, Supple Cardiovascular: Yes: WNL, Regular Rate and Rhythm Respiratory: Yes: WNL, Regular, CTA Bilaterally Gastrointestinal: Yes: WNL, Normal Bowel Sounds, Soft Musculoskeletal: Yes: WNL Extremities: Yes: WNL Edema: No Neurological: Yes: WNL, Alert, Oriented ...Motor Strength: WNL Labs: CBC, BMP 06/24/18 19:54 06/24/18 19:51 Problem List - Problems (1) Syncope Assessment/Plan: Admitted to tele Serial cpk/troponin Echo Cardio consult ?Due to orthostatic changes Cont IVF Code(s): R55 - SYNCOPE AND COLLAPSE Qualifiers: Syncope type: unspecified Qualified Code(s): R55 - Syncope and collapse (2) Sepsis Assessment/Plan: Due to UTI Cont IV antibxs ID consult Cont IVF Follow cultures Code(s): A41.9 - SEPSIS, UNSPECIFIED ORGANISM (3) Parkinson disease Assessment/Plan: Cont sinemet Neuro consult Check MRI C-spine Code(s): G20 - PARKINSON'S DISEASE (4) Orthostatic hypotension Code(s): I95.1 - ORTHOSTATIC HYPOTENSION (5) Anemia Code(s): D64.9 - ANEMIA, UNSPECIFIED
[2018-06-25] MEDS ORDERED: PT OWN MED DRAWER 7, Y5N ONE (23:07)
[2018-06-25] MEDS: HEPARIN NA (PORCINE) 5,000 UNITS/ML 1ML VIAL SQ SCH (23:10)
[2018-06-25] MEDS: MEGESTROL ACETATE 20 MG TABLET PO SCH (23:11)
[2018-06-26 01:30] VITALS: BMI 21.7
[2018-06-26] MEDS ORDERED: DEXTROSE 5%-WATER - 50 ML IVPB ONE ×3 (01:45→17:16)
[2018-06-26] MEDS ORDERED: PIPERACILLIN/TAZOBACTAM 3.375 GM VIAL IVPB ONE ×3 (01:45→17:16)
[2018-06-26] MEDS: PIPERACILLIN/TAZOB 3.375 GM 3.375 GM in DEXTROSE 5%-WATER - 50 ML IVPB SCH ×3 (02:30→17:35)
[2018-06-26] MEDS: CARBIDOPA/LEVODOPA 25/100 TABLET (FP) PO SCH ×3 (06:45→21:49)
[2018-06-26 07:27] LABS: BASO % 0.3 % (0-2.0); EOS % 2.5 % (0-4.5); HEMATOCRIT 30.4 % (35.4-49); LYMPH % 17.9 % (8-40); MCH 28.9 pg (25.7-33.7); MEAN CELL VOLUME 87.5 fl (80-96); MEAN PLT VOLUME 7.6 fl (7.5-11.1); NEUT % 73.3 % (42.8-82.8); PLATELET COUNT 268 K/MM3 (134-434); RBC 3.47 M/mm3 (4.00-5.60); RDW 14.5 % (11.9-15.9); WHITE BLOOD COUNT 6.6 K/mm3 (4.0-10.0)
[2018-06-26 08:16] LABS: ALBUMIN 2.6 g/dl (3.4-5.0); ALK PHOS 131 U/L (45-117); BILIRUBIN,TOTAL 0.6 mg/dL (0.2-1); BLOOD UREA NITROGEN 14 mg/dL (7-18); CALCIUM 8.5 mg/dL (8.5-10.1); CHLORIDE 108 mmol/L (98-107); CO2 27 mmol/L (21-32); CREATININE 0.8 mg/dL (0.55-1.3); GLUCOSE,RANDOM 96 mg/dL (74-106); POTASSIUM 3.9 mmol/L (3.5-5.1); SGOT/AST 56 U/L (15-37); SGPT/ALT 9 U/L (13-61); SODIUM 140 mmol/L (136-145); TOT PROT 5.9 g/dl (6.4-8.2)
[2018-06-26 08:26] LABS: ANION GAP 6 MMOL/L (8-16)
[2018-06-26] MEDS: TAMSULOSIN HCL 0.4 MG CAP PO SCH (08:55)
[2018-06-26] MEDS: HEPARIN NA (PORCINE) 5,000 UNITS/ML 1ML VIAL SQ SCH ×2 (09:01→21:49)
[2018-06-26] MEDS: MEGESTROL ACETATE 20 MG TABLET PO SCH ×2 (09:01→21:49)
[2018-06-26] MEDS: DEXTROSE 5%-0.45% SALINE 1,000 ML IV SCH (12:10)
[2018-06-26] MEDS: ACETAMINOPHEN 325 MG TABLET (FP) PO PRN (17:44)
[2018-06-27] MEDS ORDERED: PIPERACILLIN/TAZOBACTAM 3.375 GM VIAL IVPB ONE ×3 (00:47→17:11)
[2018-06-27] MEDS ORDERED: DEXTROSE 5%-WATER - 50 ML IVPB ONE ×3 (00:47→17:11)
[2018-06-27] MEDS: ACETAMINOPHEN 325 MG TABLET (FP) PO PRN (00:53)
[2018-06-27] MEDS: PIPERACILLIN/TAZOB 3.375 GM 3.375 GM in DEXTROSE 5%-WATER - 50 ML IVPB SCH ×3 (01:14→17:30)
--- NOTE | 2018-06-27 02:02 | PN ---
Progress Note, Physician History of Present Illness: Pt seen and examined 06/26/18 however note is being entered now - Current Medication List Current Medications: Active Medications Acetaminophen (Tylenol -) 650 mg PO Q6H PRN PRN Reason: FEVER Last Admin: 06/27/18 00:53 Dose: 650 mg Carbidopa/Levodopa (Sinemet 25/100 -) 1 each PO TID [facility] Last Admin: 06/26/18 21:49 Dose: 1 each Heparin Sodium (Porcine) (Heparin -) 5,000 unit SQ BID [facility] Last Admin: 06/26/18 21:49 Dose: 5,000 unit Dextrose/Sodium Chloride (D5-1/2ns -) 1,000 mls @ 75 mls/hr IV ASDIR [facility] Last Admin: 06/26/18 12:10 Dose: 75 mls/hr Piperacillin Sod/Tazobactam (Sod 3.375 gm/ Dextrose) 50 mls @ 100 mls/hr IVPB Q8H-IV MIC[facility]; Protocol Last Admin: 06/27/18 01:14 Dose: 100 mls/hr Megestrol Acetate (Megace -) 20 mg PO BID [facility] Last Admin: 06/26/18 21:49 Dose: 20 mg Non-Formulary Medication (Linaclotide [Linzess]) 72 mcg PO DAILY [facility] Tamsulosin HCl (Flomax -) 0.4 mg PO DAILY@0830 [facility] Last Admin: 06/26/18 08:55 Dose: 0.4 mg - Objective Vital Signs: Vital Signs Temperature 99 F 06/26/18 21:15 Pulse Rate 86 06/26/18 21:15 Respiratory Rate 18 06/26/18 21:15 Blood Pressure 124/76 06/26/18 21:15 O2 Sat by Pulse Oximetry (%) 100 06/26/18 09:00 Neck: Yes: WNL, Supple Cardiovascular: Yes: WNL, Regular Rate and Rhythm Respiratory: Yes: WNL, Regular, CTA Bilaterally Gastrointestinal: Yes: WNL, Normal Bowel Sounds, Soft Edema: No Labs: CBC, BMP 06/26/18 06:38 06/26/18 06:38 INR, PTT INR 1.13 (0.83-1.09) H 06/24/18 19:51 Problem List - Problems (1) UTI (urinary tract infection) Assessment/Plan: Cont IV zosyn Monitor BC and urine cultres Code(s): N39.0 - URINARY TRACT INFECTION, SITE NOT SPECIFIED (2) Parkinson disease Assessment/Plan: Cont sinemet Awaiting MRI C-spine to r/o cervical myelopathy Pt will need PT eval Code(s): G20 - PARKINSON'S DISEASE (3) BPH (benign prostatic hyperplasia) Assessment/Plan: Cont flomax Code(s): N40.0 - BENIGN PROSTATIC HYPERPLASIA WITHOUT LOWER URINRY TRACT SYMP (4) HTN (hypertension) Assessment/Plan: BP fluctuating Pt is not on any antihypertensive meds Code(s): I10 - ESSENTIAL (PRIMARY) HYPERTENSION
[2018-06-27 04:13] LABS: SERUM IRON SATURATION 7 % (15-55); TOTAL IRON BINDING CAPACITY 255 ug/dL (250-450); UIBC 236 ug/dL (111-343)
[2018-06-27] MEDS: CARBIDOPA/LEVODOPA 25/100 TABLET (FP) PO SCH ×3 (06:17→22:54)
[2018-06-27] MEDS: TAMSULOSIN HCL 0.4 MG CAP PO SCH (09:28)
[2018-06-27] MEDS: MEGESTROL ACETATE 20 MG TABLET PO SCH ×2 (09:28→22:54)
[2018-06-27] MEDS: HEPARIN NA (PORCINE) 5,000 UNITS/ML 1ML VIAL SQ SCH ×2 (09:28→22:55)
[2018-06-27] MEDS: DEXTROSE 5%-0.45% SALINE 1,000 ML IV SCH (13:49)
--- NOTE | 2018-06-27 14:29 | PN ---
Progress Note, Physician History of Present Illness: patient doing well family n room patient now awake and aler still abit drowsy history d/w sister and - Current Medication List Current Medications: Active Medications Acetaminophen (Tylenol -) 650 mg PO Q6H PRN PRN Reason: FEVER Last Admin: 06/27/18 00:53 Dose: 650 mg Carbidopa/Levodopa (Sinemet 25/100 -) 1 each PO TID [facility] Last Admin: 06/27/18 13:49 Dose: 1 each Heparin Sodium (Porcine) (Heparin -) 5,000 unit SQ BID [facility] Last Admin: 06/27/18 09:28 Dose: 5,000 unit Dextrose/Sodium Chloride (D5-1/2ns -) 1,000 mls @ 75 mls/hr IV ASDIR [facility] Last Admin: 06/27/18 13:49 Dose: 75 mls/hr Piperacillin Sod/Tazobactam (Sod 3.375 gm/ Dextrose) 50 mls @ 100 mls/hr IVPB Q8H-IV [facility]; Protocol Last Admin: 06/27/18 09:29 Dose: 100 mls/hr Megestrol Acetate (Megace -) 20 mg PO BID [facility] Last Admin: 06/27/18 09:28 Dose: 20 mg Non-Formulary Medication (Linaclotide [Linzess]) 72 mcg PO DAILY [facility] Tamsulosin HCl (Flomax -) 0.4 mg PO DAILY@0830 [facility] Last Admin: 06/27/18 09:28 Dose: 0.4 mg - Objective Vital Signs: Vital Signs Temperature 98.2 F 06/27/18 08:53 Pulse Rate 75 06/27/18 08:53 Respiratory Rate 16 06/27/18 08:53 Blood Pressure 158/93 06/27/18 08:53 O2 Sat by Pulse Oximetry (%) 99 06/27/18 08:51 Constitutional: Yes: No Distress, Calm Cardiovascular: Yes: Regular Rate and Rhythm Respiratory: Yes: Regular, CTA Bilaterally Gastrointestinal: Yes: Normal Bowel Sounds, Soft Musculoskeletal: Yes: WNL Extremities: Yes: Other (rigidity on the rt side) Neurological: Yes: Alert, Other Psychiatric: Yes: Other Labs: CBC, BMP 06/26/18 06:38 06/26/18 06:38 INR, PTT INR 1.13 (0.83-1.09) H 06/24/18 19:51 Assessment/Plan 72 yo RH man lives with his . PMHX includes diagnosis Parkinson's Disease. Ambulates with walker admitted for recurrent falls, low blood pressure , urinary frequency, fever and flank pain. patient started on iv abx sepsis fever falls urinary incontinence weakness plan will continue abx hydration neurology on case rest as per the team
--- NOTE | 2018-06-27 14:35 | PN ---
Progress Note, Physician History of Present Illness: patient stable no new issues much more awake and alert looks better plan to get mri - Current Medication List Current Medications: Active Medications Acetaminophen (Tylenol -) 650 mg PO Q6H PRN PRN Reason: FEVER Last Admin: 06/27/18 00:53 Dose: 650 mg Carbidopa/Levodopa (Sinemet 25/100 -) 1 each PO TID [facility] Last Admin: 06/27/18 13:49 Dose: 1 each Heparin Sodium (Porcine) (Heparin -) 5,000 unit SQ BID [facility] Last Admin: 06/27/18 09:28 Dose: 5,000 unit Dextrose/Sodium Chloride (D5-1/2ns -) 1,000 mls @ 75 mls/hr IV ASDIR [facility] Last Admin: 06/27/18 13:49 Dose: 75 mls/hr Piperacillin Sod/Tazobactam (Sod 3.375 gm/ Dextrose) 50 mls @ 100 mls/hr IVPB Q8H-IV [facility]; Protocol Last Admin: 06/27/18 09:29 Dose: 100 mls/hr Megestrol Acetate (Megace -) 20 mg PO BID [facility] Last Admin: 06/27/18 09:28 Dose: 20 mg Non-Formulary Medication (Linaclotide [Linzess]) 72 mcg PO DAILY [facility] Tamsulosin HCl (Flomax -) 0.4 mg PO DAILY@0830 [facility] Last Admin: 06/27/18 09:28 Dose: 0.4 mg - Objective Vital Signs: Vital Signs Temperature 98.5 F 06/27/18 14:33 Pulse Rate 85 06/27/18 14:33 Respiratory Rate 16 06/27/18 14:33 Blood Pressure 121/85 06/27/18 14:33 O2 Sat by Pulse Oximetry (%) 99 06/27/18 08:51 Constitutional: Yes: No Distress, Calm Cardiovascular: Yes: Regular Rate and Rhythm Respiratory: Yes: Regular, CTA Bilaterally Gastrointestinal: Yes: Normal Bowel Sounds, Soft Musculoskeletal: Yes: WNL Extremities: Yes: Other Neurological: Yes: Alert, Oriented Psychiatric: Yes: Alert, Oriented Labs: CBC, BMP 06/26/18 06:38 06/26/18 06:38 INR, PTT INR 1.13 (0.83-1.09) H 06/24/18 19:51 Assessment/Plan 72 yo RH man lives with his . PMHX includes diagnosis Parkinson's Disease. Ambulates with walker admitted for recurrent falls, low blood pressure , urinary frequency, fever and flank pain. patient started on iv abx sepsis fever falls urinary incontinence weakness plan will continue abx await for repeat urine cx mri rest as per the team and neuro
--- NOTE | 2018-06-27 21:26 | PN ---
Progress Note, Physician History of Present Illness: Pt at bedside and no new complaints - Current Medication List Current Medications: Active Medications Acetaminophen (Tylenol -) 650 mg PO Q6H PRN PRN Reason: FEVER Last Admin: 06/27/18 00:53 Dose: 650 mg Carbidopa/Levodopa (Sinemet 25/100 -) 1 each PO TID [facility] Last Admin: 06/27/18 13:49 Dose: 1 each Heparin Sodium (Porcine) (Heparin -) 5,000 unit SQ BID [facility] Last Admin: 06/27/18 09:28 Dose: 5,000 unit Dextrose/Sodium Chloride (D5-1/2ns -) 1,000 mls @ 75 mls/hr IV ASDIR [facility] Last Admin: 06/27/18 13:49 Dose: 75 mls/hr Piperacillin Sod/Tazobactam (Sod 3.375 gm/ Dextrose) 50 mls @ 100 mls/hr IVPB Q8H-IV [facility]; Protocol Last Admin: 06/27/18 17:30 Dose: 100 mls/hr Megestrol Acetate (Megace -) 20 mg PO BID [facility] Last Admin: 06/27/18 09:28 Dose: 20 mg Non-Formulary Medication (Linaclotide [Linzess]) 72 mcg PO DAILY [facility] Tamsulosin HCl (Flomax -) 0.4 mg PO DAILY@0830 [facility] Last Admin: 06/27/18 09:28 Dose: 0.4 mg - Objective Vital Signs: Vital Signs Temperature 98.0 F 06/27/18 18:00 Pulse Rate 80 06/27/18 18:00 Respiratory Rate 16 06/27/18 18:00 Blood Pressure 157/94 06/27/18 18:00 O2 Sat by Pulse Oximetry (%) 99 06/27/18 08:51 Neck: Yes: WNL, Supple Cardiovascular: Yes: WNL, Regular Rate and Rhythm Respiratory: Yes: WNL, Regular, CTA Bilaterally Gastrointestinal: Yes: WNL, Normal Bowel Sounds, Soft Edema: No Labs: CBC, BMP 06/26/18 06:38 06/26/18 06:38 INR, PTT INR 1.13 (0.83-1.09) H 06/24/18 19:51 Problem List - Problems (1) UTI (urinary tract infection) Assessment/Plan: Cont IV zosyn BC and urine cultre remain negative Code(s): N39.0 - URINARY TRACT INFECTION, SITE NOT SPECIFIED (2) Parkinson disease Assessment/Plan: Cont sinemet Awaiting MRI C-spine to r/o cervical myelopathy Pt will need PT eval Code(s): G20 - PARKINSON'S DISEASE (3) Anemia Assessment/Plan: Monitor H/H Code(s): D64.9 - ANEMIA, UNSPECIFIED (4) BPH (benign prostatic hyperplasia) Assessment/Plan: Cont flomax Code(s): N40.0 - BENIGN PROSTATIC HYPERPLASIA WITHOUT LOWER URINRY TRACT SYMP (5) HTN (hypertension) Assessment/Plan: BP fluctuating Pt is not on any antihypertensive meds Code(s): I10 - ESSENTIAL (PRIMARY) HYPERTENSION
[2018-06-28] MEDS ORDERED: PIPERACILLIN/TAZOBACTAM 3.375 GM VIAL IVPB ONE ×3 (00:58→17:11)
[2018-06-28] MEDS ORDERED: DEXTROSE 5%-WATER - 50 ML IVPB ONE ×3 (00:58→17:11)
[2018-06-28] MEDS: PIPERACILLIN/TAZOB 3.375 GM 3.375 GM in DEXTROSE 5%-WATER - 50 ML IVPB SCH ×3 (01:04→17:18)
[2018-06-28] MEDS: DEXTROSE 5%-0.45% SALINE 1,000 ML IV SCH (05:28)
[2018-06-28] MEDS: CARBIDOPA/LEVODOPA 25/100 TABLET (FP) PO SCH ×3 (05:29→22:03)
[2018-06-28] MEDS: HEPARIN NA (PORCINE) 5,000 UNITS/ML 1ML VIAL SQ SCH ×2 (10:48→22:02)
[2018-06-28] MEDS: TAMSULOSIN HCL 0.4 MG CAP PO SCH (10:48)
[2018-06-28] MEDS: MEGESTROL ACETATE 20 MG TABLET PO SCH ×2 (11:00→22:03)
--- NOTE | 2018-06-28 13:13 | PN ---
Progress Note, Physician History of Present Illness: looks much better no complaints doing well rt hand swelling improving movement improving - Current Medication List Current Medications: Active Medications Acetaminophen (Tylenol -) 650 mg PO Q6H PRN PRN Reason: FEVER Last Admin: 06/27/18 00:53 Dose: 650 mg Carbidopa/Levodopa (Sinemet 25/100 -) 1 each PO TID [facility] Last Admin: 06/28/18 05:29 Dose: 1 each Heparin Sodium (Porcine) (Heparin -) 5,000 unit SQ BID [facility] Last Admin: 06/28/18 10:48 Dose: 5,000 unit Dextrose/Sodium Chloride (D5-1/2ns -) 1,000 mls @ 75 mls/hr IV ASDIR [facility] Last Admin: 06/28/18 05:28 Dose: 75 mls/hr Piperacillin Sod/Tazobactam (Sod 3.375 gm/ Dextrose) 50 mls @ 100 mls/hr IVPB Q8H-IV [facility]; Protocol Last Admin: 06/28/18 10:48 Dose: 100 mls/hr Megestrol Acetate (Megace -) 20 mg PO BID [facility] Last Admin: 06/27/18 22:54 Dose: 20 mg Non-Formulary Medication (Linaclotide [Linzess]) 72 mcg PO DAILY [facility] Tamsulosin HCl (Flomax -) 0.4 mg PO DAILY@0830 [facility] Last Admin: 06/28/18 10:48 Dose: 0.4 mg - Objective Vital Signs: Vital Signs Temperature 98 F 06/28/18 10:45 Pulse Rate 97 H 06/28/18 10:45 Respiratory Rate 20 06/28/18 10:45 Blood Pressure 122/70 06/28/18 10:45 O2 Sat by Pulse Oximetry (%) 97 06/27/18 21:00 Constitutional: Yes: No Distress, Calm Cardiovascular: Yes: S1, S2 Respiratory: Yes: Regular, CTA Bilaterally Gastrointestinal: Yes: Normal Bowel Sounds, Soft Musculoskeletal: Yes: WNL Extremities: Yes: Other (rt hand swollen improving,movement improving) Neurological: Yes: Alert, Oriented Psychiatric: Yes: Alert, Oriented Labs: CBC, BMP 06/26/18 06:38 06/26/18 06:38 INR, PTT INR 1.13 (0.83-1.09) H 06/24/18 19:51 Assessment/Plan 72 yo RH man lives with his . PMHX includes diagnosis Parkinson's Disease. Ambulates with walker admitted for recurrent falls, low blood pressure , urinary frequency, fever and flank pain. patient started on iv abx sepsis fever falls urinary incontinence weakness plan will continue abx await for repeat urine cx mri rest as per the team and neuro
[2018-06-28] MEDS: ACETAMINOPHEN 325 MG TABLET (FP) PO PRN (16:00)
--- NOTE | 2018-06-28 19:45 | PN ---
Progress Note, Physician History of Present Illness: No new complaints - Current Medication List Current Medications: Active Medications Acetaminophen (Tylenol -) 650 mg PO Q6H PRN PRN Reason: FEVER Last Admin: 06/28/18 16:00 Dose: 650 mg Carbidopa/Levodopa (Sinemet 25/100 -) 1 each PO TID [facility] Last Admin: 06/28/18 14:55 Dose: 1 each Heparin Sodium (Porcine) (Heparin -) 5,000 unit SQ BID [facility] Last Admin: 06/28/18 10:48 Dose: 5,000 unit Dextrose/Sodium Chloride (D5-1/2ns -) 1,000 mls @ 75 mls/hr IV ASDIR [facility] Last Admin: 06/28/18 05:28 Dose: 75 mls/hr Piperacillin Sod/Tazobactam (Sod 3.375 gm/ Dextrose) 50 mls @ 100 mls/hr IVPB Q8H-IV [facility]; Protocol Last Admin: 06/28/18 17:18 Dose: 100 mls/hr Megestrol Acetate (Megace -) 20 mg PO BID [facility] Last Admin: 06/28/18 11:00 Dose: 20 mg Non-Formulary Medication (Linaclotide [Linzess]) 72 mcg PO DAILY [facility] Tamsulosin HCl (Flomax -) 0.4 mg PO DAILY@0830 [facility] Last Admin: 06/28/18 10:48 Dose: 0.4 mg - Objective Vital Signs: Vital Signs Temperature 98.9 F 06/28/18 15:00 Pulse Rate 84 06/28/18 15:00 Respiratory Rate 20 06/28/18 15:00 Blood Pressure 127/71 06/28/18 15:00 O2 Sat by Pulse Oximetry (%) 97 06/28/18 09:00 Constitutional: Yes: No Distress Cardiovascular: Yes: WNL, Regular Rate and Rhythm Respiratory: Yes: WNL, Regular, CTA Bilaterally Gastrointestinal: Yes: WNL, Normal Bowel Sounds, Soft Edema: No Labs: CBC, BMP 06/26/18 06:38 06/26/18 06:38 INR, PTT INR 1.13 (0.83-1.09) H 06/24/18 19:51 Problem List - Problems (1) UTI (urinary tract infection) Assessment/Plan: Cont IV zosyn BC and urine cultre remain negative Code(s): N39.0 - URINARY TRACT INFECTION, SITE NOT SPECIFIED (2) Parkinson disease Assessment/Plan: Cont sinemet Awaiting MRI C-spine to r/o cervical myelopathy Pt will need PT eval ?DC planning to STR? Code(s): G20 - PARKINSON'S DISEASE (3) HTN (hypertension) Assessment/Plan: BP fluctuating Pt is not on any antihypertensive meds Code(s): I10 - ESSENTIAL (PRIMARY) HYPERTENSION (4) Anemia Assessment/Plan: Monitor H/H Code(s): D64.9 - ANEMIA, UNSPECIFIED (5) BPH (benign prostatic hyperplasia) Assessment/Plan: Cont flomax Code(s): N40.0 - BENIGN PROSTATIC HYPERPLASIA WITHOUT LOWER URINRY TRACT SYMP (6) CVA (cerebral vascular accident) Code(s): I63.9 - CEREBRAL INFARCTION, UNSPECIFIED Qualifiers: CVA mechanism: unspecified Qualified Code(s): I63.9 - Cerebral infarction, unspecified
[2018-06-29] MEDS ORDERED: PIPERACILLIN/TAZOBACTAM 3.375 GM VIAL IVPB ONE ×3 (01:05→17:13)
[2018-06-29] MEDS ORDERED: DEXTROSE 5%-WATER - 50 ML IVPB ONE ×3 (01:06→17:14)
[2018-06-29] MEDS: PIPERACILLIN/TAZOB 3.375 GM 3.375 GM in DEXTROSE 5%-WATER - 50 ML IVPB SCH ×3 (01:10→17:41)
[2018-06-29] MEDS: CARBIDOPA/LEVODOPA 25/100 TABLET (FP) PO SCH ×3 (06:12→17:40)
[2018-06-29 06:39] LABS: BASO % 0.6 % (0-2.0); EOS % 3.3 % (0-4.5); HEMATOCRIT 29.8 % (35.4-49); HEMOGLOBIN 9.9 GM/dL (11.7-16.9); LYMPH % 34.8 % (8-40); MCH 29.1 pg (25.7-33.7); MCHC 33.3 g/dl (32.0-35.9); MEAN CELL VOLUME 87.4 fl (80-96); MEAN PLT VOLUME 7.5 fl (7.5-11.1); MONO % 6.8 % (3.8-10.2); NEUT % 54.5 % (42.8-82.8); PLATELET COUNT 292 K/MM3 (134-434); RBC 3.41 M/mm3 (4.00-5.60); RDW 14.8 % (11.9-15.9); WHITE BLOOD COUNT 5.2 K/mm3 (4.0-10.0)
[2018-06-29 07:16] LABS: ALBUMIN 2.6 g/dl (3.4-5.0); ALK PHOS 143 U/L (45-117); ANION GAP 6 MMOL/L (8-16); BILIRUBIN,TOTAL 0.3 mg/dL (0.2-1); BLOOD UREA NITROGEN 14 mg/dL (7-18); CALCIUM 8.4 mg/dL (8.5-10.1); CHLORIDE 110 mmol/L (98-107); CO2 27 mmol/L (21-32); GLUCOSE,RANDOM 92 mg/dL (74-106); POTASSIUM 4.2 mmol/L (3.5-5.1); SGOT/AST 88 U/L (15-37); SGPT/ALT 20 U/L (13-61); SODIUM 143 mmol/L (136-145); TOT PROT 5.8 g/dl (6.4-8.2)
[2018-06-29] MEDS ORDERED: PT OWN MED DRAWER 7, Y5N ONE (10:52)
[2018-06-29] MEDS: TAMSULOSIN HCL 0.4 MG CAP PO SCH (11:08)
[2018-06-29] MEDS: HEPARIN NA (PORCINE) 5,000 UNITS/ML 1ML VIAL SQ SCH ×2 (11:09→22:18)
[2018-06-29] MEDS: MEGESTROL ACETATE 20 MG TABLET PO SCH ×2 (11:09→22:18)
--- NOTE | 2018-06-29 11:34 | PN ---
Progress Note (short form) - Note Progress Note: NEUROLOGY PROGRESS: Events reviewed and discussed with staff and MARIA G Chandra. Sister at bedside. Currently on Zoysn and IVF. Pt. Reports he has not been evaluated by P.T. C/O nocturnal R arm "pains" that awaken him from sleep. B12 842, TSh 0.42 RPR nonreactive Blood cx x2 neg. UC x 2 neg. GERBER: T99.5. BP 100-150/60-90s with orthostatic changes. P80s. Restricted ROM of neck in all directions. In diaper. Early contractures of elbows and knees R > L. NEURO: Periods of staring. Mild OMS may be present. Reduced rapid tongue mov'ts. Gag ok. + glabella, snout, grasps Motor: Bradykinetic. Rhythmic tremor R hand. Rigidity present elbows, knees R >L. ++ Cogwheel L>R Impression: 1. Mild B/L cerebral dysfunction (OMS) worsened by Toxic-Metabolic Encephalopathy (UTI?) 2. R/O Cervical Myelopathy 3. Extrapyramdial features c/w Parkinson's disease (PD). 4. Orthostatic Hypotension- PD can be associated with Dysautonomia 5. Nocturnal paresthesia most likely Restless Limb Syndrome (RLS ) (seen in 40-50% of pts with PD). Suggest: Continue antibiotics and hydration Orthostatic BP's, (may require addition of midodrine 5 mg BID) Await MRI of C spine (C-) Start donepezil 5 mg po qam Increase L-Dopa 25/100 to 1.5 tabs (37.5/150) at 7-12-5. If BP allows, would add pramipexole 0.25 mg qhs. PT eval for gait training and vs. early contractures patient services manager eval for home health services or advanced placement Thank you very much, Leodan Lucero MD
[2018-06-29] MEDS: DOCUSATE SODIUM 100 MG CAPSULE (FP) PO SCH ×2 (13:31→22:18)
--- NOTE | 2018-06-29 14:14 | PN ---
Progress Note, Physician History of Present Illness: patient doing well no issues family in the room calm seen by neuro rt hand pain - Current Medication List Current Medications: Active Medications Acetaminophen (Tylenol -) 650 mg PO Q6H PRN PRN Reason: FEVER Last Admin: 06/28/18 16:00 Dose: 650 mg Carbidopa/Levodopa (Sinemet 25/100 -) 1.5 each PO TIDCM [facility] Last Admin: 06/29/18 13:30 Dose: 1.5 each Docusate Sodium (Colace -) 100 mg PO TID [facility] Last Admin: 06/29/18 13:31 Dose: 100 mg Donepezil HCl (Aricept -) 5 mg PO DAILY [facility] Heparin Sodium (Porcine) (Heparin -) 5,000 unit SQ BID [facility] Last Admin: 06/29/18 11:09 Dose: 5,000 unit Piperacillin Sod/Tazobactam (Sod 3.375 gm/ Dextrose) 50 mls @ 100 mls/hr IVPB Q8H-IV [facility]; Protocol Last Admin: 06/29/18 11:10 Dose: 100 mls/hr Megestrol Acetate (Megace -) 20 mg PO BID [facility] Last Admin: 06/29/18 11:09 Dose: 20 mg Non-Formulary Medication (Linaclotide [Linzess]) 72 mcg PO DAILY [facility] Tamsulosin HCl (Flomax -) 0.4 mg PO DAILY@0830 [facility] Last Admin: 06/29/18 11:08 Dose: 0.4 mg - Objective Vital Signs: Vital Signs Temperature 98 F 06/29/18 09:00 Pulse Rate 86 06/29/18 09:00 Respiratory Rate 20 06/29/18 09:00 Blood Pressure 136/80 06/29/18 09:00 O2 Sat by Pulse Oximetry (%) 98 06/28/18 21:00 Constitutional: Yes: No Distress, Calm Cardiovascular: Yes: S1, S2 Respiratory: Yes: Regular, CTA Bilaterally Gastrointestinal: Yes: Normal Bowel Sounds, Soft Musculoskeletal: Yes: WNL Extremities: Yes: Other Neurological: Yes: Alert, Oriented Psychiatric: Yes: Alert, Oriented Labs: CBC, BMP 06/29/18 05:30 06/29/18 05:30 INR, PTT INR 1.13 (0.83-1.09) H 06/24/18 19:51 Assessment/Plan 72 yo RH man lives with his . PMHX includes diagnosis Parkinson's Disease. Ambulates with walker admitted for recurrent falls, low blood pressure , urinary frequency, fever and flank pain. patient started on iv abx sepsis fever falls urinary incontinence weakness plan will continue abx repeat cx noted will deeescalate abx tomorrow rest as per the team
--- NOTE | 2018-06-29 22:12 | PN ---
Progress Note, Physician History of Present Illness: No new complaints - Current Medication List Current Medications: Active Medications Acetaminophen (Tylenol -) 650 mg PO Q6H PRN PRN Reason: FEVER Last Admin: 06/28/18 16:00 Dose: 650 mg Carbidopa/Levodopa (Sinemet 25/100 -) 1.5 each PO TIDCM [facility] Last Admin: 06/29/18 17:40 Dose: 1.5 each Docusate Sodium (Colace -) 100 mg PO TID [facility] Last Admin: 06/29/18 13:31 Dose: 100 mg Donepezil HCl (Aricept -) 5 mg PO DAILY [facility] Heparin Sodium (Porcine) (Heparin -) 5,000 unit SQ BID [facility] Last Admin: 06/29/18 11:09 Dose: 5,000 unit Piperacillin Sod/Tazobactam (Sod 3.375 gm/ Dextrose) 50 mls @ 100 mls/hr IVPB Q8H-IV [facility]; Protocol Last Admin: 06/29/18 17:41 Dose: 100 mls/hr Megestrol Acetate (Megace -) 20 mg PO BID [facility] Last Admin: 06/29/18 11:09 Dose: 20 mg Non-Formulary Medication (Linaclotide [Linzess]) 72 mcg PO DAILY [facility] Tamsulosin HCl (Flomax -) 0.4 mg PO DAILY@0830 [facility] Last Admin: 06/29/18 11:08 Dose: 0.4 mg - Objective Vital Signs: Vital Signs Temperature 99.2 F 06/29/18 20:22 Pulse Rate 75 06/29/18 20:22 Respiratory Rate 20 06/29/18 20:22 Blood Pressure 116/71 06/29/18 20:22 O2 Sat by Pulse Oximetry (%) 98 06/29/18 09:00 Neck: Yes: WNL, Supple Cardiovascular: Yes: WNL, Regular Rate and Rhythm Respiratory: Yes: WNL, Regular, CTA Bilaterally Gastrointestinal: Yes: WNL, Normal Bowel Sounds, Soft Labs: CBC, BMP 06/29/18 05:30 06/29/18 05:30 INR, PTT INR 1.13 (0.83-1.09) H 06/24/18 19:51 Problem List - Problems (1) Syncope Assessment/Plan: CPK/tropnonin negative Due to toxic metabolic encephalopathy vs orthostatic hypotension Cont IVF Code(s): R55 - SYNCOPE AND COLLAPSE Qualifiers: Syncope type: unspecified Qualified Code(s): R55 - Syncope and collapse (2) UTI (urinary tract infection) Assessment/Plan: Cont IV antibxs Code(s): N39.0 - URINARY TRACT INFECTION, SITE NOT SPECIFIED (3) Parkinson disease Assessment/Plan: Cont sinemet Await MRI C-spine PT eval Code(s): G20 - PARKINSON'S DISEASE (4) BPH (benign prostatic hyperplasia) Assessment/Plan: Cont flomax Code(s): N40.0 - BENIGN PROSTATIC HYPERPLASIA WITHOUT LOWER URINRY TRACT SYMP (5) HTN (hypertension) Assessment/Plan: BP fluctuating Pt is not on any antihypertensive meds ?orthostatic hypotension Code(s): I10 - ESSENTIAL (PRIMARY) HYPERTENSION (6) Sepsis Assessment/Plan: Due to UTI Cont IV antibxs Cont IVF Follow cultures Code(s): A41.9 - SEPSIS, UNSPECIFIED ORGANISM (7) Anemia Code(s): D64.9 - ANEMIA, UNSPECIFIED
[2018-06-30] MEDS ORDERED: PIPERACILLIN/TAZOBACTAM 3.375 GM VIAL IVPB ONE ×2 (01:16→09:07)
[2018-06-30] MEDS ORDERED: DEXTROSE 5%-WATER - 50 ML IVPB ONE ×2 (01:17→09:07)
[2018-06-30] MEDS: PIPERACILLIN/TAZOB 3.375 GM 3.375 GM in DEXTROSE 5%-WATER - 50 ML IVPB SCH ×2 (01:28→10:09)
[2018-06-30] MEDS: DOCUSATE SODIUM 100 MG CAPSULE (FP) PO SCH ×3 (06:31→21:27)
[2018-06-30] MEDS: CARBIDOPA/LEVODOPA 25/100 TABLET (FP) PO SCH ×3 (10:08→17:10)
[2018-06-30] MEDS: TAMSULOSIN HCL 0.4 MG CAP PO SCH (10:08)
[2018-06-30] MEDS: HEPARIN NA (PORCINE) 5,000 UNITS/ML 1ML VIAL SQ SCH ×2 (10:08→21:27)
[2018-06-30] MEDS: DONEPEZIL HCL 5 MG TABLET (FP) PO SCH (10:09)
[2018-06-30] MEDS: MEGESTROL ACETATE 20 MG TABLET PO SCH ×2 (10:14→22:45)
[2018-06-30] MEDS ORDERED: PT OWN MED DRAWER 7, Y5N ONE ×2 (10:41→22:32)
--- NOTE | 2018-06-30 14:35 | PN ---
Progress Note, Physician History of Present Illness: stable doing much better - Current Medication List Current Medications: Active Medications Acetaminophen (Tylenol -) 650 mg PO Q6H PRN PRN Reason: FEVER Last Admin: 06/28/18 16:00 Dose: 650 mg Carbidopa/Levodopa (Sinemet 25/100 -) 1.5 each PO TIDCM [facility] Last Admin: 06/30/18 13:18 Dose: 1.5 each Docusate Sodium (Colace -) 100 mg PO TID [facility] Last Admin: 06/30/18 13:18 Dose: 100 mg Donepezil HCl (Aricept -) 5 mg PO DAILY [facility] Last Admin: 06/30/18 10:09 Dose: 5 mg Heparin Sodium (Porcine) (Heparin -) 5,000 unit SQ BID [facility] Last Admin: 06/30/18 10:08 Dose: 5,000 unit Megestrol Acetate (Megace -) 20 mg PO BID [facility] Last Admin: 06/30/18 10:14 Dose: 20 mg Tamsulosin HCl (Flomax -) 0.4 mg PO DAILY@0830 [facility] Last Admin: 06/30/18 10:08 Dose: 0.4 mg - Objective Vital Signs: Vital Signs Temperature 98.1 F 06/30/18 14:25 Pulse Rate 79 06/30/18 14:25 Respiratory Rate 18 06/30/18 14:25 Blood Pressure 89/56 L 06/30/18 14:25 O2 Sat by Pulse Oximetry (%) 99 06/30/18 09:00 Constitutional: Yes: No Distress, Calm Cardiovascular: Yes: Regular Rate and Rhythm Respiratory: Yes: Regular, CTA Bilaterally Gastrointestinal: Yes: Normal Bowel Sounds, Soft Musculoskeletal: Yes: WNL Extremities: Yes: Other Neurological: Yes: Alert, Oriented Psychiatric: Yes: Alert, Oriented Labs: CBC, BMP 06/29/18 05:30 06/29/18 05:30 INR, PTT INR 1.13 (0.83-1.09) H 06/24/18 19:51 Assessment/Plan 72 yo RH man lives with his . PMHX includes diagnosis Parkinson's Disease. Ambulates with walker admitted for recurrent falls, low blood pressure , urinary frequency, fever and flank pain. patient started on iv abx sepsis fever falls urinary incontinence weakness plan will stop abx continue as per neuro rest as per the team patient improving
--- NOTE | 2018-06-30 18:05 | PN ---
Progress Note, Physician History of Present Illness: Long d/w pt and his sister about need for STR and they have agreed - Current Medication List Current Medications: Active Medications Acetaminophen (Tylenol -) 650 mg PO Q6H PRN PRN Reason: FEVER Last Admin: 06/28/18 16:00 Dose: 650 mg Carbidopa/Levodopa (Sinemet 25/100 -) 1.5 each PO TIDCM [facility] Last Admin: 06/30/18 17:10 Dose: 1.5 each Docusate Sodium (Colace -) 100 mg PO TID [facility] Last Admin: 06/30/18 13:18 Dose: 100 mg Donepezil HCl (Aricept -) 5 mg PO DAILY [facility] Last Admin: 06/30/18 10:09 Dose: 5 mg Heparin Sodium (Porcine) (Heparin -) 5,000 unit SQ BID [facility] Last Admin: 06/30/18 10:08 Dose: 5,000 unit Megestrol Acetate (Megace -) 20 mg PO BID [facility] Last Admin: 06/30/18 10:14 Dose: 20 mg Tamsulosin HCl (Flomax -) 0.4 mg PO DAILY@0830 [facility] Last Admin: 06/30/18 10:08 Dose: 0.4 mg - Objective Vital Signs: Vital Signs Temperature 98.2 F 06/30/18 18:00 Pulse Rate 79 06/30/18 18:00 Respiratory Rate 18 06/30/18 18:00 Blood Pressure 124/77 06/30/18 18:00 O2 Sat by Pulse Oximetry (%) 99 06/30/18 09:00 Neck: Yes: WNL, Supple Cardiovascular: Yes: WNL, Regular Rate and Rhythm Respiratory: Yes: WNL, Regular, CTA Bilaterally Gastrointestinal: Yes: WNL, Normal Bowel Sounds, Soft Labs: CBC, BMP 06/29/18 05:30 06/29/18 05:30 INR, PTT INR 1.13 (0.83-1.09) H 06/24/18 19:51 Problem List - Problems (1) Parkinson disease Assessment/Plan: Cont sinemet wc was increased Awaiting MRI C-spine to r/o cervical myelopathy Pt will need STR Code(s): G20 - PARKINSON'S DISEASE (2) BPH (benign prostatic hyperplasia) Assessment/Plan: Cont flomax Code(s): N40.0 - BENIGN PROSTATIC HYPERPLASIA WITHOUT LOWER URINRY TRACT SYMP (3) HTN (hypertension) Assessment/Plan: BP fluctuating Pt is not on any antihypertensive meds Code(s): I10 - ESSENTIAL (PRIMARY) HYPERTENSION (4) Toxic metabolic encephalopathy Code(s): G92 - TOXIC ENCEPHALOPATHY (5) UTI (urinary tract infection) Assessment/Plan: Urine cultures remain negative Antibx dc'ed Code(s): N39.0 - URINARY TRACT INFECTION, SITE NOT SPECIFIED
--- NOTE | 2018-06-30 18:37 | PN ---
Progress Note (short form) - Note Progress Note: NEUROLOGY PROGRESS: Events reviewed. Tolerating Sinemet 37.5/150 TID. Sister at bedside feeding patient pureed diet. Tolerating without dysphagia. Off antibiotics. Right arm swollen, distally with c/o right hand pain. Dopplers neg for DVT right arm. EXAM: Afebrile. BP's now in 140-150/90 range. Awake , alert. [facility] Hypophonic speech Bradykinetic. Jaw and B/L hand rest tremor + Cogwheel rigidity in the arms and rigidity in the legs. Brisk reflexes except AJ's. Feels vibration both feet. IMP: 1. Moderate OMS 2. Parkinson's disease. 3 Toxic-Metabolic encephalopathy-improved. Plan: Mobilize PT OOBed to chair. Begin PT MRI of cervical spine (C-) Increase Sinemet to 50/200 TID @7, 12, and 5 Continue Donepezil 5 mg PO q AM. Thank you very much, Leodan Lucero MD
[2018-07-01] MEDS: ACETAMINOPHEN 325 MG TABLET (FP) PO PRN ×2 (06:04→14:27)
[2018-07-01] MEDS: DOCUSATE SODIUM 100 MG CAPSULE (FP) PO SCH ×3 (06:05→21:56)
[2018-07-01] MEDS ORDERED: PT OWN MED DRAWER 7, Y5N ONE ×2 (06:51→21:49)
[2018-07-01] MEDS: TAMSULOSIN HCL 0.4 MG CAP PO SCH (08:58)
[2018-07-01] MEDS: HEPARIN NA (PORCINE) 5,000 UNITS/ML 1ML VIAL SQ SCH ×2 (09:55→21:56)
[2018-07-01] MEDS: DONEPEZIL HCL 5 MG TABLET (FP) PO SCH (09:55)
[2018-07-01] MEDS: MEGESTROL ACETATE 20 MG TABLET PO SCH ×2 (09:55→21:56)
--- NOTE | 2018-07-01 13:09 | PN ---
Progress Note, Physician History of Present Illness: stable doing well no new issues rt hand still bothering him - Current Medication List Current Medications: Active Medications Acetaminophen (Tylenol -) 650 mg PO Q6H PRN PRN Reason: FEVER Last Admin: 07/01/18 06:04 Dose: 650 mg Carbidopa/Levodopa (Sinemet *Cr* 50/200 -) 1 combo PO TID@0700,1200,1700 [facility] Last Admin: 07/01/18 06:05 Dose: 1 combo Docusate Sodium (Colace -) 100 mg PO TID [facility] Last Admin: 07/01/18 06:05 Dose: 100 mg Donepezil HCl (Aricept -) 5 mg PO DAILY [facility] Last Admin: 07/01/18 09:55 Dose: 5 mg Heparin Sodium (Porcine) (Heparin -) 5,000 unit SQ BID [facility] Last Admin: 07/01/18 09:55 Dose: 5,000 unit Megestrol Acetate (Megace -) 20 mg PO BID [facility] Last Admin: 07/01/18 09:55 Dose: 20 mg Tamsulosin HCl (Flomax -) 0.4 mg PO DAILY@0830 [facility] Last Admin: 07/01/18 08:58 Dose: 0.4 mg - Objective Vital Signs: Vital Signs Temperature 89 F L 07/01/18 10:02 Pulse Rate 89 07/01/18 10:02 Respiratory Rate 20 07/01/18 10:02 Blood Pressure 100/62 07/01/18 10:02 O2 Sat by Pulse Oximetry (%) 98 07/01/18 09:00 Constitutional: Yes: No Distress, Calm Cardiovascular: Yes: Regular Rate and Rhythm Respiratory: Yes: Regular, CTA Bilaterally Gastrointestinal: Yes: Normal Bowel Sounds, Soft Musculoskeletal: Yes: Other Extremities: Yes: Other (rt arm swollen) Neurological: Yes: Alert, Oriented Psychiatric: Yes: Alert, Oriented Labs: CBC, BMP 06/29/18 05:30 06/29/18 05:30 INR, PTT INR 1.13 (0.83-1.09) H 06/24/18 19:51 Assessment/Plan 72 yo RH man lives with his . PMHX includes diagnosis Parkinson's Disease. Ambulates with walker admitted for recurrent falls, low blood pressure , urinary frequency, fever and flank pain. patient started on iv abx sepsis fever falls urinary incontinence weakness plan stable continue current mgmt physio rest as per the team
[2018-07-01] MEDS: DEXTROSE 5%-0.45% SALINE 1,000 ML IV SCH ×2 (18:56→21:56)
--- NOTE | 2018-07-01 22:53 | PN ---
Progress Note, Physician History of Present Illness: No new complaints - Current Medication List Current Medications: Active Medications Acetaminophen (Tylenol -) 650 mg PO Q6H PRN PRN Reason: FEVER Last Admin: 07/01/18 14:27 Dose: 650 mg Carbidopa/Levodopa (Sinemet *Cr* 50/200 -) 1 combo PO TID@0700,1200,1700 [facility] Last Admin: 07/01/18 17:13 Dose: 1 combo Docusate Sodium (Colace -) 100 mg PO TID [facility] Last Admin: 07/01/18 21:56 Dose: 100 mg Donepezil HCl (Aricept -) 5 mg PO DAILY [facility] Last Admin: 07/01/18 09:55 Dose: 5 mg Heparin Sodium (Porcine) (Heparin -) 5,000 unit SQ BID [facility] Last Admin: 07/01/18 21:56 Dose: 5,000 unit Dextrose/Sodium Chloride (D5-1/2ns -) 1,000 mls @ 75 mls/hr IV ASDIR [facility] Last Admin: 07/01/18 21:56 Dose: 75 mls/hr Megestrol Acetate (Megace -) 20 mg PO BID [facility] Last Admin: 07/01/18 21:56 Dose: 20 mg Tamsulosin HCl (Flomax -) 0.4 mg PO DAILY@0830 [facility] Last Admin: 07/01/18 08:58 Dose: 0.4 mg - Objective Vital Signs: Vital Signs Temperature 98.4 F 07/01/18 22:07 Pulse Rate 70 07/01/18 22:07 Respiratory Rate 20 07/01/18 22:07 Blood Pressure 126/70 07/01/18 22:07 O2 Sat by Pulse Oximetry (%) 98 07/01/18 09:00 Neck: Yes: WNL, Supple Cardiovascular: Yes: WNL, Regular Rate and Rhythm Respiratory: Yes: WNL, Regular, CTA Bilaterally Gastrointestinal: Yes: WNL, Normal Bowel Sounds, Soft Extremities: Yes: WNL Edema: No Labs: CBC, BMP 06/29/18 05:30 06/29/18 05:30 INR, PTT INR 1.13 (0.83-1.09) H 06/24/18 19:51 Problem List - Problems (1) UTI (urinary tract infection) Assessment/Plan: Cont IV antibxs Code(s): N39.0 - URINARY TRACT INFECTION, SITE NOT SPECIFIED (2) Parkinson disease Assessment/Plan: Cont sinemet Await MRI C-spine PT eval Code(s): G20 - PARKINSON'S DISEASE (3) BPH (benign prostatic hyperplasia) Assessment/Plan: Cont flomax Code(s): N40.0 - BENIGN PROSTATIC HYPERPLASIA WITHOUT LOWER URINRY TRACT SYMP (4) HTN (hypertension) Assessment/Plan: BP fluctuating Pt is not on any antihypertensive meds ?orthostatic hypotension Code(s): I10 - ESSENTIAL (PRIMARY) HYPERTENSION (5) Toxic metabolic encephalopathy Code(s): G92 - TOXIC ENCEPHALOPATHY (6) Sepsis Assessment/Plan: Due to UTI Cont IV antibxs Cont IVF Follow cultures Code(s): A41.9 - SEPSIS, UNSPECIFIED ORGANISM
[2018-07-02] MEDS: DOCUSATE SODIUM 100 MG CAPSULE (FP) PO SCH ×3 (06:14→21:18)
[2018-07-02] MEDS: TAMSULOSIN HCL 0.4 MG CAP PO SCH (08:31)
[2018-07-02] MEDS ORDERED: PT OWN MED DRAWER 7, Y5N ONE ×3 (10:05→21:06)
[2018-07-02] MEDS: HEPARIN NA (PORCINE) 5,000 UNITS/ML 1ML VIAL SQ SCH (10:09)
[2018-07-02] MEDS: MEGESTROL ACETATE 20 MG TABLET PO SCH ×2 (10:09→21:18)
[2018-07-02] MEDS: DONEPEZIL HCL 5 MG TABLET (FP) PO SCH (10:09)
[2018-07-02] MEDS: ACETAMINOPHEN 325 MG TABLET (FP) PO PRN (14:00)
--- NOTE | 2018-07-02 15:12 | PN ---
Progress Note, Physician History of Present Illness: patient stable no new issues - Current Medication List Current Medications: Active Medications Acetaminophen (Tylenol -) 650 mg PO Q6H PRN PRN Reason: FEVER Last Admin: 07/02/18 14:00 Dose: 650 mg Carbidopa/Levodopa (Sinemet *Cr* 50/200 -) 1 combo PO TID@0700,1200,1700 [facility] Last Admin: 07/02/18 11:54 Dose: 1 combo Docusate Sodium (Colace -) 100 mg PO TID [facility] Last Admin: 07/02/18 14:00 Dose: 100 mg Donepezil HCl (Aricept -) 5 mg PO DAILY [facility] Last Admin: 07/02/18 10:09 Dose: 5 mg Heparin Sodium (Porcine) (Heparin -) 5,000 unit SQ BID [facility] Last Admin: 07/02/18 10:09 Dose: 5,000 unit Dextrose/Sodium Chloride (D5-1/2ns -) 1,000 mls @ 75 mls/hr IV ASDIR [facility] Last Admin: 07/01/18 21:56 Dose: 75 mls/hr Megestrol Acetate (Megace -) 20 mg PO BID [facility] Last Admin: 07/02/18 10:09 Dose: 20 mg Tamsulosin HCl (Flomax -) 0.4 mg PO DAILY@0830 [facility] Last Admin: 07/02/18 08:31 Dose: 0.4 mg - Objective Vital Signs: Vital Signs Temperature 99.5 F 07/02/18 13:48 Pulse Rate 78 07/02/18 13:48 Respiratory Rate 20 07/02/18 05:28 Blood Pressure 124/73 07/02/18 13:48 O2 Sat by Pulse Oximetry (%) 99 07/02/18 09:00 Constitutional: Yes: No Distress, Calm Cardiovascular: Yes: Regular Rate and Rhythm Respiratory: Yes: Regular, CTA Bilaterally Gastrointestinal: Yes: Normal Bowel Sounds, Soft Musculoskeletal: Yes: WNL Extremities: Yes: Other (rt arm still swollen improving) Neurological: Yes: Alert, Oriented Psychiatric: Yes: Alert, Oriented Labs: CBC, BMP 06/29/18 05:30 06/29/18 05:30 INR, PTT INR 1.13 (0.83-1.09) H 06/24/18 19:51 Assessment/Plan 72 yo RH man lives with his . PMHX includes diagnosis Parkinson's Disease. Ambulates with walker admitted for recurrent falls, low blood pressure , urinary frequency, fever and flank pain. patient started on iv abx sepsis fever falls urinary incontinence weakness plan stable continue current mgmt physio rest as per the team
--- NOTE | 2018-07-02 16:50 | CON.CARD ---
Consult Consult Specialty:: Cardiology Referred by:: Medicine Reason for Consultation:: hypotension - History of Present Illness Chief Complaint: hypotension History of Present Illness: 71M h/o parkinson's dz, orthostatic hypotension, autonomic dysfunction, recurrent syncope p/w urinary frequency, fever. Sees Dr. Mccormack for cardio. Has been followed by neuro, adjusting parkinson's meds. BP had been stable with episode of hypotension yesterday. 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 History of Recent Travel: No Home Medications - Allergies Allergies/Adverse Reactions: Allergies Allergy/AdvReac Type Severity Reaction Status Date / Time No Known Allergies Allergy Verified 06/24/18 19:10 - Home Medications Home Medications: Ambulatory Orders Carbidopa/Levodopa 25/100 [Sinemet 25/100 -] 1 each PO TID tablet 10/08/17 Linaclotide [Linzess] 72 mcg PO DAILY 06/24/18 Megestrol Acetate [Megace -] 20 mg PO BID 06/24/18 Tamsulosin HCl [Flomax -] 0.4 mg PO DAILY 06/24/18 Acetaminophen [Tylenol .Regular Strength -] 650 mg PO Q6H PRN tablet 07/02/18 Carbidopa/Levodopa *Cr* 50/200 [Sinemet *Cr* 50/200 -] 1 combo PO TID@0700,1200, 1700 tablet.er 07/02/18 Docusate Sodium [Colace -] 100 mg PO TID capsule 07/02/18 Donepezil HCl [Aricept -] 5 mg PO DAILY tablet 07/02/18 Family Disease History - Family Disease History Family History: Unremarkable Review of Systems - Review of Systems Constitutional: reports: No Symptoms Eyes: reports: No Symptoms HENT: reports: No Symptoms Neck: reports: No Symptoms Cardiovascular: reports: No Symptoms Respiratory: reports: No Symptoms Gastrointestinal: reports: No Symptoms Genitourinary: reports: No Symptoms Musculoskeletal: reports: No Symptoms Integumentary: reports: No Symptoms Neurological: reports: No Symptoms Endocrine: reports: No Symptoms Hematology/Lymphatic: reports: No Symptoms Vital Signs: Vital Signs Temperature 99.5 F 07/02/18 13:48 Pulse Rate 78 07/02/18 13:48 Respiratory Rate 20 07/02/18 05:28 Blood Pressure 124/73 07/02/18 13:48 O2 Sat by Pulse Oximetry (%) 99 07/02/18 09:00 Constitutional: Yes: No Distress, Calm Eyes: Yes: Conjunctiva Clear, EOM Intact HENT: Yes: Atraumatic, Normocephalic Neck: Yes: Supple, Trachea Midline Respiratory: Yes: Regular, CTA Bilaterally Gastrointestinal: Yes: Normal Bowel Sounds, Soft Cardiovascular: Yes: Regular Rate and Rhythm JVD: No Carotid Bruit: No PMI: Non-Displaced Heart Sounds: Yes: S1, S2 Musculoskeletal: No: Back Pain Extremities: No: Cold Edema: No Peripheral Pulses WNL: Yes Peripheral Pulses: 2+ Left Doralis Pedis, 2+ Right Dorsalis Pedis Integumentary: No: Jaundice Neurological: Yes: Alert, Oriented Psychiatric: No: Agitated - Other Data Labs, Other Data: CBC, BMP 06/29/18 05:30 06/29/18 05:30 INR, PTT INR 1.13 (0.83-1.09) H 06/24/18 19:51 Assessment/Plan EKG: sinus, nl intervals, no ischemic changes echo 12/2016 nl LV size/function, E/A reversal, mild MAC, mild to mod MR, mild to mod TR, mild ao sclerosis, mild IL, mild ao root dilation Hypotension - has history of autonomic dysfunction, orthostatic hypotension - prior admissions noted episodes of hypotension, BP fluctuates - not receiving any BP meds here - was treated for UTI, now off abx, afebrile - check echo, if benign findings no further cardiac workup as inpatient - likely 2/2 autonomic dysfunction UTI - completed abx, now afebrile - per ID Parkinson's dz - manage per neuro hx syncope - prior workup with Dr. Mccormack - no episodes here, h/o loop recorder with no arrhythmia
[2018-07-02] MEDS: DEXTROSE 5%-0.45% SALINE 1,000 ML IV SCH (18:55)
--- NOTE | 2018-07-02 21:44 | PN ---
Progress Note, Physician History of Present Illness: No new complaints - Current Medication List Current Medications: Active Medications Acetaminophen (Tylenol -) 650 mg PO Q6H PRN PRN Reason: FEVER Last Admin: 07/02/18 14:00 Dose: 650 mg Carbidopa/Levodopa (Sinemet *Cr* 50/200 -) 1 combo PO TID@0700,1200,1700 [facility] Last Admin: 07/02/18 18:59 Dose: 1 combo Docusate Sodium (Colace -) 100 mg PO TID [facility] Last Admin: 07/02/18 21:18 Dose: 100 mg Donepezil HCl (Aricept -) 5 mg PO DAILY [facility] Last Admin: 07/02/18 10:09 Dose: 5 mg Heparin Sodium (Porcine) (Heparin -) 5,000 unit SQ BID [facility] Last Admin: 07/02/18 10:09 Dose: 5,000 unit Dextrose/Sodium Chloride (D5-1/2ns -) 1,000 mls @ 75 mls/hr IV ASDIR [facility] Last Admin: 07/02/18 18:55 Dose: 75 mls/hr Megestrol Acetate (Megace -) 20 mg PO BID [facility] Last Admin: 07/02/18 21:18 Dose: 20 mg Polyethylene Glycol (Miralax (For Daily Use) -) 17 gm PO DAILY [facility] Tamsulosin HCl (Flomax -) 0.4 mg PO DAILY@0830 [facility] Last Admin: 07/02/18 08:31 Dose: 0.4 mg - Objective Vital Signs: Vital Signs Temperature 99.5 F 07/02/18 13:48 Pulse Rate 78 07/02/18 13:48 Respiratory Rate 20 07/02/18 05:28 Blood Pressure 124/73 07/02/18 13:48 O2 Sat by Pulse Oximetry (%) 99 07/02/18 09:00 Neck: Yes: WNL, Supple Cardiovascular: Yes: WNL, Regular Rate and Rhythm Respiratory: Yes: WNL, Regular, CTA Bilaterally Gastrointestinal: Yes: WNL, Normal Bowel Sounds, Soft Edema: No Labs: CBC, BMP 06/29/18 05:30 06/29/18 05:30 INR, PTT INR 1.13 (0.83-1.09) H 06/24/18 19:51 Problem List - Problems (1) Parkinson disease Assessment/Plan: Cont sinemet wc was increased MRI C-spine noted DC planning to STR Code(s): G20 - PARKINSON'S DISEASE (2) BPH (benign prostatic hyperplasia) Assessment/Plan: Cont flomax Code(s): N40.0 - BENIGN PROSTATIC HYPERPLASIA WITHOUT LOWER URINRY TRACT SYMP (3) HTN (hypertension) Assessment/Plan: BP fluctuating Pt is not on any antihypertensive meds Code(s): I10 - ESSENTIAL (PRIMARY) HYPERTENSION (4) Toxic metabolic encephalopathy Assessment/Plan: Resolved Code(s): G92 - TOXIC ENCEPHALOPATHY (5) UTI (urinary tract infection) Assessment/Plan: Urine cultures remain negative Antibx dc'ed Code(s): N39.0 - URINARY TRACT INFECTION, SITE NOT SPECIFIED
[2018-07-03] MEDS: DOCUSATE SODIUM 100 MG CAPSULE (FP) PO SCH ×3 (06:50→21:25)
[2018-07-03] MEDS: DEXTROSE 5%-0.45% SALINE 1,000 ML IV SCH ×2 (06:54→17:56)
[2018-07-03] MEDS ORDERED: PT OWN MED DRAWER 7, Y5N ONE ×2 (11:13→21:00)
[2018-07-03] MEDS: DONEPEZIL HCL 5 MG TABLET (FP) PO SCH (11:15)
[2018-07-03] MEDS: MEGESTROL ACETATE 20 MG TABLET PO SCH ×2 (11:15→21:25)
[2018-07-03] MEDS: TAMSULOSIN HCL 0.4 MG CAP PO SCH (11:15)
--- NOTE | 2018-07-03 13:25 | PN ---
Progress Note, Physician History of Present Illness: stable no new issues - Current Medication List Current Medications: Active Medications Acetaminophen (Tylenol -) 650 mg PO Q6H PRN PRN Reason: FEVER Last Admin: 07/02/18 14:00 Dose: 650 mg Carbidopa/Levodopa (Sinemet *Cr* 50/200 -) 1 combo PO TID@0700,1200,1700 [facility] Last Admin: 07/03/18 11:17 Dose: 1 combo Docusate Sodium (Colace -) 100 mg PO TID [facility] Last Admin: 07/02/18 21:18 Dose: 100 mg Donepezil HCl (Aricept -) 5 mg PO DAILY [facility] Last Admin: 07/03/18 11:15 Dose: 5 mg Dextrose/Sodium Chloride (D5-1/2ns -) 1,000 mls @ 75 mls/hr IV ASDIR [facility] Last Admin: 07/03/18 06:54 Dose: 75 mls/hr Megestrol Acetate (Megace -) 20 mg PO BID [facility] Last Admin: 07/03/18 11:15 Dose: 20 mg Polyethylene Glycol (Miralax (For Daily Use) -) 17 gm PO DAILY [facility] Tamsulosin HCl (Flomax -) 0.4 mg PO DAILY@0830 [facility] Last Admin: 07/03/18 11:15 Dose: 0.4 mg - Objective Vital Signs: Vital Signs Temperature 97.7 F 07/03/18 06:00 Pulse Rate 84 07/03/18 06:00 Respiratory Rate 18 07/03/18 09:00 Blood Pressure 136/75 07/03/18 06:00 O2 Sat by Pulse Oximetry (%) 97 07/03/18 09:00 Constitutional: Yes: No Distress, Calm Cardiovascular: Yes: Regular Rate and Rhythm Respiratory: Yes: Regular, CTA Bilaterally Gastrointestinal: Yes: Normal Bowel Sounds, Soft Musculoskeletal: Yes: WNL Extremities: Yes: Other (rt arm swelling) Neurological: Yes: Alert, Oriented Psychiatric: Yes: Alert, Oriented Labs: CBC, BMP 06/29/18 05:30 06/29/18 05:30 INR, PTT INR 1.13 (0.83-1.09) H 06/24/18 19:51 Assessment/Plan 72 yo RH man lives with his . PMHX includes diagnosis Parkinson's Disease. Ambulates with walker admitted for recurrent falls, low blood pressure , urinary frequency, fever and flank pain. patient started on iv abx sepsis fever falls urinary incontinence weakness plan stable continue current mgmt physio rest as per the team
[2018-07-03] MEDS: POLYETHYLENE GLYCOL 3350 119 GM BTL PO SCH ×2 (14:07→15:58)
--- NOTE | 2018-07-03 14:16 | ECHO ---
Name: CHARLENE ONTIVEROS Exam:Adult Echocardiogram Study Date: 07/03/2018 10:42 AM Age: 72 yrs Reason For Study: hypotensive Height: 72 in Weight: 160 lb BSA: 1.9 m2 MMode/2D Measurements & Calculations IVSd: 0.90 cm Ao root diam: 3.2 cm LVIDd: 5.0 cm LA dimension: 3.3 cm LVIDs: 3.4 cm LVPWd: 1.1 cm EDV(Teich): 120.7 ml LVOT diam: 2.4 cm ESV(Teich): 47.5 ml Doppler Measurements & Calculations MV E max pardeep: 49.5 cm/sec Ao V2 max: 88.2 cm/sec MV A max pardeep: 65.5 cm/sec Ao max P.1 mmHg MV E/A: 0.76 Ao V2 mean: 58.9 cm/sec Ao mean P.6 mmHg Ao V2 VTI: 13.9 cm VALERIA(I,D): 3.7 cm2 VALERIA(V,D): 3.7 cm2 LV V1 max P.2 mmHg SV(LVOT): 50.9 ml LV V1 mean P.95 mmHg LV V1 max: 73.7 cm/sec LV V1 mean: 44.2 cm/sec LV V1 VTI: 11.4 cm Med Peak E' Pardeep: 5.5 cm/sec PI Vmax: 105.9 cm/sec Med E/e': 8.9 Lat Peak E' Pardeep: 8.2 cm/sec Lat E/e': 6.1 Procedure A two-dimensional transthoracic echocardiogram with color flow and Doppler was performed. Left Ventricle The left ventricular size, thickness and function are normal. The left ventricular ejection fraction is normal. E/A reversal consistent with but not diagnostic of poor LV compliance. The left ventricular w all motion is normal. Apical echoes consistent with trabeculae are noted. Cannot rule out associated thro mbi. Right Ventricle The right ventricle is normal in size and function. Atria Normal left and right atrial size and function. Mitral Valve There is mild mitral valve thickening. There is no mitral valve stenosis. There is trace to mild mitr al regurgitation. Tricuspid Valve There is mild tricuspid valve thickening. There is no tricuspid stenosis. There was insufficient TR d etected to calculate RV systolic pressure. Aortic Valve The aortic valve is normal in structure and function. No hemodynamically significant valvular aortic stenosis. No aortic regurgitation is present. Pulmonic Valve The pulmonic valve is not well visualized. There is no pulmonic valvular stenosis. Moderate pulmonic valvular regurgitation. Great Vessels The aortic root is normal size. Pericardium/Pleura There is no pericardial effusion. Interpretation Summary The left ventricular size, thickness and function are normal The left ventricular ejection fraction is normal. The left ventricular wall motion is normal. Moderate pulmonic valvular regurgitation. E/A reversal consistent with but not diagnostic of poor LV compliance Apical echoes consistent with trabeculae are noted. Cannot rule out associated thrombi. There is trace to mild mitral regurgitation. There was insufficient TR detected to calculate RV systolic pressure. MD Boby Hoskins 07/03/2018 02:15 PM
--- NOTE | 2018-07-03 14:46 | PN ---
Progress Note (short form) - Note Progress Note: s: no chest pain, palps, dizziness, lightheadedness Current Medications Acetaminophen (Tylenol -) 650 mg PO Q6H PRN PRN Reason: FEVER Last Admin: 07/02/18 14:00 Dose: 650 mg Carbidopa/Levodopa (Sinemet *Cr* 50/200 -) 1 combo PO TID@0700,1200,1700 [facility] Last Admin: 07/03/18 11:17 Dose: 1 combo Docusate Sodium (Colace -) 100 mg PO TID [facility] Last Admin: 07/03/18 14:06 Dose: 100 mg Donepezil HCl (Aricept -) 5 mg PO DAILY [facility] Last Admin: 07/03/18 11:15 Dose: 5 mg Dextrose/Sodium Chloride (D5-1/2ns -) 1,000 mls @ 75 mls/hr IV ASDIR [facility] Last Admin: 07/03/18 06:54 Dose: 75 mls/hr Megestrol Acetate (Megace -) 20 mg PO BID [facility] Last Admin: 07/03/18 11:15 Dose: 20 mg Polyethylene Glycol (Miralax (For Daily Use) -) 17 gm PO DAILY [facility] Last Admin: 07/03/18 14:07 Dose: 17 grams Tamsulosin HCl (Flomax -) 0.4 mg PO DAILY@0830 [facility] Last Admin: 07/03/18 11:15 Dose: 0.4 mg Vital Signs: Vital Signs Period Temp Pulse Resp BP Sys/Zheng Pulse Ox Last 24 Hr 97.7 F-98.8 F 81-84 18-20 136-143/75-88 97-99 Constitutional: Yes: No Distress, Calm Eyes: Yes: Conjunctiva Clear, EOM Intact HENT: Yes: Atraumatic, Normocephalic Neck: Yes: Supple, Trachea Midline Respiratory: Yes: Regular, CTA Bilaterally Gastrointestinal: Yes: Normal Bowel Sounds, Soft Cardiovascular: Yes: Regular Rate and Rhythm JVD: No Carotid Bruit: No PMI: Non-Displaced Heart Sounds: Yes: S1, S2 Musculoskeletal: No: Back Pain Extremities: No: Cold Edema: No Peripheral Pulses WNL: Yes Peripheral Pulses: 2+ Left Doralis Pedis, 2+ Right Dorsalis Pedis Integumentary: No: Jaundice Neurological: Yes: Alert, Oriented Psychiatric: No: Agitated Assessment/Plan EKG: sinus, nl intervals, no ischemic changes echo 12/2016 nl LV size/function, E/A reversal, mild MAC, mild to mod MR, mild to mod TR, mild ao sclerosis, mild MO, mild ao root dilation echo 06/2018 nl LV function, mod MO, E/A reversal, apical echos c/w trabeculae cannot r/o thrombus, tr to mild MR Hypotension - has history of autonomic dysfunction, orthostatic hypotension - prior admissions noted episodes of hypotension, BP fluctuates - not receiving any BP meds here - was treated for UTI, now off abx, afebrile - nl LV function on echo, images reviewed - unlikely findings represent LV thrombi. defer further cardiac workup - likely 2/2 autonomic dysfunction UTI - completed abx, now afebrile - per ID Parkinson's dz - manage per neuro hx syncope - prior workup with Dr. Mccormack - no episodes here, h/o loop recorder with no arrhythmia
--- NOTE | 2018-07-03 21:51 | PN ---
Progress Note, Physician History of Present Illness: No new complaints - Current Medication List Current Medications: Active Medications Acetaminophen (Tylenol -) 650 mg PO Q6H PRN PRN Reason: FEVER Last Admin: 07/02/18 14:00 Dose: 650 mg Carbidopa/Levodopa (Sinemet *Cr* 50/200 -) 1 combo PO TID@0700,1200,1700 [facility] BEDS AT [facility] Last Admin: 07/03/18 18:11 Dose: 1 combo Docusate Sodium (Colace -) 100 mg PO TID [facility] 234 BEDS AT [facility] Last Admin: 07/03/18 21:25 Dose: 100 mg Donepezil HCl (Aricept -) 5 mg PO DAILY [facility]S AT [facility] Last Admin: 07/03/18 11:15 Dose: 5 mg Dextrose/Sodium Chloride (D5-1/2ns -) 1,000 mls @ 75 mls/hr IV ASDIR [facility]S [facility]CLUDE 234 BEDS AT [facility] Last Admin: 07/03/18 17:56 Dose: Not Given Megestrol Acetate (Megace -) 20 mg PO BID [facility] 234 B[facility]S AT [facility] Last Admin: 07/03/18 21:25 Dose: 20 mg Polyethylene Glycol (Miralax (For Daily Use) -) 17 gm PO DAILY [facility] B[facility]S AT [facility] Last Admin: 07/03/18 15:58 Dose: Not Given Tamsulosin HCl (Flomax -) 0.4 mg PO DAILY@0830 [facility] 234 BEDS AT [facility] Last Admin: 07/03/18 11:15 Dose: 0.4 mg - Objective Vital Signs: Vital Signs Temperature 98.3 F 07/03/18 15:46 Pulse Rate 78 07/03/18 15:46 Respiratory Rate 18 07/03/18 09:00 Blood Pressure 113/73 07/03/18 15:46 O2 Sat by Pulse Oximetry (%) 97 07/03/18 09:00 Neck: Yes: WNL, Supple Cardiovascular: Yes: WNL, Regular Rate and Rhythm Respiratory: Yes: WNL, Regular, CTA Bilaterally Gastrointestinal: Yes: WNL, Normal Bowel Sounds, Soft Extremities: Yes: WNL Edema: No Labs: CBC, BMP 06/29/18 05:30 06/29/18 05:30 INR, PTT INR 1.13 (0.83-1.09) H 06/24/18 19:51 Problem List - Problems (1) UTI (urinary tract infection) Assessment/Plan: Cont IV antibxs Code(s): N39.0 - URINARY TRACT INFECTION, SITE NOT SPECIFIED (2) Parkinson disease Assessment/Plan: Cont sinemet Await MRI C-spine PT eval Code(s): G20 - PARKINSON'S DISEASE (3) BPH (benign prostatic hyperplasia) Assessment/Plan: Cont flomax Code(s): N40.0 - BENIGN PROSTATIC HYPERPLASIA WITHOUT LOWER URINRY TRACT SYMP (4) HTN (hypertension) Assessment/Plan: BP fluctuating Pt is not on any antihypertensive meds ?orthostatic hypotension Code(s): I10 - ESSENTIAL (PRIMARY) HYPERTENSION (5) Toxic metabolic encephalopathy Assessment/Plan: Resolved Code(s): G92 - TOXIC ENCEPHALOPATHY (6) Sepsis Assessment/Plan: Due to UTI Cont IV antibxs Cont IVF Follow cultures Code(s): A41.9 - SEPSIS, UNSPECIFIED ORGANISM
[2018-07-04] MEDS: DOCUSATE SODIUM 100 MG CAPSULE (FP) PO SCH ×4 (06:14→21:23)
[2018-07-04] MEDS: DEXTROSE 5%-0.45% SALINE 1,000 ML IV SCH ×2 (06:45→21:37)
[2018-07-04] MEDS: MEGESTROL ACETATE 20 MG TABLET PO SCH ×2 (09:33→21:38)
[2018-07-04] MEDS: TAMSULOSIN HCL 0.4 MG CAP PO SCH (09:33)
[2018-07-04] MEDS: POLYETHYLENE GLYCOL 3350 119 GM BTL PO SCH (09:33)
[2018-07-04] MEDS: DONEPEZIL HCL 5 MG TABLET (FP) PO SCH (09:33)
--- NOTE | 2018-07-04 15:37 | PN ---
Progress Note, Physician History of Present Illness: Pt seen and examined. Events noted. Labs/imaging results noted. Pt is alert, eating with sister at bedside. Mild temp elevation yesterday to 99.5, currently off antibiotics. Denies SOB/cough, CP, abd pain/n/v/d, dysuria. - Current Medication List Current Medications: Active Medications Acetaminophen (Tylenol -) 650 mg PO Q6H PRN PRN Reason: FEVER Last Admin: 07/02/18 14:00 Dose: 650 mg Carbidopa/Levodopa (Sinemet *Cr* 50/200 -) 1 combo PO TID@0700,1200,1700 [facility] Last Admin: 07/04/18 12:03 Dose: 1 combo Docusate Sodium (Colace -) 100 mg PO TID [facility] Last Admin: 07/04/18 13:49 Dose: 100 mg Donepezil HCl (Aricept -) 5 mg PO DAILY [facility] Last Admin: 07/04/18 09:33 Dose: 5 mg Dextrose/Sodium Chloride (D5-1/2ns -) 1,000 mls @ 75 mls/hr IV ASDIR [facility] Last Admin: 07/04/18 06:45 Dose: 75 mls/hr Megestrol Acetate (Megace -) 20 mg PO BID [facility] Last Admin: 07/04/18 09:33 Dose: 20 mg Polyethylene Glycol (Miralax (For Daily Use) -) 17 gm PO DAILY [facility] Last Admin: 07/04/18 09:33 Dose: 17 grams Tamsulosin HCl (Flomax -) 0.4 mg PO DAILY@0830 [facility] Last Admin: 07/04/18 09:33 Dose: 0.4 mg - Objective Vital Signs: Vital Signs Temperature 99.2 F 07/04/18 13:17 Pulse Rate 89 07/04/18 13:17 Respiratory Rate 18 07/04/18 13:17 Blood Pressure 123/75 07/04/18 13:17 O2 Sat by Pulse Oximetry (%) 95 07/04/18 09:00 Constitutional: Yes: No Distress, Calm Cardiovascular: Yes: Regular Rate and Rhythm Respiratory: Yes: CTA Bilaterally Gastrointestinal: Yes: Normal Bowel Sounds, Soft Genitourinary: Yes: Incontinence Extremities: Yes: Other (RUE pain) Integumentary: Yes: WNL Neurological: Yes: Alert Labs: CBC, BMP 06/29/18 05:30 06/29/18 05:30 INR, PTT INR 1.13 (0.83-1.09) H 06/24/18 19:51 Microbiology 06/24/18 20:44 Blood - Peripheral Venous Blood Culture - Final NO GROWTH AFTER 5 DAYS INCUBATION 06/24/18 19:51 Blood - Peripheral Venous Blood Culture - Final NO GROWTH AFTER 5 DAYS INCUBATION 06/26/18 22:15 Urine - Urine Clean Catch Urine Culture - Final NO GROWTH OBTAINED 06/24/18 20:44 Urine - Urine Clean Catch Urine Culture - Final Contaminated: Please Repeat Problem List - Problems (1) BPH (benign prostatic hyperplasia) Code(s): N40.0 - BENIGN PROSTATIC HYPERPLASIA WITHOUT LOWER URINRY TRACT SYMP (2) HTN (hypertension) Code(s): I10 - ESSENTIAL (PRIMARY) HYPERTENSION (3) Orthostatic hypotension Code(s): I95.1 - ORTHOSTATIC HYPOTENSION (4) Parkinson disease Code(s): G20 - PARKINSON'S DISEASE Assessment/Plan Pt with mild temp elevation to 99.5, wbc normal, BP stable Suggest continue monitor temps/vitals off of antibiotics for now Blood/Urine cultures neg. Pt alert, comfortable
--- NOTE | 2018-07-04 21:44 | PN ---
Progress Note, Physician History of Present Illness: No new complaints - Current Medication List Current Medications: Active Medications Acetaminophen (Tylenol -) 650 mg PO Q6H PRN PRN Reason: FEVER Last Admin: 07/02/18 14:00 Dose: 650 mg Carbidopa/Levodopa (Sinemet *Cr* 50/200 -) 1 combo PO TID@0700,1200,1700 [facility] Last Admin: 07/04/18 17:02 Dose: 1 combo Docusate Sodium (Colace -) 100 mg PO TID [facility] Last Admin: 07/04/18 21:23 Dose: 100 mg Donepezil HCl (Aricept -) 5 mg PO DAILY [facility] Last Admin: 07/04/18 09:33 Dose: 5 mg Dextrose/Sodium Chloride (D5-1/2ns -) 1,000 mls @ 75 mls/hr IV ASDIR [facility] Last Admin: 07/04/18 21:37 Dose: 75 mls/hr Megestrol Acetate (Megace -) 20 mg PO BID [facility] Last Admin: 07/04/18 21:38 Dose: 20 mg Polyethylene Glycol (Miralax (For Daily Use) -) 17 gm PO DAILY [facility] Last Admin: 07/04/18 09:33 Dose: 17 grams Tamsulosin HCl (Flomax -) 0.4 mg PO DAILY@0830 [facility] Last Admin: 07/04/18 09:33 Dose: 0.4 mg - Objective Vital Signs: Vital Signs Temperature 99.2 F 07/04/18 13:17 Pulse Rate 89 07/04/18 13:17 Respiratory Rate 18 07/04/18 13:17 Blood Pressure 123/75 07/04/18 13:17 O2 Sat by Pulse Oximetry (%) 95 07/04/18 09:00 Constitutional: Yes: No Distress Neck: Yes: WNL, Supple Cardiovascular: Yes: WNL, Regular Rate and Rhythm Respiratory: Yes: WNL, Regular, CTA Bilaterally Gastrointestinal: Yes: WNL, Normal Bowel Sounds, Soft Extremities: Yes: WNL Edema: No Labs: CBC, BMP 06/29/18 05:30 06/29/18 05:30 INR, PTT INR 1.13 (0.83-1.09) H 06/24/18 19:51 Problem List - Problems (1) Parkinson disease Assessment/Plan: Cont sinemet MRI C-spine noted Code(s): G20 - PARKINSON'S DISEASE (2) BPH (benign prostatic hyperplasia) Assessment/Plan: Cont flomax Code(s): N40.0 - BENIGN PROSTATIC HYPERPLASIA WITHOUT LOWER URINRY TRACT SYMP (3) HTN (hypertension) Assessment/Plan: BP fluctuating Pt is not on any antihypertensive meds ?orthostatic hypotension Code(s): I10 - ESSENTIAL (PRIMARY) HYPERTENSION (4) Toxic metabolic encephalopathy Assessment/Plan: Resolved Code(s): G92 - TOXIC ENCEPHALOPATHY (5) UTI (urinary tract infection) Assessment/Plan: Cont IV antibxs Code(s): N39.0 - URINARY TRACT INFECTION, SITE NOT SPECIFIED (6) Sepsis Assessment/Plan: Due to UTI Cont IV antibxs Code(s): A41.9 - SEPSIS, UNSPECIFIED ORGANISM
[2018-07-05] MEDS ORDERED: PT OWN MED DRAWER 7, Y5N ONE ×2 (06:11→21:21)
[2018-07-05] MEDS: DOCUSATE SODIUM 100 MG CAPSULE (FP) PO SCH ×3 (06:31→21:24)
[2018-07-05] MEDS: MEGESTROL ACETATE 20 MG TABLET PO SCH ×2 (09:01→21:24)
[2018-07-05] MEDS: TAMSULOSIN HCL 0.4 MG CAP PO SCH (09:01)
[2018-07-05] MEDS: POLYETHYLENE GLYCOL 3350 119 GM BTL PO SCH (09:01)
[2018-07-05] MEDS: DONEPEZIL HCL 5 MG TABLET (FP) PO SCH (09:01)
[2018-07-05] MEDS: DEXTROSE 5%-0.45% SALINE 1,000 ML IV SCH ×2 (11:32→21:24)
--- NOTE | 2018-07-05 14:44 | PN ---
Progress Note, Physician History of Present Illness: Pt afebrile, alert, without acute distress. c/o Rt upper arm pain, edema reported to be resolving. Duplex neg for DVT. - Current Medication List Current Medications: Active Medications Acetaminophen (Tylenol -) 650 mg PO Q6H PRN PRN Reason: FEVER Last Admin: 07/02/18 14:00 Dose: 650 mg Carbidopa/Levodopa (Sinemet *Cr* 50/200 -) 1 combo PO TID@0700,1200,1700 [facility] Last Admin: 07/05/18 11:30 Dose: 1 combo Docusate Sodium (Colace -) 100 mg PO TID [facility] Last Admin: 07/05/18 13:53 Dose: 100 mg Donepezil HCl (Aricept -) 5 mg PO DAILY [facility] Last Admin: 07/05/18 09:01 Dose: 5 mg Dextrose/Sodium Chloride (D5-1/2ns -) 1,000 mls @ 75 mls/hr IV ASDIR [facility] Last Admin: 07/05/18 11:32 Dose: 75 mls/hr Megestrol Acetate (Megace -) 20 mg PO BID [facility] Last Admin: 07/05/18 09:01 Dose: 20 mg Polyethylene Glycol (Miralax (For Daily Use) -) 17 gm PO DAILY [facility] Last Admin: 07/05/18 09:01 Dose: 17 grams Tamsulosin HCl (Flomax -) 0.4 mg PO DAILY@0830 [facility] Last Admin: 07/05/18 09:01 Dose: 0.4 mg - Objective Vital Signs: Vital Signs Temperature 98.4 F 07/05/18 09:43 Pulse Rate 80 07/05/18 09:43 Respiratory Rate 18 07/05/18 09:43 Blood Pressure 111/61 07/05/18 09:43 O2 Sat by Pulse Oximetry (%) 94 L 07/05/18 09:00 Constitutional: Yes: No Distress, Calm Cardiovascular: Yes: Regular Rate and Rhythm Respiratory: Yes: CTA Bilaterally Gastrointestinal: Yes: Normal Bowel Sounds, Soft Extremities: Yes: Other (RUE tenderness, minimal edema, no erythema/warmth/ fluctuance) Neurological: Yes: Alert Labs: CBC, BMP 06/29/18 05:30 06/29/18 05:30 INR, PTT INR 1.13 (0.83-1.09) H 06/24/18 19:51 Problem List - Problems (1) BPH (benign prostatic hyperplasia) Code(s): N40.0 - BENIGN PROSTATIC HYPERPLASIA WITHOUT LOWER URINRY TRACT SYMP (2) HTN (hypertension) Code(s): I10 - ESSENTIAL (PRIMARY) HYPERTENSION (3) Orthostatic hypotension Code(s): I95.1 - ORTHOSTATIC HYPOTENSION (4) Parkinson disease Code(s): G20 - PARKINSON'S DISEASE Assessment/Plan Rt upper arm pain/decreased swelling pt afebrile since yesterday, without acute distress consider imaging of RUE, unclear etiology of pain - no specific findings to suggest infectious etiology continue monitor off antibiotics for now
--- NOTE | 2018-07-05 22:08 | PN ---
Progress Note, Physician History of Present Illness: No new complaints - Current Medication List Current Medications: Active Medications Acetaminophen (Tylenol -) 650 mg PO Q6H PRN PRN Reason: FEVER Last Admin: 07/02/18 14:00 Dose: 650 mg Carbidopa/Levodopa (Sinemet *Cr* 50/200 -) 1 combo PO TID@0700,1200,1700 [facility] Last Admin: 07/05/18 16:55 Dose: 1 combo Docusate Sodium (Colace -) 100 mg PO TID [facility] Last Admin: 07/05/18 21:24 Dose: 100 mg Donepezil HCl (Aricept -) 5 mg PO DAILY [facility] Last Admin: 07/05/18 09:01 Dose: 5 mg Dextrose/Sodium Chloride (D5-1/2ns -) 1,000 mls @ 75 mls/hr IV ASDIR [facility] Last Admin: 07/05/18 21:24 Dose: 75 mls/hr Megestrol Acetate (Megace -) 20 mg PO BID [facility] Last Admin: 07/05/18 21:24 Dose: 20 mg Polyethylene Glycol (Miralax (For Daily Use) -) 17 gm PO DAILY [facility] Last Admin: 07/05/18 09:01 Dose: 17 grams Tamsulosin HCl (Flomax -) 0.4 mg PO DAILY@0830 [facility] Last Admin: 07/05/18 09:01 Dose: 0.4 mg - Objective Vital Signs: Vital Signs Temperature 98.4 F 07/05/18 09:43 Pulse Rate 80 07/05/18 09:43 Respiratory Rate 18 07/05/18 09:43 Blood Pressure 111/61 07/05/18 09:43 O2 Sat by Pulse Oximetry (%) 94 L 07/05/18 09:00 Constitutional: Yes: No Distress Neck: Yes: WNL, Supple Cardiovascular: Yes: WNL, Regular Rate and Rhythm Respiratory: Yes: WNL, Regular, CTA Bilaterally Gastrointestinal: Yes: WNL, Normal Bowel Sounds, Soft Extremities: Yes: WNL Edema: No Labs: CBC, BMP 06/29/18 05:30 06/29/18 05:30 INR, PTT INR 1.13 (0.83-1.09) H 06/24/18 19:51 Problem List - Problems (1) UTI (urinary tract infection) Assessment/Plan: Change to po antibxs DC planning in am w/ [employer] Code(s): N39.0 - URINARY TRACT INFECTION, SITE NOT SPECIFIED (2) Parkinson disease Assessment/Plan: Cont sinemet MRI C-spine noted Pt denied STR by insurance Will dc home in am w/ [employer] Code(s): G20 - PARKINSON'S DISEASE (3) BPH (benign prostatic hyperplasia) Assessment/Plan: Cont flomax Code(s): N40.0 - BENIGN PROSTATIC HYPERPLASIA WITHOUT LOWER URINRY TRACT SYMP (4) HTN (hypertension) Assessment/Plan: BP fluctuating Pt is not on any antihypertensive meds ?orthostatic hypotension Code(s): I10 - ESSENTIAL (PRIMARY) HYPERTENSION (5) Toxic metabolic encephalopathy Assessment/Plan: Resolved Code(s): G92 - TOXIC ENCEPHALOPATHY (6) Sepsis Assessment/Plan: Due to UTI Resolved Code(s): A41.9 - SEPSIS, UNSPECIFIED ORGANISM
[2018-07-06] MEDS ORDERED: PT OWN MED DRAWER 7, Y5N ONE ×4 (06:45→21:07)
[2018-07-06] MEDS: DOCUSATE SODIUM 100 MG CAPSULE (FP) PO SCH ×3 (06:46→21:18)
[2018-07-06] MEDS: TAMSULOSIN HCL 0.4 MG CAP PO SCH (08:25)
[2018-07-06] MEDS: MEGESTROL ACETATE 20 MG TABLET PO SCH ×2 (10:14→21:18)
[2018-07-06] MEDS: DONEPEZIL HCL 5 MG TABLET (FP) PO SCH (10:14)
[2018-07-06] MEDS: POLYETHYLENE GLYCOL 3350 119 GM BTL PO SCH (10:14)
--- NOTE | 2018-07-06 15:02 | PN ---
Progress Note (short form) - Note Progress Note: s: no chest pain, palps, dizziness, lightheadedness Current Medications Acetaminophen (Tylenol -) 650 mg PO Q6H PRN PRN Reason: FEVER Last Admin: 07/02/18 14:00 Dose: 650 mg Carbidopa/Levodopa (Sinemet *Cr* 50/200 -) 1 combo PO TID@0700,1200,1700 [facility] Last Admin: 07/06/18 11:46 Dose: 1 combo Docusate Sodium (Colace -) 100 mg PO TID [facility] Last Admin: 07/06/18 14:49 Dose: 100 mg Donepezil HCl (Aricept -) 5 mg PO DAILY [facility] Last Admin: 07/06/18 10:14 Dose: 5 mg Megestrol Acetate (Megace -) 20 mg PO BID [facility] Last Admin: 07/06/18 10:14 Dose: 20 mg Polyethylene Glycol (Miralax (For Daily Use) -) 17 gm PO DAILY [facility] Last Admin: 07/06/18 10:14 Dose: 17 grams Tamsulosin HCl (Flomax -) 0.4 mg PO DAILY@0830 [facility] Last Admin: 07/06/18 08:25 Dose: 0.4 mg Vital Signs: Vital Signs Period Temp Pulse Resp BP Sys/Zheng Pulse Ox Last 24 Hr 97.5 F-98.4 F 80-91 20-20 83-189/40-100 93-94 Constitutional: Yes: No Distress, Calm Eyes: Yes: Conjunctiva Clear, EOM Intact HENT: Yes: Atraumatic, Normocephalic Neck: Yes: Supple, Trachea Midline Respiratory: Yes: Regular, CTA Bilaterally Gastrointestinal: Yes: Normal Bowel Sounds, Soft Cardiovascular: Yes: Regular Rate and Rhythm JVD: No Carotid Bruit: No PMI: Non-Displaced Heart Sounds: Yes: S1, S2 Musculoskeletal: No: Back Pain Extremities: No: Cold Edema: No Peripheral Pulses WNL: Yes Peripheral Pulses: 2+ Left Doralis Pedis, 2+ Right Dorsalis Pedis Integumentary: No: Jaundice Neurological: Yes: Alert, Oriented Psychiatric: No: Agitated Assessment/Plan EKG: sinus, nl intervals, no ischemic changes echo 12/2016 nl LV size/function, E/A reversal, mild MAC, mild to mod MR, mild to mod TR, mild ao sclerosis, mild IA, mild ao root dilation echo 06/2018 nl LV function, mod IA, E/A reversal, apical echos c/w trabeculae cannot r/o thrombus, tr to mild MR Hypotension - has history of autonomic dysfunction, orthostatic hypotension - prior admissions noted episodes of hypotension, BP fluctuates - not receiving any BP meds here - was treated for UTI, now off abx, afebrile - nl LV function on echo, images reviewed - unlikely findings represent LV thrombi. defer further cardiac workup - likely 2/2 autonomic dysfunction - has had BP fluctuating, asymptomatic, would defer anti-hypertensives given low BP episodes UTI - completed abx, now afebrile - per ID Parkinson's dz - manage per neuro hx syncope - prior workup with Dr. Mccormack - no episodes here, h/o loop recorder with no arrhythmia
--- NOTE | 2018-07-06 21:04 | PN ---
Progress Note, Physician - Current Medication List Current Medications: Active Medications Acetaminophen (Tylenol -) 650 mg PO Q6H PRN PRN Reason: FEVER Last Admin: 07/02/18 14:00 Dose: 650 mg Carbidopa/Levodopa (Sinemet *Cr* 50/200 -) 1 combo PO TID@0700,1200,1700 [facility] Last Admin: 07/06/18 17:03 Dose: 1 combo Docusate Sodium (Colace -) 100 mg PO TID [facility] Last Admin: 07/06/18 14:49 Dose: 100 mg Donepezil HCl (Aricept -) 5 mg PO DAILY [facility] Last Admin: 07/06/18 10:14 Dose: 5 mg Megestrol Acetate (Megace -) 20 mg PO BID [facility] Last Admin: 07/06/18 10:14 Dose: 20 mg Polyethylene Glycol (Miralax (For Daily Use) -) 17 gm PO DAILY [facility] Last Admin: 07/06/18 10:14 Dose: 17 grams Tamsulosin HCl (Flomax -) 0.4 mg PO DAILY@0830 [facility] Last Admin: 07/06/18 08:25 Dose: 0.4 mg - Objective Vital Signs: Vital Signs Temperature 98.6 F 07/06/18 18:30 Pulse Rate 75 07/06/18 18:30 Respiratory Rate 20 07/06/18 18:30 Blood Pressure 137/63 07/06/18 18:30 O2 Sat by Pulse Oximetry (%) 93 L 07/06/18 09:00 Labs: CBC, BMP 06/29/18 05:30 06/29/18 05:30 INR, PTT INR 1.13 (0.83-1.09) H 06/24/18 19:51 Problem List - Problems (1) UTI (urinary tract infection) Code(s): N39.0 - URINARY TRACT INFECTION, SITE NOT SPECIFIED (2) Parkinson disease Code(s): G20 - PARKINSON'S DISEASE (3) BPH (benign prostatic hyperplasia) Code(s): N40.0 - BENIGN PROSTATIC HYPERPLASIA WITHOUT LOWER URINRY TRACT SYMP (4) HTN (hypertension) Code(s): I10 - ESSENTIAL (PRIMARY) HYPERTENSION (5) Toxic metabolic encephalopathy Code(s): G92 - TOXIC ENCEPHALOPATHY (6) Sepsis Code(s): A41.9 - SEPSIS, UNSPECIFIED ORGANISM
[2018-07-07] MEDS: DOCUSATE SODIUM 100 MG CAPSULE (FP) PO SCH ×3 (06:10→21:47)
[2018-07-07] MEDS: TAMSULOSIN HCL 0.4 MG CAP PO SCH (09:03)
[2018-07-07] MEDS ORDERED: PT OWN MED DRAWER 7, Y5N ONE ×3 (09:04→21:44)
[2018-07-07] MEDS: MEGESTROL ACETATE 20 MG TABLET PO SCH ×2 (09:05→21:48)
[2018-07-07] MEDS: DONEPEZIL HCL 5 MG TABLET (FP) PO SCH (09:05)
[2018-07-07] MEDS: POLYETHYLENE GLYCOL 3350 119 GM BTL PO SCH (09:05)
--- NOTE | 2018-07-07 13:01 | PN ---
Progress Note, Physician - Current Medication List Current Medications: Active Medications Acetaminophen (Tylenol -) 650 mg PO Q6H PRN PRN Reason: FEVER Last Admin: 07/02/18 14:00 Dose: 650 mg Carbidopa/Levodopa (Sinemet *Cr* 50/200 -) 1 combo PO TID@0700,1200,1700 [facility] Last Admin: 07/07/18 11:58 Dose: 1 combo Docusate Sodium (Colace -) 100 mg PO TID [facility] Last Admin: 07/07/18 06:10 Dose: 100 mg Donepezil HCl (Aricept -) 5 mg PO DAILY [facility] Last Admin: 07/07/18 09:05 Dose: 5 mg Megestrol Acetate (Megace -) 20 mg PO BID [facility] Last Admin: 07/07/18 09:05 Dose: 20 mg Polyethylene Glycol (Miralax (For Daily Use) -) 17 gm PO DAILY [facility] Last Admin: 07/07/18 09:05 Dose: 17 grams Tamsulosin HCl (Flomax -) 0.4 mg PO DAILY@0830 [facility] Last Admin: 07/07/18 09:03 Dose: 0.4 mg - Objective Vital Signs: Vital Signs Temperature 98.0 F 07/07/18 04:09 Pulse Rate 84 07/07/18 10:00 Respiratory Rate 20 07/07/18 10:00 Blood Pressure 160/94 07/07/18 10:00 O2 Sat by Pulse Oximetry (%) 94 L 07/06/18 22:00 Labs: CBC, BMP 06/29/18 05:30 06/29/18 05:30 INR, PTT INR 1.13 (0.83-1.09) H 06/24/18 19:51
--- NOTE | 2018-07-07 14:53 | PN ---
Progress Note (short form) - Note Progress Note: NEUROLOGY PROGRESS: Events reviewed. Consult from ID and cardiology appreciated. Sister at bedside. Tolerating Sinemet 50/200 TID. Now on regular diet and tolerating well. Episodic fluctuations in BP noted hypotensive yesterday 83/40 in AM. Not on BP meds currently. Started PT with walker today. Still with nocturnal "pins" in R arm, disrupting sleep. Sister notes productive cough. 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 Awake, alert. Ox "Halfway." Hypophonic speech. Periods of staring. Improved rapid tongue mvm'ts. Jaw and B/L hand rest tremor + Cogwheel rigidity in the arms and rigidity in the legs. Brisk reflexes except AJ's. Flexed, shuffling, festinating. IMP: 1. Moderate OMS 2. Parkinson's disease. 3 Toxic-Metabolic encephalopathy-improved. 4. Dysautonomia associated with Parkinson's disease Plan: Continue PT and gait training with walker Continue Donepezil 5 mg PO q AM Continue Sinemet 50/200 TID Add midodrine 5 mg at 7 and 12 with Sinemet Push PO fluids Try pramipexole 0.25 mg po qhs Orthostatic BP's Thank you very much, Leodan Lucero MD
--- NOTE | 2018-07-07 15:57 | PN ---
Progress Note (short form) - Note Progress Note: s: no chest pain, palps, dizziness, lightheadedness, sob Current Medications Generic Name Dose Route Start Last Admin Trade Name Enmanuel PRN Reason Stop Dose Admin Acetaminophen 650 mg 06/25/18 12:01 07/02/18 14:00 Tylenol - PO 650 mg Q6H PRN Administration FEVER Carbidopa/Levodopa 1 combo 07/01/18 07:00 07/07/18 11:58 Sinemet *Cr* 50/200 - PO 1 combo TID@0700,1200,1700 [facility] Administration Docusate Sodium 100 mg 06/29/18 14:00 07/07/18 14:54 Colace - PO Not Given TID MICAH Donepezil HCl 5 mg 06/30/18 10:00 07/07/18 09:05 Aricept - PO 5 mg DAILY [facility] Administration Megestrol Acetate 20 mg 06/25/18 22:00 07/07/18 09:05 Megace - PO 20 mg BID [facility] Administration Midodrine 5 mg 07/08/18 07:00 Proamatine - PO BID@0700,1200 [facility] Polyethylene Glycol 17 gm 07/03/18 16:15 07/07/18 09:05 Miralax (For Daily Use) - PO 17 grams DAILY [facility] Administration Pramipexole Dihydrochloride 0.25 mg 07/07/18 22:00 Mirapex - PO HS [facility] Tamsulosin HCl 0.4 mg 06/25/18 12:00 07/07/18 09:03 Flomax - PO 0.4 mg DAILY@0830 [facility] Administration Vital Signs: Vital Signs Period Temp Pulse Resp BP Sys/Zheng Pulse Ox Last 24 Hr 98.0 F-98.6 F 75-84 20-20 137-160/63-94 94 Constitutional: Yes: No Distress, Calm Eyes: Yes: Conjunctiva Clear Respiratory: Yes: Regular, CTA Bilaterally Gastrointestinal: Yes: Normal Bowel Sounds, Soft Cardiovascular: Yes: Regular Rate and Rhythm JVD: No Carotid Bruit: No PMI: Non-Displaced Heart Sounds: Yes: S1, S2 Musculoskeletal: No: Back Pain Extremities: No: Cold Edema: No Integumentary: No: Jaundice Neurological: Yes: Alert, Oriented Psychiatric: No: Agitated CBC, BMP 06/29/18 05:30 06/29/18 05:30 Assessment/Plan EKG: sinus, nl intervals, no ischemic changes echo 12/2016 nl LV size/function, E/A reversal, mild MAC, mild to mod MR, mild to mod TR, mild ao sclerosis, mild [place], mild ao root dilation echo 06/2018 nl LV function, mod [place], E/A reversal, apical echos c/w trabeculae cannot r/o thrombus, tr to mild MR Hypotension - has history of autonomic dysfunction, orthostatic hypotension - prior admissions noted episodes of hypotension, BP fluctuates - not receiving any BP meds here - was treated for UTI, now off abx, afebrile - nl LV function on echo, images reviewed - unlikely findings represent LV thrombi. defer further cardiac workup - likely 2/2 autonomic dysfunction - has had BP fluctuating, asymptomatic, would defer anti-hypertensives given low BP episodes UTI - completed abx, now afebrile - per ID Parkinson's dz - manage per neuro hx syncope - prior workup with Dr. Mccormack - no episodes here, h/o loop recorder with no arrhythmia
[2018-07-07] MEDS: PRAMIPEXOLE DIHYDROCHLORIDE 0.25 MG TABLET PO SCH (21:47)
--- NOTE | 2018-07-07 23:49 | PN ---
Progress Note, Physician History of Present Illness: Pt denied STR by insurance company and is waiting for family to take pt home - Current Medication List Current Medications: Active Medications Acetaminophen (Tylenol -) 650 mg PO Q6H PRN PRN Reason: FEVER Last Admin: 07/02/18 14:00 Dose: 650 mg Carbidopa/Levodopa (Sinemet *Cr* 50/200 -) 1 combo PO TID@0700,1200,1700 [facility] Last Admin: 07/07/18 17:23 Dose: 1 combo Docusate Sodium (Colace -) 100 mg PO TID [facility] Last Admin: 07/07/18 21:47 Dose: 100 mg Donepezil HCl (Aricept -) 5 mg PO DAILY [facility] Last Admin: 07/07/18 09:05 Dose: 5 mg Megestrol Acetate (Megace -) 20 mg PO BID [facility] Last Admin: 07/07/18 21:48 Dose: 20 mg Midodrine (Proamatine -) 5 mg PO BID@0700,1200 [facility] Polyethylene Glycol (Miralax (For Daily Use) -) 17 gm PO DAILY [facility] Last Admin: 07/07/18 09:05 Dose: 17 grams Pramipexole Dihydrochloride (Mirapex -) 0.25 mg PO HS [facility] Last Admin: 07/07/18 21:47 Dose: 0.25 mg Tamsulosin HCl (Flomax -) 0.4 mg PO DAILY@0830 [facility] Last Admin: 07/07/18 09:03 Dose: 0.4 mg - Objective Vital Signs: Vital Signs Temperature 97.8 F 07/07/18 18:00 Pulse Rate 92 H 07/07/18 18:00 Respiratory Rate 20 07/07/18 21:00 Blood Pressure 113/65 07/07/18 18:00 O2 Sat by Pulse Oximetry (%) 94 L 07/06/18 22:00 Neck: Yes: WNL, Supple Cardiovascular: Yes: WNL, Regular Rate and Rhythm Respiratory: Yes: WNL, Regular, CTA Bilaterally Gastrointestinal: Yes: WNL, Normal Bowel Sounds, Soft Extremities: Yes: WNL Edema: No Labs: CBC, BMP 06/29/18 05:30 06/29/18 05:30 INR, PTT INR 1.13 (0.83-1.09) H 06/24/18 19:51 Problem List - Problems (1) UTI (urinary tract infection) Assessment/Plan: Cont po antibxs DC to home w/ [employer] Code(s): N39.0 - URINARY TRACT INFECTION, SITE NOT SPECIFIED (2) Parkinson disease Assessment/Plan: Cont sinemet MRI C-spine noted Pt denied STR by insurance Will dc home in am w/ [employer] Encourage PO intake/ambulation Mirapex added Code(s): G20 - PARKINSON'S DISEASE (3) BPH (benign prostatic hyperplasia) Assessment/Plan: Cont flomax Code(s): N40.0 - BENIGN PROSTATIC HYPERPLASIA WITHOUT LOWER URINRY TRACT SYMP (4) HTN (hypertension) Code(s): I10 - ESSENTIAL (PRIMARY) HYPERTENSION (5) Toxic metabolic encephalopathy Assessment/Plan: Resolved Code(s): G92 - TOXIC ENCEPHALOPATHY (6) Sepsis Assessment/Plan: Due to UTI Resolved Code(s): A41.9 - SEPSIS, UNSPECIFIED ORGANISM (7) Autonomic dysfunction Assessment/Plan: Pt w/ hypotensive episodes Midrine was added Code(s): G90.9 - DISORDER OF THE AUTONOMIC NERVOUS SYSTEM, UNSPECIFIED
[2018-07-08] MEDS: DOCUSATE SODIUM 100 MG CAPSULE (FP) PO SCH ×3 (05:29→21:59)
[2018-07-08] MEDS ORDERED: PT OWN MED DRAWER 7, Y5N ONE ×5 (06:35→21:13)
[2018-07-08] MEDS: MIDODRINE HCL 5 MG TABLET PO SCH ×2 (06:50→12:32)
--- NOTE | 2018-07-08 08:37 | PN ---
Progress Note, Physician History of Present Illness: patient stable no new issues - Current Medication List Current Medications: Active Medications Acetaminophen (Tylenol -) 650 mg PO Q6H PRN PRN Reason: FEVER Last Admin: 07/02/18 14:00 Dose: 650 mg Carbidopa/Levodopa (Sinemet *Cr* 50/200 -) 1 combo PO TID@0700,1200,1700 [facility] Last Admin: 07/08/18 06:50 Dose: 1 combo Docusate Sodium (Colace -) 100 mg PO TID [facility] Last Admin: 07/08/18 05:29 Dose: 100 mg Donepezil HCl (Aricept -) 5 mg PO DAILY [facility] Last Admin: 07/07/18 09:05 Dose: 5 mg Megestrol Acetate (Megace -) 20 mg PO BID [facility] Last Admin: 07/07/18 21:48 Dose: 20 mg Midodrine (Proamatine -) 5 mg PO BID@0700,1200 [facility] Last Admin: 07/08/18 06:50 Dose: 5 mg Polyethylene Glycol (Miralax (For Daily Use) -) 17 gm PO DAILY [facility] Last Admin: 07/07/18 09:05 Dose: 17 grams Pramipexole Dihydrochloride (Mirapex -) 0.25 mg PO HS [facility] Last Admin: 07/07/18 21:47 Dose: 0.25 mg Tamsulosin HCl (Flomax -) 0.4 mg PO DAILY@0830 [facility] Last Admin: 07/07/18 09:03 Dose: 0.4 mg - Objective Vital Signs: Vital Signs Temperature 97.8 F 07/07/18 18:00 Pulse Rate 75 07/08/18 05:48 Respiratory Rate 20 07/07/18 21:00 Blood Pressure 138/75 07/08/18 05:48 O2 Sat by Pulse Oximetry (%) 94 L 07/06/18 22:00 Constitutional: Yes: No Distress, Calm Cardiovascular: Yes: Regular Rate and Rhythm Respiratory: Yes: Regular, CTA Bilaterally Gastrointestinal: Yes: Normal Bowel Sounds, Soft Musculoskeletal: Yes: WNL Extremities: Yes: WNL Neurological: Yes: Alert, Oriented Psychiatric: Yes: Alert, Oriented Labs: CBC, BMP 06/29/18 05:30 06/29/18 05:30 INR, PTT INR 1.13 (0.83-1.09) H 06/24/18 19:51 Assessment/Plan 72 yo RH man lives with his . PMHX includes diagnosis Parkinson's Disease. Ambulates with walker admitted for recurrent falls, low blood pressure , urinary frequency, fever and flank pain. patient started on iv abx sepsis fever falls urinary incontinence weakness plan stable continue current mgmt physio rest as per the team
[2018-07-08] MEDS: MEGESTROL ACETATE 20 MG TABLET PO SCH ×2 (09:16→21:59)
[2018-07-08] MEDS: POLYETHYLENE GLYCOL 3350 119 GM BTL PO SCH (09:16)
[2018-07-08] MEDS: TAMSULOSIN HCL 0.4 MG CAP PO SCH (09:16)
[2018-07-08] MEDS: DONEPEZIL HCL 5 MG TABLET (FP) PO SCH (09:16)
[2018-07-08] MEDS: ACETAMINOPHEN 325 MG TABLET (FP) PO PRN (19:37)
[2018-07-08] MEDS: PRAMIPEXOLE DIHYDROCHLORIDE 0.25 MG TABLET PO SCH (21:59)
--- NOTE | 2018-07-09 01:37 | PN ---
Progress Note, Physician History of Present Illness: Pt seen and examined 07/08/18 however note is being entered now - Current Medication List Current Medications: Active Medications Acetaminophen (Tylenol -) 650 mg PO Q6H PRN PRN Reason: FEVER Last Admin: 07/08/18 19:37 Dose: 650 mg Carbidopa/Levodopa (Sinemet *Cr* 50/200 -) 1 combo PO TID@0700,1200,1700 [facility] Last Admin: 07/08/18 17:16 Dose: 1 combo Docusate Sodium (Colace -) 100 mg PO TID [facility] Last Admin: 07/08/18 21:59 Dose: 100 mg Donepezil HCl (Aricept -) 5 mg PO DAILY [facility] Last Admin: 07/08/18 09:16 Dose: 5 mg Megestrol Acetate (Megace -) 20 mg PO BID [facility] Last Admin: 07/08/18 21:59 Dose: 20 mg Midodrine (Proamatine -) 5 mg PO BID@0700,1200 [facility] Last Admin: 07/08/18 12:32 Dose: 5 mg Polyethylene Glycol (Miralax (For Daily Use) -) 17 gm PO DAILY [facility] Last Admin: 07/08/18 09:16 Dose: 17 grams Pramipexole Dihydrochloride (Mirapex -) 0.25 mg PO HS [facility] Last Admin: 07/08/18 21:59 Dose: 0.25 mg Tamsulosin HCl (Flomax -) 0.4 mg PO DAILY@0830 [facility] Last Admin: 07/08/18 09:16 Dose: 0.4 mg - Objective Vital Signs: Vital Signs Temperature 99.3 F 07/08/18 18:00 Pulse Rate 81 07/08/18 18:00 Respiratory Rate 20 07/08/18 09:00 Blood Pressure 108/58 L 07/08/18 18:00 O2 Sat by Pulse Oximetry (%) 94 L 07/06/18 22:00 Labs: CBC, BMP 06/29/18 05:30 06/29/18 05:30 INR, PTT INR 1.13 (0.83-1.09) H 06/24/18 19:51 Problem List - Problems (1) UTI (urinary tract infection) Code(s): N39.0 - URINARY TRACT INFECTION, SITE NOT SPECIFIED (2) Parkinson disease Code(s): G20 - PARKINSON'S DISEASE (3) BPH (benign prostatic hyperplasia) Code(s): N40.0 - BENIGN PROSTATIC HYPERPLASIA WITHOUT LOWER URINRY TRACT SYMP (4) HTN (hypertension) Code(s): I10 - ESSENTIAL (PRIMARY) HYPERTENSION (5) Toxic metabolic encephalopathy Code(s): G92 - TOXIC ENCEPHALOPATHY (6) Sepsis Code(s): A41.9 - SEPSIS, UNSPECIFIED ORGANISM (7) Autonomic dysfunction Code(s): G90.9 - DISORDER OF THE AUTONOMIC NERVOUS SYSTEM, UNSPECIFIED
[2018-07-09] MEDS ORDERED: PT OWN MED DRAWER 7, Y5N ONE ×2 (05:58→11:54)
[2018-07-09] MEDS: DOCUSATE SODIUM 100 MG CAPSULE (FP) PO SCH ×2 (06:25→13:47)
[2018-07-09] MEDS: MIDODRINE HCL 5 MG TABLET PO SCH ×2 (06:26→11:56)
[2018-07-09 07:49] LABS: BASO % 0.8 % (0-2.0); EOS % 3.9 % (0-4.5); HEMATOCRIT 30.6 % (35.4-49); HEMOGLOBIN 10.3 GM/dL (11.7-16.9); LYMPH % 34.9 % (8-40); MCH 28.8 pg (25.7-33.7); MCHC 33.5 g/dl (32.0-35.9); MEAN CELL VOLUME 86.1 fl (80-96); MEAN PLT VOLUME 7.5 fl (7.5-11.1); MONO % 7.4 % (3.8-10.2); PLATELET COUNT 291 K/MM3 (134-434); RBC 3.56 M/mm3 (4.00-5.60); RDW 15.8 % (11.9-15.9); WHITE BLOOD COUNT 5.2 K/mm3 (4.0-10.0)
[2018-07-09 08:29] LABS: ALK PHOS 190 U/L (45-117); ANION GAP 6 MMOL/L (8-16); BILIRUBIN,TOTAL 0.4 mg/dL (0.2-1); BLOOD UREA NITROGEN 21 mg/dL (7-18); CALCIUM 9.5 mg/dL (8.5-10.1); CHLORIDE 105 mmol/L (98-107); CO2 27 mmol/L (21-32); CREATININE 0.8 mg/dL (0.55-1.3); GLUCOSE,RANDOM 95 mg/dL (74-106); SGOT/AST 34 U/L (15-37); SGPT/ALT 25 U/L (13-61); SODIUM 138 mmol/L (136-145); TOT PROT 6.6 g/dl (6.4-8.2)
[2018-07-09] MEDS: TAMSULOSIN HCL 0.4 MG CAP PO SCH (08:43)
[2018-07-09] MEDS: MEGESTROL ACETATE 20 MG TABLET PO SCH (09:58)
[2018-07-09] MEDS: POLYETHYLENE GLYCOL 3350 119 GM BTL PO SCH (09:58)
[2018-07-09] MEDS: DONEPEZIL HCL 5 MG TABLET (FP) PO SCH (09:58)
--- NOTE | 2018-07-09 10:51 | PN ---
Progress Note, Physician History of Present Illness: no new issues - Current Medication List Current Medications: Active Medications Acetaminophen (Tylenol -) 650 mg PO Q6H PRN PRN Reason: FEVER Last Admin: 07/08/18 19:37 Dose: 650 mg Carbidopa/Levodopa (Sinemet *Cr* 50/200 -) 1 combo PO TID@0700,1200,1700 [facility] Last Admin: 07/09/18 06:26 Dose: 1 combo Docusate Sodium (Colace -) 100 mg PO TID [facility] Last Admin: 07/09/18 06:25 Dose: 100 mg Donepezil HCl (Aricept -) 5 mg PO DAILY [facility] Last Admin: 07/09/18 09:58 Dose: 5 mg Megestrol Acetate (Megace -) 20 mg PO BID [facility] Last Admin: 07/09/18 09:58 Dose: 20 mg Midodrine (Proamatine -) 5 mg PO BID@0700,1200 [facility] Last Admin: 07/09/18 06:26 Dose: 5 mg Polyethylene Glycol (Miralax (For Daily Use) -) 17 gm PO DAILY [facility] Last Admin: 07/09/18 09:58 Dose: 17 grams Pramipexole Dihydrochloride (Mirapex -) 0.25 mg PO HS [facility] Last Admin: 07/08/18 21:59 Dose: 0.25 mg Tamsulosin HCl (Flomax -) 0.4 mg PO DAILY@0830 [facility] Last Admin: 07/09/18 08:43 Dose: 0.4 mg - Objective Vital Signs: Vital Signs Temperature 99.3 F 07/08/18 18:00 Pulse Rate 81 07/08/18 18:00 Respiratory Rate 20 07/08/18 09:00 Blood Pressure 108/58 L 07/08/18 18:00 O2 Sat by Pulse Oximetry (%) 95 07/09/18 09:00 Labs: CBC, BMP 07/09/18 07:00 07/09/18 07:00 INR, PTT INR 1.13 (0.83-1.09) H 06/24/18 19:51
[2018-07-09 10:52] VITALS: TEMP 97.9
[2018-07-09 14:28] VITALS: BP 106/60; PULSE 88
--- NOTE | 2018-07-09 16:15 | PN ---
Progress Note (short form) - Note Progress Note: s: no chest pain, palps, dizziness, lightheadedness, sob Current Medications Acetaminophen (Tylenol -) 650 mg PO Q6H PRN PRN Reason: FEVER Last Admin: 07/08/18 19:37 Dose: 650 mg Carbidopa/Levodopa (Sinemet *Cr* 50/200 -) 1 combo PO TID@0700,1200,1700 [facility] Last Admin: 07/09/18 11:56 Dose: 1 combo Docusate Sodium (Colace -) 100 mg PO TID [facility] Last Admin: 07/09/18 13:47 Dose: 100 mg Donepezil HCl (Aricept -) 5 mg PO DAILY [facility] Last Admin: 07/09/18 09:58 Dose: 5 mg Megestrol Acetate (Megace -) 20 mg PO BID [facility] Last Admin: 07/09/18 09:58 Dose: 20 mg Midodrine (Proamatine -) 5 mg PO BID@0700,1200 [facility] Last Admin: 07/09/18 11:56 Dose: 5 mg Polyethylene Glycol (Miralax (For Daily Use) -) 17 gm PO DAILY [facility] Last Admin: 07/09/18 09:58 Dose: 17 grams Pramipexole Dihydrochloride (Mirapex -) 0.25 mg PO HS [facility] Last Admin: 07/08/18 21:59 Dose: 0.25 mg Tamsulosin HCl (Flomax -) 0.4 mg PO DAILY@0830 [facility] Last Admin: 07/09/18 08:43 Dose: 0.4 mg Vital Signs: Vital Signs Period Temp Pulse Resp BP Sys/Zheng Pulse Ox Last 24 Hr 97.9 F-99.3 F 79-88 20 92-108/58-60 95 Constitutional: Yes: No Distress, Calm Eyes: Yes: Conjunctiva Clear Respiratory: Yes: Regular, CTA Bilaterally Gastrointestinal: Yes: Normal Bowel Sounds, Soft Cardiovascular: Yes: Regular Rate and Rhythm JVD: No Carotid Bruit: No PMI: Non-Displaced Heart Sounds: Yes: S1, S2 Musculoskeletal: No: Back Pain Extremities: No: Cold Edema: No Integumentary: No: Jaundice Neurological: Yes: Alert, Oriented Psychiatric: No: Agitated Assessment/Plan EKG: sinus, nl intervals, no ischemic changes echo 12/2016 nl LV size/function, E/A reversal, mild MAC, mild to mod MR, mild to mod TR, mild ao sclerosis, mild [place], mild ao root dilation echo 06/2018 nl LV function, mod MI, E/A reversal, apical echos c/w trabeculae cannot r/o thrombus, tr to mild MR Hypotension - has history of autonomic dysfunction, orthostatic hypotension - prior admissions noted episodes of hypotension, BP fluctuates - not receiving any BP meds here - was treated for UTI, now off abx, afebrile - nl LV function on echo, images reviewed - unlikely findings represent LV thrombi. defer further cardiac workup - likely 2/2 autonomic dysfunction - has had BP fluctuating, asymptomatic, would defer anti-hypertensives given low BP episodes - on midodrine per neurology, BP stable UTI - completed abx, now afebrile - per ID Parkinson's dz - manage per neuro hx syncope - prior workup with Dr. Mccormack - no episodes here, h/o loop recorder with no arrhythmia
== END 2018-07-09 18:19 | disposition home health service (06) | DRG 871 ==
LOC: JER 18:25 → JERBED 22:58 → J4W 06-25 20:38 → J6S 06-30 20:13
PROVIDERS: ADMIT Internal Medicine; ATTEND Internal Medicine
DX: A41.9 Sepsis, unspecified organism (principal); G92 Toxic encephalopathy; N39.0 Urinary tract infection, site not specified; I42.9 Cardiomyopathy, unspecified; G20 Parkinson's disease; F06.1 Catatonic disorder due to known physiological condition; G90.8 Other disorders of autonomic nervous system; R35.0 Frequency of micturition; R11.10 Vomiting, unspecified; N40.0 Benign prostatic hyperplasia without lower urinary tract symptoms; I11.0 Hypertensive heart disease with heart failure; I50.9 Heart failure, unspecified; I95.1 Orthostatic hypotension; R29.6 Repeated falls; Z86.73 Personal history of transient ischemic attack (TIA), and cerebral infarction without residual deficits; I34.0 Nonrheumatic mitral (valve) insufficiency; I36.1 Nonrheumatic tricuspid (valve) insufficiency; G90.9 Disorder of the autonomic nervous system, unspecified
CPT/HCPCS: 36415; 71045-TC-FY; 72141-TC; 80053; 81003; 82550; 82553; 82607; 83540; 83550; 83605; 84443; 84484; 85025; 85379; 85610; 85730; 86593; 87040; 87086; 93005; 93010; 93306-TC; 93971; 97116-GP; 97161-GP; 99284-25; J1644; J7030; J8999

== ENCOUNTER 2018-10-24 22:31 | Emergency (ER) | payer OTHER | END 2018-10-25 03:52 | disposition E | LOC: JER 22:31 | PROC: 5A02216 Assistance with Cardiac Output using Other Pump, Continuous (ICD-10-PCS; principal; 2018-10-24) | PROC: 3E03317 Introduction of Other Thrombolytic into Peripheral Vein, Percutaneous Approach (ICD-10-PCS; 2018-10-24) | PROC: B246ZZZ Ultrasonography of Right and Left Heart (ICD-10-PCS; 2018-10-24) | DX: I46.9 Cardiac arrest, cause unspecified (principal); I10 Essential (primary) hypertension; I42.0 Dilated cardiomyopathy; G90.3 Multi-system degeneration of the autonomic nervous system; G30.9 Alzheimer's disease, unspecified; F02.80 Dementia in other diseases classified elsewhere, unspecified severity, without behavioral disturbance, psychotic disturbance, mood disturbance, and anxiety; N40.0 Benign prostatic hyperplasia without lower urinary tract symptoms; G20 Parkinson's disease ==